=== PATIENT | female | born 2000 | race Caucasian/White ===

== ENCOUNTER 2019-09-21 10:53 | Emergency (ER) | payer MEDICAID, SELFPAY ==
[2019-09-21 10:55] VITALS: BP 119/83; PULSE 99; RESP 17; TEMP 36.6; O2SAT 99; BMI 25.9
--- NOTE | 2019-09-21 11:17 | ED.DCSUM_ITS ---
- ER Visit Summary Date of Service: 09/21/19 Chief Complaint: Headaches History of Present Illness: The patient is a 19 F significant past medical history of SVT. Patient states she has had headaches intermittently for the last 3 years. Currently she is under a lot of stress because her and her child's father are currently . She moved back to this area and was previously living in [place]. States that she often gets headaches. Initially they were daily now 2-3 times a week. No fever. No trauma. Only mild sinus congestion. No history of intracranial bleeds or aneurysms. Physical Examination: Young female no acute distress. Vital signs are stable and afebrile. HEENT exam unremarkable. Pupils are reactive light extra motions are intact. No facial droop. No signs of trauma. TMs normal. Neck nontender. No meningismus. Able to touch chin to chest. Lungs clear. Heart regular rhythm no murmur. Abdomen soft nontender. Extremities moves all 4. Neurovascular intact. Neurologically she is awake alert. No focal motor or sensory deficits. 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 Fingertip to nose within normal limits. Dorsi plantarflexion intact. Normal [id number]. NIH score 0. Test Results: None Emergency Department Course and Treatment: Patient's exam is normal. She has mild discomfort in her neck consistent with tension headache. Treatment Plan: Motrin or Tylenol for pain. Get established with a local primary care physician. Disposition: Discharge Impression: Tension headaches This note was generated with [employer] dictation software. It may contain incorrect words, spelling, and punctuation that were not noted in review of the chart prior to signing ED Disposition - Plan for ED Patient: Referrals: Care Physician,No Primary [Primary Care Provider] -
--- NOTE | 2019-09-21 11:20 | ED.DEP ---
ED Disposition - Plan for ED Patient: Disposition: Home or Assisted Living Instructions: Tension Headaches Prescriptions: Albuterol IH (ProAir) [Proair Hfa] 2 puff INHALATION Q4H PRN PRN #1 inhaler PRN Reason: Wheezing Prescription Printed Referrals: Rosendo Lanza MD [STAFF PHYSICIAN] - As Needed Additional Instructions: Use Tylenol and/or Motrin for your headaches. Follow-up with a local primary care physician.
[2019-09-21 12:01] VITALS: RESP 16
== END 2019-09-21 12:01 | disposition home or self-care (01) ==
PROVIDERS: Emergency Provider Emergency Medicine
DX: G44.209 Tension-type headache, unspecified, not intractable (principal); I47.1 Supraventricular tachycardia; Z72.0 Tobacco use
CPT/HCPCS: 99282

== ENCOUNTER 2019-10-03 11:19 | Emergency (ER) | payer MEDICAID, SELFPAY ==
[2019-10-03 11:19] VITALS: BP 118/79; PULSE 97; RESP 16; TEMP 36.3; O2SAT 98; BMI 25.7
--- NOTE | 2019-10-03 11:27 | RAD_ITS ---
STUDY: X-RAY - RIGHT HAND, ATTENTION FOURTH FINGER REASON FOR EXAM: Female, 19 years old. Pain following injury. TECHNIQUE: 3 view(s) of the finger were obtained. COMPARISON: None. FINDINGS: Normal metacarpal head. Normal metacarpophalangeal joint. Normal proximal phalanx. Normal middle phalanx. Normal distal phalanx. Normal proximal interphalangeal joint. Normal distal interphalangeal joint. RAD/Finger(s) Min 2 Views IMPRESSION: Normal x-ray examination of the finger. Electronically Signed: Magen Manzanares, at 12:15 EST , Service support ,
--- NOTE | 2019-10-03 11:29 | ED.VISSUMM ---
- ER Visit Summary Date of Service: 10/03/19 Chief Complaint: Right ring finger injury History of Present Illness: The patient is a 19 F who sustained an injury to her right ring finger yesterday. She states her hand came down striking bluntly and object resulting in extension injury. She notes that the ring finger is tender and swollen today. Physical Examination: Afebrile vital signs stable There is tenderness and swelling of the DIP joint of the right ring finger. No obvious deformity. Neurovascular intact. Excellent capillary refill. No evidence of infection Test Results: Finger films were negative for fracture. Emergency Department Course and Treatment: This will be treated as a sprain. Will silvia tape. Conservative treatment with Motrin ice. Follow-up 10 to 14 days if not improved Impression: 1. Right ring finger DIP joint sprain This note was generated with [employer] dictation software. It may contain incorrect words, spelling, and punctuation that were not noted in review of the chart prior to signing ED Disposition - Plan for ED Patient: Disposition: Home or Assisted Living Instructions: Sprain Finger Referrals: Marquise Kearney MD [STAFF PHYSICIAN] - 10-14 Days if not better
== END 2019-10-03 12:07 | disposition home or self-care (01) ==
LOC: ED 12:01
PROVIDERS: Emergency Provider Emergency Medicine
DX: S63.634A Sprain of interphalangeal joint of right ring finger, initial encounter (principal); W22.8XXA Striking against or struck by other objects, initial encounter; Y93.9 Activity, unspecified; Y92.9 Unspecified place or not applicable; J45.909 Unspecified asthma, uncomplicated; Z72.0 Tobacco use
CPT/HCPCS: 73140; 99282

== ENCOUNTER 2019-12-05 23:36 | Emergency (ER) | payer MEDICAID, SELFPAY ==
[2019-12-05 23:36] VITALS: BP 146/101; PULSE 111; RESP 18; TEMP 36.2; O2SAT 99; BMI 26.6
--- NOTE | 2019-12-05 23:42 | ED.RN ---
RN CALLED FOR EKG, PULLED OLD EKGS FOR
--- NOTE | 2019-12-05 23:47 | EKG12_ITS ---
Test Reason : CP Blood Pressure : / mmHG Vent. Rate : 100 BPM Atrial Rate : 100 BPM P-R Int : 164 ms QRS Dur : 090 ms QT Int : 344 ms P-R-T Axes : 048 076 038 degrees QTc Int : 443 ms Normal sinus rhythm Normal ECG Confirmed by CATHI CORTÉS, MARCUS ([id number]), writer editor WASHINGTON NUÑEZ ([id number]) on 12/09/2019 9:49:34 AM Referred By: MONIQUE Confirmed By:UNIQUE WINKLER MD
--- NOTE | 2019-12-06 | RAD_ITS ---
STUDY: X-RAY CHEST REASON FOR EXAM: Female, 19 years old. PT REPORTS INTERMITTENT HEART PALPITATIONS AND CHEST TIGHTNESS. HX OF SVT. SOB, DIZZNESS TECHNIQUE: PA and lateral views of the chest. COMPARISON: 10/29/2017. FINDINGS: The lungs are clear and expanded. There is no demonstrated pleural abnormality. Normal size heart. Normal mediastinum and claude. Normal visualized pulmonary arteries. Normal visualized aortic arch and descending thoracic aorta. Normal visualized thoracic spine. Normal visualized ribs, clavicles, and shoulders. There is no demonstrated abnormality of the visualized soft tissue structures of the upper abdomen. RAD/Chest PA and Lateral IMPRESSION: Normal x-ray examination of the chest. Electronically Signed: Blossom Deleon MD at 0:38 EST , Service support ,
--- NOTE | 2019-12-06 00:02 | ED.VIS.GEN ---
History of Present Illness Chief Complaint: Palpitations Informant: Patient Onset: Days Context: Gradual Onset Timing: Intermittent Current Severity: Moderate Maximum Severity: Moderate Narrative: The patient is an otherwise healthy 19-year-old female with history of SVT when she was younger. She had an ablation in 2005. She states she is been in her normal state of health. Over the past 10 days, she has had intermittent chest tightness. She describes a sharp stabbing pain in various areas of the chest that would last seconds to minutes. She states at times is worse with breathing. She also feels like her heart has been racing intermittently. She denies any loss of consciousness. She has no family history of coronary vascular disease. She denies any history of pulmonary embolus. She has had a scant cough, but denies any productive sputum. She states tonight, the symptoms are worse so she came into the emergency department. Prior similar symptoms: Yes Recent Illness/Hospitalization: No Past Medical History - Allergies and Home Meds Allergies/Adverse Reactions: Allergies diphenhydramine [From Benadryl] Allergy (Verified 12/05/19 23:36) Unknown Penicillins [PCN] Allergy (Verified 12/05/19 23:36) Unknown Primary Care Physician: Gilbert Ojeda MD [STAFF PHYSICIAN] - Prior records reviewed: Yes Past Medical History: - - History of SVT status post ablation Surgical History: noncontributory Smoking Status: Current some day smoker Review of Systems General: Denies: Chills, Fever, Sweats Eyes: Denies: Visual changes - bilaterally, Diplopia ENT: Denies: Rhinorrhea, Sore throat Cardiovascular: Reports: Chest pain, Palpitations Respiratory: Reports: Dyspnea Gastrointestinal: Denies: Abdominal pain, Nausea, Vomiting, Diarrhea, Melena, Hematochezia Genitourinary: Denies: Dysuria, Hematuria, Frequency Musculoskeletal: Denies: Back pain, Extremity Pain Skin: Denies: Rash, Wounds Neurological: Denies: Headache, Weakness, Numbness Physical Exam Vital Signs/Narrative: Vital Signs Temp Pulse Resp BP Pulse Ox 12/05/19 23:36 97.1 F L 111 H 18 146/101 H 99 Inital Vital Signs reviewed: Yes General: Well nourished, Well developed, No Acute Distress Head: Normocephalic, Atraumatic Eyes: Perrl, EOMI ENT: Moist mucous membranes, No rhinorrhea Neck: Supple, Nontender Cardiovascular: Regular rate, Regular rhythm, No murmurs Respiratory: No distress, CTA bilaterally, Chest nontender Abdomen: Soft, Nontender, Nondistended, Normal bowel sounds Back: Nontender, Normal Inspection Extremities: Nontender, No edema Skin: Normal color, No rash Neurological: Alert, Oriented x3, Cranial nerves II-XII grossly intact, Normal Strength, Normal Sensation Psychological: Normal affect, Normal Mood Diagnostic/Tx/Re-eval Clinical Impression(s) from Imaging Studies Chest X-Ray 12/06/19 00:00 IMPRESSION: Normal x-ray examination of the chest. Electronically Signed: Blossom Deleon MD at 0:38 EST , Service support , Abnormal Lab Results 12/05/19 12/05/19 12/05/19 23:55 23:55 23:55 WBC 10.5 RBC 4.70 Hgb 11.2 L Hct 37.2 MCV 79.1 L MCH 23.8 L MCHC 30.1 L RDW Std Deviation 44.6 H RDW Coeff of Jessica 15.6 H Plt Count 450 MPV 10.9 Immature Gran % (Auto) 0.300 Neut % (Auto) 59.2 Lymph % (Auto) 29.8 [place] % (Auto) 7.8 Eos % (Auto) 2.4 Baso % (Auto) 0.5 Absolute Neuts (auto) 6.2 Absolute Lymphs (auto) 3.13 Nucleated RBC % 0 D-Dimer Quant (PE/DVT) < 0.27 L Sodium 142 Potassium 4.1 Chloride 109 H Carbon Dioxide 29.0 Anion Gap 4 L BUN 16 Creatinine 0.89 Estim Creat Clear Calc 72.43 Est GFR (MDRD) Af Amer 104 Est GFR (MDRD) Non-Af 86 BUN/Creatinine Ratio 18.0 Glucose 98 Calcium 9.4 Total Bilirubin 0.10 L AST 17 ALT 24 Alkaline Phosphatase 144 H Troponin I < 0.015 Total Protein 8.0 Albumin 4.0 Globulin 4.0 Albumin/Globulin Ratio 1.0 Urine Color Urine Clarity Urine pH Ur Specific Rousseau Urine Protein Urine Glucose (UA) Urine Ketones Urine Occult Blood Urine Nitrite Urine Bilirubin Urine Urobilinogen Ur Leukocyte Esterase Urine RBC Urine WBC Ur Squamous Epith Cells Urine Bacteria Urine Mucus Urine Test 12/06/19 12/06/19 00:30 00:30 WBC RBC Hgb Hct MCV MCH MCHC RDW Std Deviation RDW Coeff of Jessica Plt Count MPV Immature Gran % (Auto) Neut % (Auto) Lymph % (Auto) [place] % (Auto) Eos % (Auto) Baso % (Auto) Absolute Neuts (auto) Absolute Lymphs (auto) Nucleated RBC % D-Dimer Quant (PE/DVT) Sodium Potassium Chloride Carbon Dioxide Anion Gap BUN Creatinine Estim Creat Clear Calc Est GFR (MDRD) Af Amer Est GFR (MDRD) Non-Af BUN/Creatinine Ratio Glucose Calcium Total Bilirubin AST ALT Alkaline Phosphatase Troponin I Total Protein Albumin Globulin Albumin/Globulin Ratio Urine Color Yellow Urine Clarity Clear Urine pH 6.0 Ur Specific Rousseau 1.025 Urine Protein Negative Urine Glucose (UA) Normal Urine Ketones Negative Urine Occult Blood Negative Urine Nitrite Negative Urine Bilirubin Negative Urine Urobilinogen Normal Ur Leukocyte Esterase 100 H Urine RBC 0 SEEN Urine WBC 0-5 SEEN Ur Squamous Epith Cells 0-5 SEEN Urine Bacteria 0 SEEN Urine Mucus 0 SEEN Urine Test Negative - Rhythm Strip Rhythm Strip: Sinus Rhythm Rate: 90 Ectopy: None - EKG Initial EKG Interpretation: Sinus Rhythm, No Acute Injury Pattern Prior: Unchanged - Medical Decision Making EKG was obtained on patient arrival. Was sinus rhythm. There was no SVT, WPW, or dysrhythmia. The patient's pain seems very atypical, but given her cardiac history, metabolic work-up was pursued. There is a component of pleuritic pain so d-dimer was obtained was negative. Cardiac enzymes are unremarkable. Electrolytes are unremarkable. Patient is not . X-ray shows no evidence of volume overload, pneumothorax, or other dangerous process. At this point, I do feel that this is more likely symptomatic palpitations. With the patient's history, she will be given outpatient cardiology follow-up. She is comfortable with this plan of care and will be discharged home. Impression 1. Atypical chest pain 2. Palpitations ED Disposition - Plan for ED Patient: Instructions: Palpitations Referrals: Gilbert Ojeda MD [STAFF PHYSICIAN] -
[2019-12-06] MEDS: 0.9% Normal Saline 1,000 ML 1000 ML IV (00:03)
[2019-12-06] MEDS: Ketorolac 30 MG/ML Syringe IV (00:04)
[2019-12-06 00:20] LABS: Absolute Lymphocyte Count 3.13 X10^3/uL (0.83-4.51); Absolute Neutrophil Count 6.2 X10^3/uL (2.0-7.7); Basophil# 0.05 X10^3/uL; Basophil% 0.5 % (0-1); Eosinophil# 0.25 X10^3/uL; Eosinophils% 2.4 % (0-5); Hematocrit 37.2 % (37-47); Hemoglobin 11.2 g/dL (12.0-15.0); Lymphocyte # 3.13 X10^3/ul (4.0); Lymphocyte % 29.8 % (19-41); Mean Corp Hgb Conc 30.1 g/dL (32-36); Mean Corpuscular Hgb 23.8 pg (27.0-32.0); Mean Corpuscular Volume 79.1 fL (81-99); Mean Platelet Vol. 10.9 fl (6.2-12.0); Monocyte# 0.82 X10^3/uL; Monocyte% 7.8 % (0-10); NRBC Flagged by Analyzer 0 % (0-5); Neutrophil # 6.24 X10^3/uL (2.7-7.7); Neutrophil % 59.2 % (47-70); Platelet Count 450 K/mm3 (150-450); RBC Distribution Width CV 15.6 % (11.6-14.6); RBC Distribution Width SD 44.6 fl (35.1-43.9); White Blood Count 10.5 K/mm3 (4.4-11.0)
[2019-12-06 00:36] LABS: Bacteria 0 SEEN /hpf (None Seen); Mucous, Urine 0 SEEN /hpf (<or=2+); Red Blood Cells-Urine 0 SEEN /hpf (0-5)
[2019-12-06 00:37] LABS: Color, Urine Yellow (Yellow); Glucose, Dipstick Normal (Normal); Ketone-Dipstick Negative (Negative); Leukocyte Esterase-Dipstick 100 /ul (Negative); Nitrite-Dipstick Negative (Negative); Occult Blood-Urine Negative /ul (Negative); Protein-Dipstick Negative (Negative); Specific Gravity, Urine 1.025 (1.002-1.030); Urine Bilirubin Dipstick Negative (Negative); Urine Clarity Clear (Clear); Urine Urobilinogen Normal (Normal)
[2019-12-06 00:41] LABS: AST(SGOT) 17 U/L (15-37); Alanine Aminotransfer ALT/SGPT 24 U/L (13-56); Alkaline Phosphatase 144 U/L (45-117); Anion Gap 4 (5-15); BUN 16 mg/dL (7-18); Calcium,Total 9.4 mg/dL (8.5-10.1); Chloride 109 mmol/L (98-107); Creatinine, Serum 0.89 mg/dL (0.55-1.02); EST Glomerular Filtration Rate 86 mL/min (>60); Est Glom Filt Rate - Afr Amer 104 mL/min (>60); Estimated Creatinine Clearance 72.43 ml/min; Glucose 98 mg/dL (74-106); Potassium 4.1 mmol/L (3.5-5.1); Sodium Level 142 mmol/L (136-145)
[2019-12-06 00:43] LABS: Squamous Epithelial Cells - UA 0-5 SEEN /hpf (5-10); White Blood Cells 0-5 SEEN /hpf (0-5)
[2019-12-06 00:44] LABS: Internal QC Validated? YES +Cl - CLEAR BKGD; Pregnancy, Urine Negative Negative
[2019-12-06 00:49] LABS: D-Dimer Quantitative (DVT/PE) < 0.27 FEU/ug/m (0.27-0.49)
[2019-12-06 00:58] VITALS: BP 112/75; PULSE 86; RESP 15; O2SAT 98
== END 2019-12-06 00:59 | disposition home or self-care (01) ==
PROVIDERS: Emergency Provider Emergency Medicine
DX: R07.89 Other chest pain (principal); R07.81 Pleurodynia; I47.1 Supraventricular tachycardia; R06.00 Dyspnea, unspecified; R05 Cough; F17.200 Nicotine dependence, unspecified, uncomplicated; Z88.0 Allergy status to penicillin; Z88.8 Allergy status to other drugs, medicaments and biological substances
CPT/HCPCS: 71046; 80053; 81001; 81025; 84484; 85025; 85379; 93005; 96361; 96374; 99284; J7030; A4216

== ENCOUNTER 2020-01-25 20:39 | Emergency (ER) | payer MEDICAID, SELFPAY ==
[2020-01-25 20:41] VITALS: BP 132/88; PULSE 96; RESP 17; TEMP 36.6; O2SAT 97; BMI 25.4
--- NOTE | 2020-01-25 21:03 | US_ITS ---
STUDY: FIRST TRIMESTER OBSTETRICAL ULTRASOUND REASON FOR EXAM: Female, 19 years old RT TO MIDLINE PELVIC PAIN - SHARP CHEST PAIN - JUST TODAY NAUSEA beta-hCG 1614 LMP: 12/19/2019 TECHNIQUE: Transvaginal TECHNICAL QUALITY: Adequate. PRIOR ULTRASOUND: None. FINDINGS: There is visualization of a single gestational sac in a normal intrauterine position. The mean sac diameter (MSD) measures 4.9 mm, indicating an estimated gestational age (EGA) of 5 weeks, 0 days. The gestational sac shape is within normal limits. Probable adjacent subchorionic hemorrhage. There is no demonstrated yolk sac. The placenta is non-visualized. No pole is seen at this time. The estimated gestation age (EGA) by LMP is 5 weeks, 2 days. The estimated date of delivery (DARION) by LMP is 09/24/2020. The estimated gestation age (EGA) by US is 5 weeks, 0 days. The estimated date of delivery (DARION) by US is 09/26/2020. The uterus measures 7.9 x 5.6 x 5.4 cm. There is no demonstrated uterine fibroid. The cervix is closed. The right ovary measures 2.9 x 2.5 x 2.2 cm. There is no right ovarian cyst. There is no visualized right adnexal mass or complex lesion. The left ovary measures 2.2 x 1.3 x 1.2 cm. There is no left ovarian cyst. There is no visualized left adnexal mass or complex lesion. There is no fluid in the cul de sac. Debris is present in the bladder. US/Transvaginal w/Preg US IMPRESSION: Intrauterine gestational sac with estimated sonographic age of 5 weeks 0 days. Probable adjacent subchorionic hemorrhage. No pole or yolk sac is visible at this time. It is likely too early for sonographic visualization of those structures and continued ultrasound and beta hCG follow up is needed. Electronically Signed: Fabian Gonzalez MD at 22:19 EST Tel , Service support ,
[2020-01-25 21:16] LABS: Mucous, Urine 0 SEEN /hpf (<or=2+); Red Blood Cells-Urine 0 SEEN /hpf (0-5)
[2020-01-25 21:23] LABS: Color, Urine Yellow (Yellow); Glucose, Dipstick Normal (Normal); Ketone-Dipstick Negative (Negative); Leukocyte Esterase-Dipstick 500 /ul (Negative); Nitrite-Dipstick Negative (Negative); Occult Blood-Urine Negative /ul (Negative); Protein-Dipstick Negative (Negative); Specific Gravity, Urine 1.015 (1.002-1.030); Urine Bilirubin Dipstick Negative (Negative); Urine Clarity Sl. Cloudy (Clear); Urine Urobilinogen Normal (Normal); Urine pH 6.5 (5.0 - 8.0)
[2020-01-25 21:25] LABS: Internal QC Validated? YES +Cl - CLEAR BKGD
[2020-01-25 21:27] LABS: Pregnancy, Urine Positive Negative
[2020-01-25 21:36] LABS: Squamous Epithelial Cells - UA 0-5 SEEN /hpf (5-10); White Blood Cells 10-25 SEEN /hpf (0-5)
[2020-01-25 21:37] LABS: Bacteria 1+ /hpf (None Seen)
[2020-01-25 21:52] LABS: hCG Titer Quant., Serum 1614 mIU/mL (1-3)
--- NOTE | 2020-01-25 22:33 | ED.VIS.FEGU ---
History of Present Illness Chief Complaint: Abd Pain Informant: Patient Narrative: Patient presenting for evaluation due to pelvic pain. Patient's last normal menstrual period was on 25 November, she reports that she started to develop pelvic pain over the course of the last couple of days. She reports that it comes and goes. Patient states that she has not had any vaginal bleeding or discharge but has difficulty at the end of her urinating stream. She denies any hematuria. Patient denies any fevers, but does state that she has been having some issues with nausea and vomiting. Patient reports that she took a home test that was found to be positive. She is a G2, P1. She is unsure of her blood type. Past Medical History - Allergies and Home Meds Allergies/Adverse Reactions: Allergies diphenhydramine [From Benadryl] Allergy (Verified 01/25/20 20:39) Unknown Penicillins [PCN] Allergy (Verified 01/25/20 20:39) Unknown Primary Care Physician: Care Physician,No Primary [Primary Care Provider] - Past Medical History: None Surgical History: noncontributory Smoking Status: Light Smoker (<10/day) Review of Systems General: Denies: Chills, Fever, Sweats Eyes: Denies: Visual changes - bilaterally, Diplopia ENT: Denies: Rhinorrhea, Sore throat Cardiovascular: Denies: Chest pain, Palpitations Respiratory: Denies: Dyspnea, Cough, Dyspnea on exertion Gastrointestinal: Reports: Abdominal pain, Nausea, Vomiting Genitourinary: Reports: Dysuria Musculoskeletal: Denies: Back pain, Extremity Pain Skin: Denies: Rash, Wounds Neurological: Denies: Headache, Weakness, Numbness Physical Exam Vital Signs/Narrative: Vital Signs Temp Pulse Resp BP Pulse Ox 01/25/20 20:41 97.8 F 96 17 132/88 H 97 Inital Vital Signs reviewed: Yes General: Well nourished, Well developed Head: Normocephalic, Atraumatic Eyes: Perrl, EOMI ENT: Moist mucous membranes, No rhinorrhea Neck: Supple, Nontender Cardiovascular: Regular rate, Regular rhythm, No murmurs Respiratory: No distress, CTA bilaterally, Chest nontender Abdomen: Soft, Nontender, Nondistended, Normal bowel sounds : Speculum exam: Normal external genitalia, No vaginal lesions, No vaginal discharge, No blood in vault, No active bleeding Bimanual exam: No cervical motion tenderness, Os closed, Normal size uterus, Nontender uterus Back: Nontender, Normal Inspection Extremities: Nontender, No edema Skin: Normal color, No rash Neurological: Alert, Oriented x3, Cranial nerves II-XII grossly intact, Normal Strength, Normal Sensation Psychological: Normal affect Diagnostic/Tx/Re-eval - Medical Decision/Diagnostic Studies Patient presented secondary to pelvic pain with positive test. I attempted to perform a bedside pelvic ultrasound on the patient, but she had just voided and I was not able to identify any sort of products of conception. Urinalysis was obtained which does show evidence of urinary tract infection. Patient's urine was positive, her quantitative hCG was found to be in the 1000 range consistent with early . Pelvic ultrasound demonstrated a gestational sac with no pole and a possible subchorionic hemorrhage. Patient at this point has early , and a urinary tract infection. She requested treatment for nausea, she will be given Zofran. She will be treated with Macrobid for treatment of her urinary tract infection. Patient reports that she has follow-up coming with Dr. Lujan, she was instructed to keep that. ED Disposition - Plan for ED Patient: Disposition: Home or Assisted Living Diagnosis: First trimester , Urinary tract infection Instructions: Bladder Infection, Female (Adult), ABDOMINAL PAIN, Early Prescriptions: Nitrofurantoin Macrocrystals [Macrobid] 100 mg PO Q12 #10 cap Prescription Printed Ondansetron [Zofran Odt] 8 mg PO Q8H PRN PRN #20 tab PRN Reason: Nausea Prescription Printed Referrals: Flavia Lujan MD [STAFF PHYSICIAN] - Keep Danika appointment
[2020-01-25] MEDS: Ondansetron ODT 4 MG Tablet PO (22:36)
[2020-01-25] MEDS: Nitrofurantoin Macrocrystals 100 MG Capsule PO (22:36)
[2020-01-25 22:41] VITALS: BP 128/61; PULSE 78; RESP 18; O2SAT 98
== END 2020-01-25 22:42 | disposition home or self-care (01) ==
PROVIDERS: Emergency Provider Emergency Medicine
DX: O23.41 Unspecified infection of urinary tract in pregnancy, first trimester (principal); O21.9 Vomiting of pregnancy, unspecified; F17.200 Nicotine dependence, unspecified, uncomplicated; O99.331 Smoking (tobacco) complicating pregnancy, first trimester; Z88.0 Allergy status to penicillin; Z88.8 Allergy status to other drugs, medicaments and biological substances; Z3A.01 Less than 8 weeks gestation of pregnancy
CPT/HCPCS: 76817; 81001; 81025; 84702; 86900; 86901; 99283; A4216

== ENCOUNTER 2020-01-30 09:51 | Emergency (ER) | payer MEDICAID, SELFPAY ==
[2020-01-30 09:53] VITALS: BP 132/61; PULSE 91; RESP 17; TEMP 36.9; O2SAT 97; BMI 25.2
--- NOTE | 2020-01-30 10:07 | ED.DCSUM_ITS ---
History of Present Illness Chief Complaint: Eye Problem Informant: Patient Onset: Yesterday Current Severity: Mild Maximum Severity: Moderate Narrative: Patient states she developed right eye irritation yesterday with what she thought was a stye. After she got home and looked at her eyes she noted white drainage from her eye. She did have some crusting and watering this morning. She does report some irritation of her eye that is worse with blinking. She is not sure if she may have gotten something in her eye, but does not have definitive foreign body sensation. She does wear glasses. She denies contact use. - Past Medical History (1) Early stage of Status: Acute Past Medical History - Allergies and Home Meds Allergies/Adverse Reactions: Allergies diphenhydramine [From Benadryl] Allergy (Verified 01/30/20 09:53) CHILDHOOD ALLERGY Penicillins [PCN] Allergy (Verified 01/30/20 09:53) CHILDHOOD ALLERGY Primary Care Physician: Care Physician,No Primary [Primary Care Provider] - Prior records reviewed: Yes Surgical History: noncontributory Smoking Status: Never smoker Review of Systems Eyes: Reports: - - Irritation right eye. Denies: Visual changes - left, Visual changes - right ENT: Denies: Bilateral ear pain, Sore throat Cardiovascular: Denies: Chest pain Respiratory: Denies: Dyspnea, Cough Gastrointestinal: Denies: Abdominal pain, Nausea, Vomiting, Diarrhea Skin: Denies: Rash Neurological: Denies: Headache Physical Exam Vital Signs/Narrative: Vital Signs Temp Pulse Resp BP Pulse Ox 01/30/20 09:53 98.5 F 91 17 132/61 H 97 Inital Vital Signs reviewed: Yes General: Well nourished, Well developed Head: Normocephalic Eyes: Perrl, EOMI, - - Mild conjunctival injection. Mild eyelid edema. No sign of periorbital cellulitis. ENT: Moist mucous membranes Neck: Supple Cardiovascular: Regular rate, Regular rhythm Respiratory: No distress, CTA bilaterally Abdomen: Soft, Nontender Diagnostic/Tx/Re-eval - Medical Decision Making Tetracaine was applied to the right eye. Fluorescein was applied with no evidence of uptake. Patient's exam findings are consistent with conjunctivitis. She will be given gentamicin ophthalmic eyedrops. 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 ED Disposition - Plan for ED Patient: Disposition: Home or Assisted Living Diagnosis: Conjunctivitis Instructions: CONJUNCTIVITIS, Non-Specific Referrals: Matthew Chery MD [STAFF PHYSICIAN] - As Needed Additional Instructions: Gentamicin eye drops - 2 drops to right eye every 4-6 hours until symptoms resolved for 24 hours.
[2020-01-30] MEDS: Fluorescein 1 MG STRIP 1 STRIP RIGHT EYE (10:21)
[2020-01-30] MEDS: Tetracaine 0.5% Ophthalmic Bottle 1 DRP RIGHT EYE (10:21)
[2020-01-30] MEDS: Gentamicin Sulfate 1 OPTH.BTL 2 DRP RIGHT EYE (11:03)
== END 2020-01-30 11:05 | disposition home or self-care (01) ==
LOC: ED 10:36
PROVIDERS: Emergency Provider Emergency Medicine
DX: H10.9 Unspecified conjunctivitis (principal); H02.843 Edema of right eye, unspecified eyelid; Z88.8 Allergy status to other drugs, medicaments and biological substances; Z88.0 Allergy status to penicillin
CPT/HCPCS: 99283

== ENCOUNTER 2020-01-31 08:40 | Emergency (ER) | payer MEDICAID, SELFPAY ==
[2020-01-30 09:53] VITALS: BMI 25.2
[2020-01-31 08:41] VITALS: BP 151/74; PULSE 91; RESP 18; TEMP 36.6; O2SAT 98; BMI 26.2
--- NOTE | 2020-01-31 08:52 | CT_ITS ---
STUDY: CT ORBITS WITH CONTRAST REASON FOR EXAM: Female, 19 years old. PERIORBITAL EDEMA RIGHT EYE -- CURRENTLY BEING TREATED FOR PINK EYE RADIATION DOSAGE (If Supplied By Facility): CTDIvol = ( 29.38 ) mGy, DLP = ( 341.77 ) mGycm TECHNIQUE: The patient was scanned in a multi detector CT scanner. Transaxial imaging was performed following the intravenous administration of IV 100mL [id number]-300. Sagittal and coronal images were reconstructed. Individualized dose optimization techniques were used for this CT. COMPARISON: None. FINDINGS: Normal globes. Normal intraconal spaces. Normal optic nerve sheath complex. Normal bilateral extraocular muscles. Normal lacrimal glands. Normal bilateral medial and inferior orbital zapata. Normal bilateral maxillary bones. Normal bilateral frontozygomatic arches. Normal bilateral zygomatic temporal arches. Normal frontal sinus. Normal ethmoidal sinuses. Normal maxillary sinuses. Normal sphenoid sinuses. Normal soft tissue structures. There is no demonstrated abnormal enhancement. CT/Orb Sella Post Fossa Ear W/CON IMPRESSION: Normal enhanced CT examination of the bilateral orbits. Electronically Signed: Dionte Davies MD at 10:08 EDT Tel , Service support ,
--- NOTE | 2020-01-31 08:54 | ED.VIS.GEN ---
History of Present Illness Chief Complaint: Eye Problem Informant: Patient Onset: Days Context: Gradual Onset Current Severity: Moderate Maximum Severity: Moderate Narrative: Patient was seen in the ER yesterday for conjunctivitis of the right eye. Patient states she is been using the eyedrops every 4-6 hours as recommended. She feels that the eye is more swollen today and she has a lump on her eye. She now tells me that she has had similar symptoms in the past when she got a cat hair in her eye and had an allergic reaction to it. She denies foreign body sensation. She states her eye feels very dry when she blinks, however she is still tearing. - Past Medical History (1) Early stage of Status: Acute Past Medical History - Allergies and Home Meds Allergies/Adverse Reactions: Allergies diphenhydramine [From Benadryl] Allergy (Verified 01/31/20 08:43) CHILDHOOD ALLERGY Penicillins [PCN] Allergy (Verified 01/31/20 08:43) CHILDHOOD ALLERGY Primary Care Physician: Care Physician,No Primary [Primary Care Provider] - Surgical History: noncontributory Smoking Status: Never smoker Review of Systems General: Denies: Chills, Fever Eyes: Reports: - - Right eyelid swelling and tearing ENT: Denies: Bilateral ear pain Cardiovascular: Denies: Chest pain Respiratory: Denies: Dyspnea, Cough Gastrointestinal: Denies: Abdominal pain Skin: Denies: Rash Neurological: Denies: Headache Allergy: Denies: Uticaria Physical Exam Vital Signs/Narrative: Vital Signs Temp Pulse Resp BP Pulse Ox 01/31/20 08:41 98 F 91 18 151/74 H 98 Inital Vital Signs reviewed: Yes General: Well nourished, Well developed Head: Normocephalic Eyes: Perrl, EOMI, - - Patient now has ecchymosis noted to the inferior lateral aspect of the right eye. She continues to have upper and lower eyelid edema. No significant erythema. Extraocular movements are fully intact without difficulty. ENT: Moist mucous membranes Neck: Supple Cardiovascular: Regular rate, Regular rhythm Respiratory: No distress, CTA bilaterally Abdomen: Soft, Nontender Extremities: Nontender Skin: Normal color Psychological: Normal affect Diagnostic/Tx/Re-eval Impressions CT Orbit Sella Inner 01/31/20 08:52 IMPRESSION: Normal enhanced CT examination of the bilateral orbits. Electronically Signed: Dionte Davies MD at 10:08 EDT Tel , Service support , 01/31/20 08:52 CT Orb [Orb Sella Post Fossa Ear W/CON] [CT] Stat - Medical Decision Making Dur to continued periorbital edema, CT scan of the orbits was obtained. No evidence of significant cellulitis or abscess. Patient's eye was irrigated here. On repeat evaluation she does report improvement. I am suspicious her conductivitis may be allergic in nature. She is not able to take Benadryl secondary to an allergy. She will be treated with a short burst of steroids. Follow-up with Dr. Lang if not improving. ED Disposition - Plan for ED Patient: Disposition: Home or Assisted Living Diagnosis: Conjunctivitis Instructions: CONJUNCTIVITIS, Non-Specific Prescriptions: Prednisone [Deltasone] 40 mg PO DAILY #6 tab Transmission Status: Pending to [facility] [place] Referrals: Matthew Chery MD [STAFF PHYSICIAN] - 3-5 Days if not improving
[2020-01-31] MEDS: Acetaminophen 500 MG Tablet 1000 MG PO (09:16)
[2020-01-31 10:56] VITALS: BP 148/71; PULSE 90; RESP 16; O2SAT 98
== END 2020-01-31 10:56 | disposition home or self-care (01) ==
PROVIDERS: Emergency Provider Emergency Medicine
DX: H10.9 Unspecified conjunctivitis (principal); H05.229 Edema of unspecified orbit; S05.11XA Contusion of eyeball and orbital tissues, right eye, initial encounter; S00.201A Unspecified superficial injury of right eyelid and periocular area, initial encounter; X58.XXXA Exposure to other specified factors, initial encounter; Y93.9 Activity, unspecified; Y92.9 Unspecified place or not applicable; Y99.9 Unspecified external cause status; Z88.8 Allergy status to other drugs, medicaments and biological substances; Z88.0 Allergy status to penicillin
CPT/HCPCS: 70481; 99285; Q9967

== ENCOUNTER 2020-02-01 22:30 | Emergency (ER) | payer MEDICAID, SELFPAY ==
[2020-01-31 08:41] VITALS: BMI 26.2
[2020-02-01 22:31] VITALS: BP 131/90; PULSE 104; RESP 18; TEMP 36.6; O2SAT 96; BMI 25.7
--- NOTE | 2020-02-01 23:06 | ED.VISSUMM ---
- ER Visit Summary Date of Service: 02/01/20 Chief Complaint: Right eye redness History of Present Illness: The patient is a 19 F who continues with right eye redness. She states not getting any better. Her employer would not let her go back to work until it improves. She is here for work note. She states that she cannot get a hold of ophthalmology. She has been seen here twice for this. She was placed on gentamicin eyedrops and also a steroid. Physical Examination: Vital signs reviewed. HEENT exam shows some right eye redness with diffuse injection. Mild periorbital swelling. No visual changes. Pupils are equal. Extraocular motions are intact without pain. No periorbital cellulitis or orbital cellulitic changes Test Results: None performed Emergency Department Course and Treatment: The patient will be given a work note. I do not feel she needs any further testing as she is on appropriate therapies. I will give her ophthalmology's phone number again so she can call. Treatment Plan: [] Disposition: Discharge Impression: Conjunctivitis, subsequent visit This note was generated with [employer] dictation software. It may contain incorrect words, spelling, and punctuation that were not noted in review of the chart prior to signing ED Disposition - Plan for ED Patient: Disposition: Home or Assisted Living Instructions: CONJUNCTIVITIS, Viral Referrals: Care Physician,No Primary [Primary Care Provider] - Matthew Chery MD [STAFF PHYSICIAN] -
== END 2020-02-01 23:26 | disposition home or self-care (01) ==
LOC: ED 23:22
PROVIDERS: Emergency Provider Emergency Medicine
DX: H10.9 Unspecified conjunctivitis (principal)
CPT/HCPCS: 99282

== ENCOUNTER 2020-02-05 20:10 | Emergency (ER) | payer MEDICAID, SELFPAY ==
[2020-02-05 20:11] VITALS: BP 134/85; PULSE 109; RESP 15; TEMP 36.7; O2SAT 97; BMI 26.2
--- NOTE | 2020-02-05 22:18 | ED.DCSUM_ITS ---
- ER Visit Summary Date of Service: 02/05/20 Chief Complaint: Right eye redness and mild swelling with discharge History of Present Illness: The patient is a 19 F prior history of SVT with ablation and asthma. 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 Patient states since 01/24/2020 about 12 days now she has had right eye redness and discharge. She is been seen in the emergency department several times. Placed on antibiotic ointment. She says really never improved. She denies any foreign body. She does not wear contacts. She does wear glasses. She denies any trauma. No foreign body sensation. Physical Examination: Well-appearing 19-year-old no acute distress vital signs stable afebrile. HEENT exam pupils round reactive laser motions are intact. There is no pain with range of motion. Both the upper and lower lids are mildly swollen and red. Currently there is no discharge. Right eye is injected. No foreign body. No obvious corneal abrasion. No palsy. No preauricular lymphadenopathy. No orbital or periorbital cellulitis. No proptosis. Neck nontender no lymphadenopathy. Otherwise exam unremarkable. Test Results: None Emergency Department Course and Treatment: Exam and history are consistent with a right I conjunctivitis. Patient's been referred multiple times and has not seen the fermentation engineer as of yet. Should be placed on bacitracin ophthalmic ointment. Cool compresses to her eye. See the fermentation engineer. Treatment Plan: Bacitracin twice daily. Follow-up with ophthalmology. Disposition: Discharge Impression: Acute right eye conjunctivitis This note was generated with [employer] dictation software. It may contain incorrect words, spelling, and punctuation that were not noted in review of the chart prior to signing ED Disposition - Plan for ED Patient: Referrals: Care Physician,No Primary [Primary Care Provider] -
--- NOTE | 2020-02-05 22:20 | ED.DEP ---
ED Disposition - Plan for ED Patient: Disposition: Home or Assisted Living Instructions: CONJUNCTIVITIS, Viral Referrals: Matthew Chery MD [STAFF PHYSICIAN] - 1 Day Additional Instructions: See the eye doctor tomorrow. Call first thing in the morning and they will get you in tomorrow. Cold compresses to your eye. Apply ointment twice daily. Motrin for swelling.
[2020-02-05 22:28] VITALS: BP 129/82; PULSE 101; RESP 16; O2SAT 98
== END 2020-02-05 22:30 | disposition home or self-care (01) ==
PROVIDERS: Emergency Provider Emergency Medicine
DX: H10.31 Unspecified acute conjunctivitis, right eye (principal); J45.909 Unspecified asthma, uncomplicated
CPT/HCPCS: 99283

== ENCOUNTER 2020-02-08 19:07 | Emergency (ER) | payer MEDICAID, SELFPAY ==
[2020-02-08 19:08] VITALS: BP 153/90; PULSE 90; RESP 18; TEMP 36.7; O2SAT 98; BMI 25.4
[2020-02-08] MEDS: 0.9% Normal Saline 1,000 ML 1000 ML IV (19:38)
[2020-02-08] MEDS: Ondansetron 4 MG/2 ML Vial IV (19:38)
--- NOTE | 2020-02-08 19:43 | ED.VISSUMM ---
- ER Visit Summary Date of Service: 02/08/20 Chief Complaint: Nausea and vomiting History of Present Illness: The patient is a 19 F who presents with nausea and vomiting for the past 4 days. Patient states she is unable to keep anything down. Patient states she is approximately 6 weeks . Patient states she was recently started on a steroid eyedrop for conjunctivitis. Patient states that her vomiting has caused some pain in her throat. Patient describes his pain as burning. Patient states she feels like she is having some bleeding from her throat. Patient denies any adriana hematemesis or coffee-ground emesis. Patient denies any melena or hematochezia. Patient denies any diarrhea. Patient denies any abdominal pain. Patient denies any abnormal vaginal bleeding or discharge. Physical Examination: Vital signs are stable. Patient is afebrile. Patient is in no acute distress. Oral mucosa is pink and moist. Neck is supple. Trachea is midline. There is no JVD noted. Heart was regular rate and rhythm. Lungs are clear and equal bilaterally. Abdomen is soft. Bowel sounds are normal. There is no tenderness. There is no rebound or guarding noted. Skin is warm dry. Cranial nerves II through XII are intact. There are no focal motor or sensory deficits noted. Extremities are intact. There is no calf tenderness or edema. Test Results: CBC shows a mild leukocytosis of 14.1. Comprehensive metabolic profile was within normal limits. Urinalysis shows leukocyte esterase of 500 with 10-25 white blood cells. Emergency Department Course and Treatment: Patient was given IV fluids and Zofran here. Urine culture was obtained. Patient was given a prescription for Macrobid and Zofran. Patient was instructed to follow-up with her primary care physician and EQUIPMENT OPERATING ENGINEER in 5 to 7 days. Patient understood and was agreeable with the plan. All questions were answered. Disposition: Discharge home Impression: Urinary tract infection This note was generated with [employer] dictation software. It may contain incorrect words, spelling, and punctuation that were not noted in review of the chart prior to signing ED Disposition - Plan for ED Patient: Disposition: Home or Assisted Living Diagnosis: Urinary tract infection, Early stage of Instructions: Bladder Infection, Female (Adult) Prescriptions: Nitrofurantoin Macrocrystals [Macrobid] 100 mg PO Q12 #14 cap Prescription Printed Ondansetron [Zofran Odt] 4 mg PO Q8H PRN PRN #10 tab PRN Reason: Nausea Prescription Printed Referrals: Care Physician,No Primary [Primary Care Provider] - 5-7 Days
[2020-02-08 19:49] LABS: Absolute Lymphocyte Count 0.95 X10^3/uL (0.83-4.51); Absolute Neutrophil Count 12.1 X10^3/uL (2.0-7.7); Basophil# 0.02 X10^3/uL; Basophil% 0.1 % (0-1); Eosinophil# 0.14 X10^3/uL; Hematocrit 39.7 % (37-47); Hemoglobin 12.2 g/dL (12.0-15.0); Lymphocyte # 0.95 X10^3/ul (4.0); Lymphocyte % 6.7 % (19-41); Mean Corp Hgb Conc 30.7 g/dL (32-36); Mean Corpuscular Hgb 24.2 pg (27.0-32.0); Mean Corpuscular Volume 78.6 fL (81-99); Mean Platelet Vol. 9.9 fl (6.2-12.0); Monocyte# 0.86 X10^3/uL; Monocyte% 6.1 % (0-10); NRBC Flagged by Analyzer 0 % (0-5); Neutrophil # 12.05 X10^3/uL (2.7-7.7); Neutrophil % 85.5 % (47-70); Platelet Count 327 K/mm3 (150-450); RBC Distribution Width CV 14.8 % (11.6-14.6); RBC Distribution Width SD 41.8 fl (35.1-43.9); Red Blood Count 5.05 M/mm3 (4.2-5.4); White Blood Count 14.1 K/mm3 (4.4-11.0)
[2020-02-08 20:07] LABS: ALB/GLOB Ratio 0.9 RATIO (0.9-2.4); AST(SGOT) 13 U/L (15-37); Alanine Aminotransfer ALT/SGPT 29 U/L (13-56); Albumin, Serum 3.7 g/dL (3.2-5.0); Alkaline Phosphatase 111 U/L (45-117); Anion Gap 9 (5-15); BUN 14 mg/dL (7-18); BUN/Creat Ratio 22.1 RATIO (10-20); Calcium,Total 8.7 mg/dL (8.5-10.1); Chloride 106 mmol/L (98-107); Creatinine, Serum 0.63 mg/dL (0.55-1.02); EST Glomerular Filtration Rate 126 mL/min (>60); Est Glom Filt Rate - Afr Amer 153 mL/min (>60); Estimated Creatinine Clearance 112.66 ml/min; Globulin 4.2 g/dL (2.2-4.2); Glucose 100 mg/dL (74-106); Potassium 3.7 mmol/L (3.5-5.1); Protein, Total 7.9 g/dL (6.4-8.2); Sodium Level 138 mmol/L (136-145)
[2020-02-08 20:13] LABS: Red Blood Cells-Urine 0 SEEN /hpf (0-5)
[2020-02-08 20:19] LABS: Color, Urine Yellow (Yellow); Glucose, Dipstick Normal (Normal); Ketone-Dipstick 15 mg/dl (Negative); Leukocyte Esterase-Dipstick 500 /ul (Negative); Nitrite-Dipstick Negative (Negative); Occult Blood-Urine Negative /ul (Negative); Protein-Dipstick 30 mg/dl (Negative); Urine Clarity Cloudy (Clear); Urine Urobilinogen 1 mg/dl (Normal)
[2020-02-08 20:25] LABS: Urine Bilirubin Dipstick 1 mg/dL (Negative)
[2020-02-08 20:27] LABS: Mucous, Urine 1+ /hpf (<or=2+); Squamous Epithelial Cells - UA 0-5 SEEN /hpf (5-10)
[2020-02-08 20:28] LABS: White Blood Cells 10-25 SEEN /hpf (0-5)
[2020-02-08 20:30] LABS: Bacteria 1+ /hpf (None Seen)
[2020-02-08 20:58] VITALS: RESP 18; O2SAT 99
== END 2020-02-08 21:05 | disposition home or self-care (01) ==
PROVIDERS: Emergency Provider Emergency Medicine
DX: O23.41 Unspecified infection of urinary tract in pregnancy, first trimester (principal); O26.891 Other specified pregnancy related conditions, first trimester; R51 Headache; Z3A.01 Less than 8 weeks gestation of pregnancy
CPT/HCPCS: 80053; 81001; 85025; 96361; 96374; 99283; J7030; J2405

== ENCOUNTER 2023-11-12 07:56 | Emergency (ER) | payer MEDICAID, SELFPAY ==
[2023-11-12 07:57] VITALS: BP 130/96; PULSE 116; RESP 16; TEMP 36.6; O2SAT 96; BMI 28.9
--- NOTE | 2023-11-12 08:24 | EDS_ITS ---
HPI History of Present Illness Chief Complaint: Chest Pain Informant: patient Narrative Narrative: Patient is a 23-year-old female presenting with chest pain. Patient states she woke up at 530 this morning because she was having shooting pains in her chest on the right side of her chest that faded to a dull ache. She notes she has had intermittent episodes of this pain since. It radiates to her left shoulder. She was at work and she went to the nurses office and checked her blood pressure. It was 185/103 and her heart rate is 101. Patient notes she had another shooting episode of pain in triage here. She denies any history of high blood pressure. Does have remote history of SVT but had an ablation 2010. Did have preeclampsia and was on blood pressure medicine for couple weeks after her last but no other issues with high blood pressure. Is not currently denies any concern for . Denies any swelling of her legs. Notes that a week and half ago she had a dry cough that since resolved. Denies a history of DVT or PE. Notes that she does get nauseous from time to time but currently denies any nausea. She states she has poor eating habits while at work which contributes to that. In addition she states that she has for for migraines. She currently is not having a migraine but if she has a mild headache on her bilateral temples. PFSH PFSH Medical History no medical history Home Medications bacitracin 500 unit/gram eye ointment 1 EACH EYE BID 02/08/20 [History Last Taken Unknown] nitrofurantoin monohydrate/macrocrystals 100 mg capsule 100 mg PO Q12 #14 caps 02/08/20 [Rx Last Taken Unknown] ondansetron 4 mg disintegrating tablet 4 mg PO Q8H PRN PRN Nausea #10 tabs 02/08/20 [Rx Last Taken Unknown] Allergy/AdvReac Type Severity Reaction Status Date / Time diphenhydramine Allergy CHILDHOOD Verified 11/12/23 07:57 [From Benadryl] ALLERGY Penicillins [PCN] Allergy CHILDHOOD Verified 11/12/23 07:57 ALLERGY Surgical History no surgical history Social History Smoking Status: Never smoker ROS ROS ED Constitutional Constitutional ED: Denies chills, fever(s) or sweats Cardiovascular Cardiovascular: Reports chest pain; Denies palpitations Respiratory/Chest Respiratory/Chest: Denies cough, dyspnea or dyspnea on exertion Gastrointestinal Gastrointestinal: Denies abdominal pain, nausea or vomiting Musculoskeletal Musculoskeletal: Denies arthralgias or myalgias Integumentary Denies rash Neurologic Neurologic: Denies headache(s) Psychiatric Psychiatric: Reports anxiety Hematologic/Lymphatic Hematologic/Lymphatic: Denies easy bleeding or easy bruising EXAM Physical Exam Const Vital Signs: 11/12/23 07:57 11/12/23 08:41 11/12/23 10:45 Temperature 97.8 F Temperature Source Temporal Pulse Rate 116 H 81 Respiratory Rate 16 13 Respiratory Effort Blood Pressure 130/96 H 121/72 H Blood Pressure Mean 107 88 Pulse Ox 96 98 Oxygen Delivery Method Room Air Room Air Room Air 11/12/23 10:45 Temperature Temperature Source Pulse Rate Respiratory Rate Respiratory Effort Normal Non-Labored Blood Pressure Blood Pressure Mean Pulse Ox Oxygen Delivery Method Positive well nourished and well developed General Appearance ED: well developed and NAD HEENT Reports moist mucous membranes normocephalic and atraumatic Eyes PERRL and EOMs intact bilaterally Neck supple and no JVD Chest Wall inspection of chest normal and palpation of chest normal Chest Narrative: Very mild tenderness palpation of the right anterior chest wall. No crepitus appreciated. Resp normal respiratory effort and clear to auscultation bilaterally Cardio regular rhythm Rate: tachycardic Peripheral Pulses: radial pulses present GI non-distended Neuro oriented x3 Sensorium / Orientation: awake and alert Motor Exam: Negative for general weakness Psych mental status grossly normal Mood & Affect: anxious and tearful Skin no rashes or lesions noted and no wounds Heart Score History: Slightly/Non-Suspicious ECG: Normal Age: </= 45 years Risk Factors: No Risk Factors Troponin: </= Normal Limit Score: 0 MDM MDM MDM Narrative Medical decision making narrative: Patient evaluated for intermittent episodes of sharp shooting chest pain that started this morning. Subsequently had high blood pressure when she checked it was tachycardic. Upon arrival patient is mildly hypertensive and tachycardic. PERC positive because of heart rate. D-dimer is obtained to rule out PE. Differential also includes pneumothorax, pneumonia, ACS and pericarditis. EKG shows sinus tachycardia with no strain pattern. Delta high since he troponin is 4 and 5 respectively so low suspicion for ACS or acute heart stress. CBC and BMP largely unremarkable. TSH normal at 1.05 so I do not think this is thyroid storm as a cause of her symptoms. Urine test is negative. D-dimer is slightly elevated at 0.50 and we will obtain a CTA. This is negative for any acute process. While in the ER patient is complaining of an episode of nausea and an episode of headache. Is given Zofran and then Toradol for the symptoms. Repeat evaluation blood pressure is normal and so is her heart rate. Vital signs are completely normalized and her symptoms have improved. She would like to return to work. Does not have a primary care doctor she will be given referral to 1. Counseled that the exact cause of her symptoms or not clear however there is not appear to be a medical or surgical emergency going on. She is comfortable with this. 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 Can take Tylenol or ibuprofen as needed for pain. Given return precautions. Discharged home in stable and improved condition. Lab Data Attestation: I reviewed the patient's lab results. Labs: Laboratory Results - last 24 hr 11/12/23 11/12/23 11/12/23 08:30 08:45 10:05 WBC 7.8 RBC 4.99 Hgb 13.9 Hct 43.2 MCV 86.6 MCH 27.9 MCHC 32.2 RDW Std Deviation 39.4 RDW Coeff of Jessica 12.5 Plt Count 313 MPV 10.8 Immature Gran % (Auto) 0.300 Neut % (Auto) 70.9 H Lymph % (Auto) 18.6 L Ray % (Auto) 6.4 Eos % (Auto) 3.0 Baso % (Auto) 0.8 Absolute Neuts (auto) 5.5 Absolute Lymphs (auto) 1.44 Nucleated RBC % 0 D-Dimer Quant (PE/DVT) 0.50 H Sodium 141 Potassium 4.0 Chloride 109 H Carbon Dioxide 25.0 Anion Gap 7 BUN 11 Creatinine 0.71 Estim Creat Clear Calc 87.76 Est GFR (MDRD) Af Amer 130 Est GFR (MDRD) Non-Af 107 BUN/Creatinine Ratio 15.5 Glucose 104 Calcium 9.7 Troponin I High Sens 4 5 TSH 1.05 Urine Test Negative Radiography Diagnostic Testing: Clinical Impression(s) from Imaging Studies Chest X-Ray 11/12/23 08:40 IMPRESSION: Normal x-ray examination of the chest. Electronically Signed: Magen Manzanares MD at 9:24 EST , Chest CTA 11/12/23 09:33 IMPRESSION: Normal CTA chest examination, without a demonstrated pulmonary embolism or arterial dissection. Electronically Signed: Magen Manzanares MD at 10:14 EST , Rhythm Strip Rhythm Strip: Sinus Tach Rate: 105 Ectopy: None EKG Initial EKG: Attestation: I personally reviewed and interpreted this EKG as follows: Interpretation: Sinus Tachycardia Comments: Sinus tachycardia at a rate of 105 bpm Normal axis Normal intervals Normal ST segments No significant change. Prior EKG on 12/05/2019. At that time heart rate was 100 bpm Prior EKG tracings: available for review Prior: Unchanged Discharge Plan Triage Chief Complaint: Chest Pain ED Provider: Nory Peterson Dx/Rx/DC Orders Clinical Impression: Chest pain Instructions: ED Chest Pain, Uncertain Cause Prescriptions: No Action bacitracin 500 unit/gram ointment 1 EACH EYE BID Patient Comments: 1 application in right eye twice a day ondansetron 4 MG tablet 4 mg PO Q8H PRN PRN (Reason: Nausea) Qty: 10 0RF nitrofurantoin monohyd/m-cryst 100 MG capsule 100 mg PO Q12 Qty: 14 0RF Stand Alone Forms: Work / School Excuse Primary Care Provider: Care Physician,No Primary Referrals: Kathi Martin MD [Med Staff - Stretch Machine Operator] - As soon as possible Care Physician,No Primary [Primary Care Provider] - Disposition Disposition: Home, Self Care
--- NOTE | 2023-11-12 08:30 | EKG12_ITS ---
Test Reason : CHEST PAIN Blood Pressure : / mmHG Vent. Rate : 105 BPM Atrial Rate : 105 BPM P-R Int : 160 ms QRS Dur : 088 ms QT Int : 330 ms P-R-T Axes : 074 087 045 degrees QTc Int : 436 ms Sinus tachycardia Otherwise normal ECG Confirmed by VALENTIN CORTÉS, BHAVIK ([id number]), market editor GEORGE HURTADO ([id number]) on 11/13/2023 1:34:17 PM Referred By: KALEN Confirmed By:BHAVIK HANSON MD
--- NOTE | 2023-11-12 08:40 | RAD_ITS ---
STUDY: X-RAY CHEST REASON FOR EXAM: Female, 23 years old. Chest pain TECHNIQUE: Single AP portable view of the chest. COMPARISON: Comparison is made with prior study dated December 06, 2019. FINDINGS: EKG electrodes are seen. The lungs are clear and expanded. There is no demonstrated pleural abnormality. Normal size heart. Normal mediastinum and claude. Normal visualized pulmonary arteries. Normal visualized aortic arch and descending thoracic aorta. Normal visualized thoracic spine. Normal visualized ribs, clavicles, and shoulders. There is no demonstrated abnormality of the visualized soft tissue structures of the upper abdomen. RAD/Chest 1 View (Portable) IMPRESSION: Normal x-ray examination of the chest. Electronically Signed: Magen Manzanares MD at 9:24 EST ,
[2023-11-12 08:45] LABS: Absolute Lymphocyte Count 1.44 X10^3/uL (0.83-4.51); Absolute Neutrophil Count 5.5 X10^3/uL (2.0-7.7); Basophil# 0.06 X10^3/uL; Basophil% 0.8 % (0-1); Eosinophil# 0.23 X10^3/uL; Hematocrit 43.2 % (37-47); Hemoglobin 13.9 g/dL (12.0-15.0); Lymphocyte # 1.44 X10^3/ul (0.83-4.51); Lymphocyte % 18.6 % (19-41); Mean Corp Hgb Conc 32.2 g/dL (32-36); Mean Corpuscular Hgb 27.9 pg (27.0-32.0); Mean Corpuscular Volume 86.6 fL (81-99); Mean Platelet Vol. 10.8 fl (6.2-12.0); Monocyte% 6.4 % (0-10); NRBC Flagged by Analyzer 0 % (0-5); Neutrophil # 5.51 X10^3/uL (2.7-7.7); Neutrophil % 70.9 % (47-70); Platelet Count 313 K/mm3 (150-450); RBC Distribution Width CV 12.5 % (11.6-14.6); RBC Distribution Width SD 39.4 fl (35.1-43.9); Red Blood Count 4.99 M/mm3 (4.2-5.4); White Blood Count 7.8 K/mm3 (4.4-11.0)
[2023-11-12] MEDS: Ondansetron 4 MG/2 ML Vial IV (08:52)
[2023-11-12 08:59] LABS: Internal QC Validated? YES +Cl - CLEAR BKGD
[2023-11-12 09:00] LABS: Pregnancy, Urine Negative Negative; Record Kit Lot#,Urine Preg 667200
[2023-11-12 09:10] LABS: Anion Gap 7 (5-15); BUN 11 mg/dL (7-18); BUN/Creat Ratio 15.5 RATIO (10-20); Calcium,Total 9.7 mg/dL (8.5-10.1); Chloride 109 mmol/L (98-107); Creatinine, Serum 0.71 mg/dL (0.55-1.02); EST Glomerular Filtration Rate 107 mL/min (>60); Est Glom Filt Rate - Afr Amer 130 mL/min (>60); Estimated Creatinine Clearance 87.76 ml/min; Glucose 104 mg/dL (74-106); Sodium Level 141 mmol/L (136-145); Thyroid Stim Hormone (TSH) 1.05 uIU/mL (0.358-3.74); Troponin-I HS (w/2H Reflex) 4 pg/mL (3.0-54.0)
--- NOTE | 2023-11-12 09:33 | CT_ITS ---
STUDY: CTA CHEST REASON FOR EXAM: Female, 23 years old. Chest pain, elevated dimer RADIATION DOSAGE (If Supplied By Facility): CTDIvol = ( 10.51 ) mGy, DLP = ( 304.73 ) mGycm TECHNIQUE: The examination was performed with the intravenous administration of IV 100mL Isovue-370. Post-processing of the angiographic images was performed, with multiplanar reformation and 3D reconstruction. Individualized dose optimization techniques were used for this CT. COMPARISON: Comparison is made with prior chest radiograph done earlier in the day. FINDINGS: Normal enhancement of the main pulmonary artery and right and left pulmonary arteries. Normal enhancement of the bilateral peripheral pulmonary arteries. There is no demonstrated pulmonary embolism. Normal thoracic aorta and visualized great vessels. There is no demonstrated aortic dissection. Normal heart and pericardium. Normal mediastinum. Normal hilar regions. Normal visualized trachea and bronchi. The lungs are well expanded. Normal pulmonary parenchyma. Normal pleura. Normal chest wall structures. Normal osseous structures. Small gallstones are seen in the gallbladder lumen. CT/CTA Chest W/WO Contrast IMPRESSION: Normal CTA chest examination, without a demonstrated pulmonary embolism or arterial dissection. Electronically Signed: Magen Manzanares MD at 10:14 [facility] ,
[2023-11-12] MEDS: Ketorolac 15 MG/ML Vial IV (09:56)
[2023-11-12 10:42] LABS: Reflex Troponin-HS? (from REC) Y
[2023-11-12 10:45] VITALS: BP 121/72; PULSE 81; RESP 13; O2SAT 98
[2023-11-12 11:01] LABS: Troponin-I HS 5 pg/mL (3.0-54.0)
[2023-11-12 11:39] VITALS: BP 127/79; PULSE 89; RESP 15; O2SAT 98
== END 2023-11-12 11:40 | disposition home or self-care (01) ==
PROVIDERS: Emergency Provider Emergency Medicine; Visit Provider Emergency Medicine
DX: R07.9 Chest pain, unspecified (principal); R51.9 Headache, unspecified; R11.0 Nausea; R79.89 Other specified abnormal findings of blood chemistry
CPT/HCPCS: 71045; 71275; 80048; 81025; 84443; 84484; 85025; 85379; 93005; 96374; 96375; 99284; Q9967; A4216; J2405

== ENCOUNTER 2023-12-07 09:28 | Emergency (ER) | payer MEDICAID, SELFPAY ==
[2023-12-07 09:29] VITALS: BP 150/86; PULSE 97; RESP 16; TEMP 35.6; O2SAT 97; BMI 27.7
--- NOTE | 2023-12-07 09:43 | EDS_ITS ---
HPI History of Present Illness Chief Complaint: Upper Extremity Injury Informant: patient Occured/Mechanism Mechanism/Context: Yes fall Narrative Narrative: Patient presents secondary to right wrist and hand injury. She was going down some steps last night and slipped on the ice injuring her right hand and wrist. She is right-hand dominant. She denies striking her head or any other injury. [facility] Medical History (Updated 12/07/23 @ 10:[address] Guerda Shaikh MD) Asthma SVT (supraventricular tachycardia) Home Medications bacitracin 500 unit/gram eye ointment 1 EACH EYE BID 02/08/20 [History Last Taken Unknown] nitrofurantoin monohydrate/macrocrystals 100 mg capsule 100 mg PO Q12 #14 caps 02/08/20 [Rx Last Taken Unknown] ondansetron 4 mg disintegrating tablet 4 mg PO Q8H PRN PRN Nausea #10 tabs 02/08/20 [Rx Last Taken Unknown] Allergy/AdvReac Type Severity Reaction Status Date / Time diphenhydramine Allergy CHILDHOOD Verified 11/12/23 07:57 [From Benadryl] ALLERGY Penicillins [PCN] Allergy CHILDHOOD Verified 11/12/23 07:57 ALLERGY Social History Smoking Status: Never smoker ROS ROS ED Constitutional Constitutional ED: Denies chills or fever(s) Eyes Eyes: Denies discharge from eye(s) ENT ENT ED: Denies discharge from eye(s), rhinorrhea or sore throat Cardiovascular Cardiovascular: Denies chest pain or palpitations Respiratory/Chest Respiratory/Chest: Denies cough or dyspnea Gastrointestinal Gastrointestinal: Denies abdominal pain, nausea or vomiting Musculoskeletal Musculoskeletal: Reports extremity pain; Denies back pain or neck pain Integumentary Denies Abrasions or rash Neurologic Neurologic: Denies headache(s) or weakness Psychiatric Psychiatric: Denies anxiety or depression Allergic/Immunologic Allergic/Immunologic ED: Denies lip swelling or urticaria EXAM Physical Exam Const Vital Signs: 12/07/23 09:29 Temperature 96.1 F L Temperature Source Temporal Pulse Rate 97 Respiratory Rate 16 Blood Pressure 150/86 H Blood Pressure Mean 107 Pulse Ox 97 Oxygen Delivery Method Room Air Positive well nourished and well developed General Appearance ED: well developed Eyes EOMs intact bilaterally Chest Wall inspection of chest normal and palpation of chest normal Resp normal respiratory effort and clear to auscultation bilaterally Cardio regular rate and regular rhythm GI non-tender Palpation: soft Extremity Extremity Narrative: Early ecchymosis noted to the dorsum of the right hand along the third and fourth metacarpal bones. Tenderness over the wrist. Good range of motion. No tenderness at the elbow or shoulder. Good cap refill and sensation. Neuro oriented x3, moves all extremities, no focal motor deficits and no sensory deficits noted Psych mental status grossly normal Skin Lesions: no lesions Rashes: no rashes MDM MDM MDM Narrative Medical decision making narrative: X-rays of the right wrist will be obtained to evaluate for potential fracture, sprain, strain. Treatment and Re-Evaluation Narrative: Right wrist x-rays per my interpretation show no evidence of acute fracture. Radiology interpretation reviewed and agrees. Patient was placed in an Lang wrap. She can use Tylenol or ibuprofen as needed for pain. Discharge Plan Triage Chief Complaint: Upper Extremity Injury ED Provider: Guerda Shaikh Dx/Rx/DC Orders Clinical Impression: Fall, Right wrist sprain Instructions: ED Wrist Sprain Prescriptions: No Action bacitracin 500 unit/gram ointment 1 EACH EYE BID Patient Comments: 1 application in right eye twice a day ondansetron 4 MG tablet 4 mg PO Q8H PRN PRN (Reason: Nausea) Qty: 10 0RF nitrofurantoin monohyd/m-cryst 100 MG capsule 100 mg PO Q12 Qty: 14 0RF Primary Care Provider: Care Physician,No Primary Referrals: Alejandra Chappell DO [Med Staff - Active Staff] - As Needed Care Physician,No Primary [Primary Care Provider] - Disposition Disposition: Home, Self Care
--- NOTE | 2023-12-07 09:49 | RAD_ITS ---
STUDY: X-RAY - RIGHT WRIST REASON FOR EXAM: Female, 23 years old. Injury -- please include metacarpals. TECHNIQUE: 3 views of the right wrist were obtained. COMPARISON: None. FINDINGS: Normal visualized distal radius and ulna. Normal radiocarpal articulation. Normal distal radioulnar articulation. Normal carpal bones. Normal carpal articulations. Normal carpometacarpal articulation of the thumb. Normal second through fifth carpometacarpal articulations. Normal visualized metacarpal bones. The soft tissue structures are unremarkable. There is no demonstrated acute fracture. RAD/Wrist min 3 Views IMPRESSION: Normal x-ray examination of the right wrist. Electronically Signed: Ken Barber MD at 10:02 [facility] ,
--- OUTSIDE RECORDS SUMMARY | 2023-12-07 10:23 | XMS RPT_ITS | CCD ---
Author Name Unknown Address [facility] [place] [address] Organization [facility] Care Team Providers Care Outside Parts Salesman Name Role Phone BAILEY STAUFFER Attending Unavailable FINN MATHIS Referring Unavailable ELHAM CEDEÑO~[id number] TERRELL Pr imary Care Unavailable FINN MATHIS Attending Unavailable ELHAM CEDEÑO~[phone] TERRELL Pr imary Care Unavailable ELHAM CEDEÑO~[id number] TERRELL At tending Unavailable ELHAM CEDEÑO~[phone] TERRELL Pr imary Care Unavailable Allergies Allergy Classification Reported Allergen(s) Allergy Type Date of Onset Reaction(s) Facility (1 source) diphenhydrAMINE / Zinc acetate; Translations: [DIPHENHYDRAMINE-ZIN C ACETATE] Drug Allergy [facility] Repository Problems Problem Classification Problem Date Documented Date Episodic/Chronic Biliary tract disease (2 sources) Calculus of gallbladder without cholecystitis without obstruction; Translations: [Other cholelithiasis without obstruction] Onset: 10-01-2022 Episodic Other and delivery including normal (1 source) Encounter for supervision of normal , unspecified, second trimester; Translations: [Encounter for supervision of normal , unspecified, second trimester] Onset: 10-07-2022 Episodic Results Test Name Value Interpretation Reference Range Facil ity Encounters Encounter Date Encounter Type Care Provider Facility Start: 04-22-2023 ambulatory ELHAM~[id number] TERRELL TEJADA [facility] Start: 10-07-2022 End: 10-07-2022 ambulatory BAILYE [facility] Start: 10-01-2022 ambulatory FINN MATHIS [facility] Payers Date Payer Category Payer Policy ID Unknown [id number] Progress note 04-08-2021 Note Date & Type Note Facility 04-08-2021 Note HNO ID: [id number] Author: Nina Miles LPN Service: ? Author Type: ? Type: Progress Notes Filed: 04/08/2021 12:42 PM Note Text: Pt seen in office today for Depo Provera Injection. Patient brought own med. BP 120/60 Ht 5' .5 (1.54m) Wt 133 lb 3.2 oz (60.4kg) LMP 12/21/2019 BMI 25.58 kg/(m2). Vital signs reviewed. Pt advised when to return for next injection and/or yearly pap. Tolerated injection well? YesPatient identified by name and date of . Phyllis Castle is here for a Depo Provera injection. Patient brought medication. Date last injected: 01/21/21 Depo-Provera, 150 mg, administered IM left upper quadrant gluteus, Lot # [id number], expiration date 01/20/23. Depo-Provera was given without incident. Date of last menses: Patient's last menstrual period was 12/21/2019. Irregular bleeding - No Menses ceased - Yes STD prevention discussed: Yes Patient instructed to return to clinic on 12 weeks +/- 5 days. [email or web address] Provider Megha Beatty CNP was present in office at time of injection and also verified medication. Nina Miles LPN . See medication note for lot#, exp date. [facility] Progress note 04-08-2021 Note Date & Type Note Facility 04-08-2021 Note HNO ID: [id number] Author: Megha Beatty APRN.SAYRA Service: ? Author Type: Nurse Practitioner Type: Progress Notes Filed: 04/08/2021 12:29 PM Note Text: CONTRACEPTION Phyllis Caslte is a 21 year old who presents today for contraception. Patient has been using Depo-Provera since the of her last child. At this time she would like to continue with Depo. She states that she never had a Pap done approximately September 2020. Patient will sign medical release form to obtain previous records. Patient's last menstrual period was 12/21/2019.. SUBJECTIVE Sexually active: Yes Smoking Yes 1 pack/day Last PAP Relevant Past Medical History: No relevant past medical history OB History T0 L2 SAB0 TAB0 Ectopic0 Multiple0 Live Births1 PAST MEDICAL HISTORY Diagnosis Date - Anemia - Asthma - Congenital heart defect no surgical intervention - depression - Generalized anxiety disorder - History of pre-eclampsia in prior , currently - Hypertension - Intermittent explosive disorder in adult - depression - hemorrhage - SVT (supraventricular tachycardia) (HCC) Had ablation PAST SURGICAL HISTORY Procedure Laterality Date - PAST SURGICAL HISTORY OF heart ablation x2 - PAST SURGICAL HISTORY OF right eye FAMILY HISTORY Problem Relation Age of Onset - Hypertension Mother - Psychiatry Mother Depression - other (hypoglycemia) Mother - other (Narcolepsy) Father - No Known Problems Brother - Cancer Maternal Grandmother brain and lung cancer - Hypertension Maternal Grandfather - Heart Maternal Grandfather - Cataract Maternal Grandfather - Stroke Maternal Grandfather - other (Hypoglycemia) Maternal Grandfather - Alcohol/Drug Paternal Grandmother - other (Sclerosis of liver) Paternal Grandmother - Heart Paternal Grandfather - Cancer Paternal Grandfather throat cancer - No Known Problems Son SOCIAL HISTORY Social History Tobacco Use - Smoking status: Current Every Day Smoker Years: 1.00 Last attempt to quit: 08/24/2017 Years since quittin.6 - Smokeless tobacco: Never Used Vaping Use - Vaping Use: Never used Substance Use Topics - Alcohol use: No - Drug use: No PAST SURGICAL HISTORY Procedure Laterality Date - PAST SURGICAL HISTORY OF heart ablation x2 - PAST SURGICAL HISTORY OF right eye Current Outpatient Medications Medication Sig - medroxyPROGESTERone (DEPO-PROVERA) 150 mg/mL Inject 1 mL intramuscularly every 10 weeks. - promethazine (PHENERGAN) 12.5 mg tablet Take 1 tablet by mouth every 6 hours as needed. (Patient not taking: Reported on 04/08/2021 ) - ondansetron (ZOFRAN) 8 mg tablet Take 8 mg by mouth every 8 hours as needed. (Patient not taking: Reported on 04/08/2021 ) - Mjjxvrhk-Fr-Atc-Fe-FA ( VITAMIN) tab Take 1 tablet by mouth. (Patient not taking: Reported on 04/08/2021 ) - ALBUTEROL (PROVENTIL, REFILL, INHALATION) Inhale as instructed. Current Facility-Administered Medications Medication Dose Route Frequency - [START ON 04/09/2021] medroxyPROGESTERone 150 mg injection (DEPO-PROVERA) 150 mg INTRAMUSCULAR every 10 weeks Allergies As of Date: 04/08/2021 Allergen Noted Reaction PEANUTS 09/24/2017 GI Upset and Other: See Comments BENADRYL [DIPHENHYDRAMINE HCL] 09/24/2017 Other: See Comments PENICILLINS 09/24/2017 Other: See Comments Fully Assessed 04/08/2021 OBJECTIVE: General Appearance: Well appearing, alert, in no acute distress, well-hydrated, well nourished. Skin: Color normal, No evidence of bleeding or bruising, No edema, Nails normal without clubbing Lungs: normal inspiratory effort ASSESSMENT/PLAN: 1. Encounter for surveillance of injectable contraceptive - ICD9: V25.49, ICD10: Z30.42 (primary diagnosis) 2. Personal history of contraception - ICD9: V15.7, ICD10: Z92.0 - MEDROXYPROGESTERONE 150 MG/ML INTRAMUSCULAR SYRINGE - MEDROXYPROGESTERONE 150 MG/ML INTRAMUSCULAR SYRINGE Megha Beatty APRN.CNP Medical Decision Making: Problems: Low: Acute, uncomplicated illness or injury Risk: Low: Low risk from testing/treatment Moderate: Drug management Medical Decision Making Level: 3 - Low [facility] Summary Purpose Family History No Family History Records FoundNo Family History Records FoundNo Family History Records FoundNo Family History Records Found Advance Directives No Advanced Directives Records FoundNo Advanced Directives Records FoundNo Advanced Directives Records FoundNo Advanced Directives Records Found Additional Source Comments INFORMATION SOURCE (unrecogn ized section and content) DATE CREATED AUTHOR AUTHOR'S ORGANIZ ATION 11/04/2021 [facility] DATE CREATED AUTHOR AUTHOR'S ORGANIZ ATION 12/26/2021 [facility] DATE CREATED AUTHOR AUTHOR'S ORGANIZ ATION 05/01/2023 [facility] FOR RECORDS PERTAINING TO PATIENTS WHO ARE OR HAVE BEEN ENROLLED IN A CHEMICAL DEPENDENCY/SUBSTANCEABUSE PROGRAM, SOME INFORMATION MAY BE OMITTED. This clinical summary was aggregated from multiple sources. Caution should be exercised in using it in the provision of clinical care. This summary normalizes information from multiple sources, and as a consequence, information in this document may materially change the coding, format and clinical context of patient data. In addition, data may be omitted in some cases. CLINICAL DECISIONS SHOULD BE BASED ON THE PRIMARY CLINICAL RECORDS. [facility], [facility]. provides no warranty or guarantee of the accuracy or completeness of information in this document.
== END 2023-12-07 10:23 | disposition home or self-care (01) ==
PROVIDERS: Emergency Provider Emergency Medicine; Visit Provider Emergency Medicine
DX: S63.91XA Sprain of unspecified part of right wrist and hand, initial encounter (principal); W00.1XXA Fall from stairs and steps due to ice and snow, initial encounter; J45.909 Unspecified asthma, uncomplicated
CPT/HCPCS: 73110; 99282

== ENCOUNTER 2024-01-28 16:34 | Emergency (ER) | payer MEDICAID, SELFPAY ==
[2024-01-28 16:35] VITALS: BP 145/94; PULSE 106; RESP 18; TEMP 36.2; O2SAT 96; BMI 28.5
[2024-01-28 17:16] LABS: Internal QC Validated? YES +Cl - CLEAR BKGD; Pregnancy, Serum, hCG Quali. NEGATIVE Negative
--- NOTE | 2024-01-28 17:39 | CT_ITS ---
STUDY: CT ABDOMEN AND PELVIS WITHOUT CONTRAST REASON FOR EXAM: Female, 23 years old. Left flank pain RADIATION DOSAGE (If Supplied By Facility): CTDIvol = ( 6.47 ) mGy, DLP = ( 323.36 ) mGycm TECHNIQUE: Transaxial images were obtained from the dome of the diaphragm to the symphysis pubis without oral contrast, and without intravenous contrast. Sagittal and coronal images were reconstructed. Individualized dose optimization techniques were used for this CT. COMPARISON: None. FINDINGS: The visualized lung bases are unremarkable. The visualized portions of the heart are within normal limits. There is hepatomegaly with diffuse hepatic enlargement. There is stone in the neck of the gallbladder. Normal spleen. Normal pancreas. Normal bilateral adrenal glands. There is a 0.2 cm stone in the right kidney. There is mild hydronephrosis and perinephric stranding of the left kidney. Normal visualized stomach. Normal small intestine. Normal colon. There is abundant stool. The appendix is visualized and appears normal. Normal abdominal aorta. Normal inferior vena cava. Normal retroperitoneum. Normal urinary bladder. Normal visualized uterus. There is no free fluid in the abdomen or pelvis. Normal abdominal wall. Normal osseous structures. CT/Abdomen/Pelvis without Cont IMPRESSION: Right renal stone. Hydronephrosis and perinephric stranding of the left kidney with possible recently passed stone versus pyelonephritis. Hepatomegaly. Stone in the neck of the gallbladder. No biliary dilation. Electronically Signed: Yannick Wong MD at 19:45 EST ,
--- NOTE | 2024-01-28 17:40 | EX.ED.DYSGE1 ---
HPI <LIDIA Atwood - Last Filed: 01/28/24 19:59> History of Present Illness Chief Complaint: Flank Pain Narrative Narrative: 23-year-old female states yesterday she had a bilateral low backache. Today the pain became focused in the left flank and is sharp and throbbing and radiating around to the left lower abdomen. She is urinating normally but at the end of voiding has burning pain. No hematuria. She is nauseous without vomiting. No fever or chills. No history of kidney stones. PFSH <LIDIA Atwood - Last Filed: 01/28/24 19:59> PFSH Medical History (Updated 01/28/24 @ 19:52 by LIDIA Atwood) Asthma SVT (supraventricular tachycardia) Home Medications hydrocodone-acetaminophen 5-325mg 5mg-325mg 1 tab PO Q6H PRN pain 3 days #12 tabs 01/28/24 [Rx Last Taken Unknown] ibuprofen 600 mg tablet 600 mg PO Q6H PRN PRN pain #20 TABLETS 01/28/24 [Rx Last Taken Unknown] ondansetron 4 mg disintegrating tablet 4 mg PO Q6H PRN nausea and vomiting #12 tabs 01/28/24 [Rx Last Taken Unknown] sulfamethoxazole 800 mg-trimethoprim 160 mg tablet (Bactrim DS) 1 tab PO BID 10 days #20 tabs 01/28/24 [Rx Last Taken Unknown] Allergy/AdvReac Type Severity Reaction Status Date / Time diphenhydramine Allergy CHILDHOOD Verified 01/28/24 16:35 [From Benadryl] ALLERGY Penicillins [PCN] Allergy CHILDHOOD Verified 01/28/24 16:35 ALLERGY Social History (Updated 01/28/24 @ 18:12 by Ayesha Davalos) household members: family Smoking Status: Never smoker ROS <LIDIA Atwood - Last Filed: 01/28/24 19:59> ROS ED ROS Narrative Constitutional: Negative for fever, chills, malaise. CVS: Negative for chest pain. Respiratory: Negative for shortness of breath. GI: Positive for abdominal pain, nausea. Negative for vomiting. : Positive for dysuria. EXAM <LIDIA Atwood - Last Filed: 01/28/24 19:59> Physical Exam Narrative Exam Narrative: CONST: Patient appears uncomfortable sitting in bed but nontoxic. EYES: Normal inspection. NECK: Normal inspection. RESP: No respiratory distress, CTAB. CVS: Regular rate and rhythm, no murmur, no gallop. ABD: Soft and nontender, no guarding or rebound, nondistended. Back: Normal inspection, left CVA tenderness. SKIN: Color normal, no rash, warm, dry, intact. EXTREMITIES: Normal appearance, no pedal edema. NEURO: Oriented x4. PSYCH: Normal affect. Const Vital Signs: 01/28/24 16:35 01/28/24 17:46 Temperature 97.2 F L Temperature Source Temporal Pulse Rate 106 H 102 H Respiratory Rate 18 18 Blood Pressure 145/94 H Blood Pressure Mean 111 Pulse Ox 96 98 Oxygen Delivery Method Room Air <Dr. Rob Queen DO - Last Filed: 01/28/24 20:21> Physical Exam Const Vital Signs: 01/28/24 16:35 01/28/24 17:46 Temperature 97.2 F L Temperature Source Temporal Pulse Rate 106 H 102 H Respiratory Rate 18 18 Blood Pressure 145/94 H Blood Pressure Mean 111 Pulse Ox 96 98 Oxygen Delivery Method Room Air MDM <LIDIA Atwood - Last Filed: 01/28/24 19:59> [facility] Narrative Medical decision making narrative: Differential: UTI, kidney stone, pyelonephritis Patient has left flank pain and dysuria. She appears uncomfortable but nontoxic. HR is 106 with otherwise stable vital signs. Abdomen soft and nontender. Positive left CVA tenderness. Labs show white count of 12.7, normal electrolytes and renal function. Urinalysis is consistent with UTI, test negative.CT shows left perinephric stranding and hydronephrosis with possible recently passed stone versus pyelonephritis. Patient was treated with IV fluids, Toradol, Zofran and Rocephin. She is feeling significantly improved and pain is adequately controlled. I prescribed Austin, ibuprofen, Zofran, and Bactrim. I discussed return precautions and she was discharged in stable condition. Lab Data Attestation: I reviewed the patient's lab results. Labs: Laboratory Results - last 24 hr 01/28/24 01/28/24 16:48 17:33 WBC 12.7 H RBC 4.87 Hgb 13.4 Hct 42.2 MCV 86.7 MCH 27.5 MCHC 31.8 L RDW Std Deviation 40.7 RDW Coeff of Jessica 12.9 Plt Count 359 MPV 11.3 Immature Gran % (Auto) 0.500 Neut % (Auto) 76.8 H Lymph % (Auto) 13.2 L [place] % (Auto) 7.3 Eos % (Auto) 1.8 Baso % (Auto) 0.4 Absolute Neuts (auto) 9.7 H Absolute Lymphs (auto) 1.67 Nucleated RBC % 0 Sodium 140 Potassium 3.8 Chloride 108 H Carbon Dioxide 27.0 Anion Gap 5 BUN 10 Creatinine 0.73 Estim Creat Clear Calc 100.91 Est GFR (MDRD) Af Amer 124 Est GFR (MDRD) Non-Af 103 BUN/Creatinine Ratio 13.6 Glucose 87 Calcium 9.4 Serum , Qual NEGATIVE Urine Color Yellow Urine Clarity Cloudy Urine pH 7.0 Ur Specific [place] 1.010 Urine Protein 100 H Urine Glucose (UA) Normal Urine Ketones Negative Urine Occult Blood 250 H Urine Nitrite Negative Urine Bilirubin Negative Urine Urobilinogen 1 H Ur Leukocyte Esterase 500 H Urine RBC > 100 SEEN Urine WBC >100 SEEN Ur Squamous Epith Cells 0-5 SEEN Urine Bacteria 1+ Urine Mucus 0 SEEN Radiography Diagnostic Testing: Clinical Impression(s) from Imaging Studies Abdomen/Pelvis CT 01/28/24 17:39 IMPRESSION: Right renal stone. Hydronephrosis and perinephric stranding of the left kidney with possible recently passed stone versus pyelonephritis. Hepatomegaly. Stone in the neck of the gallbladder. No biliary dilation. Electronically Signed: Yannick Wong MD at 19:45 EST , <Dr. Rob Queen, DO - Last Filed: 01/28/24 20:21> [facility] Lab Data Labs: Laboratory Results - last 24 hr 01/28/24 01/28/24 16:48 17:33 WBC 12.7 H RBC 4.87 Hgb 13.4 Hct 42.2 MCV 86.7 MCH 27.5 MCHC 31.8 L RDW Std Deviation 40.7 RDW Coeff of Jessica 12.9 Plt Count 359 MPV 11.3 Immature Gran % (Auto) 0.500 Neut % (Auto) 76.8 H Lymph % (Auto) 13.2 L [place] % (Auto) 7.3 Eos % (Auto) 1.8 Baso % (Auto) 0.4 Absolute Neuts (auto) 9.7 H Absolute Lymphs (auto) 1.67 Nucleated RBC % 0 Sodium 140 Potassium 3.8 Chloride 108 H Carbon Dioxide 27.0 Anion Gap 5 BUN 10 Creatinine 0.73 Estim Creat Clear Calc 100.91 Est GFR (MDRD) Af Amer 124 Est GFR (MDRD) Non-Af 103 BUN/Creatinine Ratio 13.6 Glucose 87 Calcium 9.4 Serum , Qual NEGATIVE Urine Color Yellow Urine Clarity Cloudy Urine pH 7.0 Ur Specific [place] 1.010 Urine Protein 100 H Urine Glucose (UA) Normal Urine Ketones Negative Urine Occult Blood 250 H Urine Nitrite Negative Urine Bilirubin Negative Urine Urobilinogen 1 H Ur Leukocyte Esterase 500 H Urine RBC > 100 SEEN Urine WBC >100 SEEN Ur Squamous Epith Cells 0-5 SEEN Urine Bacteria 1+ Urine Mucus 0 SEEN Radiography Diagnostic Testing: Clinical Impression(s) from Imaging Studies Abdomen/Pelvis CT 01/28/24 17:39 IMPRESSION: Right renal stone. Hydronephrosis and perinephric stranding of the left kidney with possible recently passed stone versus pyelonephritis. Hepatomegaly. Stone in the neck of the gallbladder. No biliary dilation. Electronically Signed: Yannick Wong MD at 19:45 EST , Treatment and Re-Evaluation :: I have personally performed a face to face assessment of the patient and have reviewed the ZAN Note. I performed a substantive portion of the visit including all aspects of the following. My leonard findings include: History: Patient presents with left flank pain that began yesterday. Patient describes her pain as sharp. Patient states it is gradually getting worse. Patient states nothing makes it better nothing makes it worse. Patient admits to some nausea but denies any vomiting. Patient admits to some dysuria and possible hematuria. Patient also admits to a mild headache. Exam: Vital signs are stable except for mild tachycardia of 106. Patient is afebrile. Patient is in no acute distress. Oral mucosa is pink and moist. Neck is supple. Trachea is midline. There is no JVD. Heart was regular and tachycardic. Lungs are clear and equal bilaterally. Abdomen is soft. Bowel sounds are normal. There are some mild left lower quadrant tenderness. There is no rebound or guarding noted. There is some mild left CVA tenderness. Cranial nerves II through XII are intact. There are no focal motor or sensory deficits noted. Medical Decision Making: Differential diagnosis includes ureteral calculus, pyelonephritis, urinary tract infection, diverticulitis, ectopic , and musculoskeletal pain. CT scan of the abdomen pelvis will be obtained to assess for ureteral calculus, pyelonephritis, and diverticulitis. CBC will be obtained to assess for leukocytosis and anemia. Basic metabolic profile will be obtained to assess for electrolyte abnormality and renal function. Urinalysis will be obtained to assess for urinary tract infection and hematuria. Serum hCG will be obtained to assess for . CT scan of the abdomen pelvis was obtained. There is hydronephrosis and perinephric stranding of the left kidney with recently passed stone or pyelonephritis. There is also a right renal stone. This was interpreted by the radiologist and was also independently reviewed by myself. CBC was reviewed. There is a mild leukocytosis of 12.7. The remainder is within normal limits. Basic metabolic profile was reviewed and was within normal limits. Serum hCG was reviewed and was negative. Urinalysis was reviewed. Leukocyte esterase was 500 with greater than 100 white blood cells and greater than 100 red blood cells. There is 1+ bacteria. Urine culture was ordered. Patient was given a dose of Rocephin here. Patient was given Toradol and Zofran. Patient was given a dose of Austin prior to discharge. Patient was given a prescription for Bactrim, Austin, and Zofran. Patient was instructed to follow-up with her primary care physician in 5 to 7 days. Patient understood and was agreeable with the plan. All questions were answered. Discharge Plan Triage Chief Complaint: Flank Pain ED Midlevel Provider: Alejandra Mcfadden ED Provider: Rob Queen Dx/Rx/DC Orders Clinical Impression: Pyelonephritis of left kidney Instructions: ED Pyelonephritis, Female (Adult) Prescriptions: New hydrocodone-acetaminophen 5-325 mg tablet 1 tab PO Q6H PRN (Reason: pain) 3 Days Qty: 12 0RF ondansetron 4 mg tablet,disintegrating 4 mg PO Q6H PRN (Reason: nausea and vomiting) Qty: 12 0RF sulfamethoxazole-trimethoprim [Bactrim DS] 800-160 mg tablet 1 tab PO BID 10 Days Qty: 20 0RF ibuprofen 600 mg tablet 600 mg PO Q6H PRN PRN (Reason: pain) Qty: 20 0RF Primary Care Provider: Care Physician,No Primary Referrals: Care Physician,No Primary [Primary Care Provider] - Activity Restrictions/Additional Instructions: Your CAT scan shows you may have recently passed a kidney stone and there is a left-sided kidney infection. Take the antibiotics as prescribed until gone. Use Austin as needed for pain. You can also take ibuprofen 600 mg every 6 hours. Return to ER if symptoms worsen. Disposition Disposition: Home, Self Care
[2024-01-28 17:46] VITALS: PULSE 102; RESP 18; O2SAT 98
[2024-01-28] MEDS: 0.9% Normal Saline (1000mL) 1,000 ML 999 ML IV (17:49)
[2024-01-28] MEDS: Ondansetron 4 MG/2 ML Vial IV ×2 (17:49→20:15)
[2024-01-28] MEDS: Ketorolac 30 MG/ML Syringe IV (17:49)
[2024-01-28 17:55] LABS: Absolute Lymphocyte Count 1.67 X10^3/uL (0.83-4.51); Absolute Neutrophil Count 9.7 X10^3/uL (2.0-7.7); Basophil# 0.05 X10^3/uL; Basophil% 0.4 % (0-1); Eosinophil# 0.23 X10^3/uL; Eosinophils% 1.8 % (0-5); Hematocrit 42.2 % (37-47); Hemoglobin 13.4 g/dL (12.0-15.0); Lymphocyte # 1.67 X10^3/ul (0.83-4.51); Lymphocyte % 13.2 % (19-41); Mean Corp Hgb Conc 31.8 g/dL (32-36); Mean Corpuscular Hgb 27.5 pg (27.0-32.0); Mean Corpuscular Volume 86.7 fL (81-99); Mean Platelet Vol. 11.3 fl (6.2-12.0); Monocyte# 0.93 X10^3/uL; Monocyte% 7.3 % (0-10); NRBC Flagged by Analyzer 0 % (0-5); Neutrophil # 9.73 X10^3/uL (2.7-7.7); Neutrophil % 76.8 % (47-70); Platelet Count 359 K/mm3 (150-450); RBC Distribution Width CV 12.9 % (11.6-14.6); RBC Distribution Width SD 40.7 fl (35.1-43.9); Red Blood Count 4.87 M/mm3 (4.2-5.4); White Blood Count 12.7 K/mm3 (4.4-11.0)
[2024-01-28 17:58] LABS: Mucous, Urine 0 SEEN /hpf (<or=2+)
[2024-01-28 18:05] LABS: Color, Urine Yellow (Yellow); Glucose, Dipstick Normal (Normal); Ketone-Dipstick Negative (Negative); Leukocyte Esterase-Dipstick 500 /ul (Negative); Nitrite-Dipstick Negative (Negative); Occult Blood-Urine 250 /ul (Negative); Protein-Dipstick 100 mg/dl (Negative); Urine Bilirubin Dipstick Negative (Negative); Urine Clarity Cloudy (Clear); Urine Urobilinogen 1 mg/dl (Normal)
[2024-01-28 18:06] LABS: Anion Gap 5 (5-15); BUN 10 mg/dL (7-18); BUN/Creat Ratio 13.6 RATIO (10-20); Calcium,Total 9.4 mg/dL (8.5-10.1); Chloride 108 mmol/L (98-107); Creatinine, Serum 0.73 mg/dL (0.55-1.02); EST Glomerular Filtration Rate 103 mL/min (>60); Est Glom Filt Rate - Afr Amer 124 mL/min (>60); Estimated Creatinine Clearance 100.91 ml/min; Glucose 87 mg/dL (74-106); Potassium 3.8 mmol/L (3.5-5.1); Sodium Level 140 mmol/L (136-145)
[2024-01-28 18:16] LABS: Bacteria 1+ /hpf (None Seen); Red Blood Cells-Urine > 100 SEEN /hpf (0-5); Squamous Epithelial Cells - UA 0-5 SEEN /hpf (5-10); White Blood Cells >100 SEEN /hpf (0-5)
[2024-01-28] MEDS: Ceftriaxone 1 GM/50 ML BAG IV (18:51)
[2024-01-28] MEDS: HYDROcodone Bitartrate/Apap 5/325 Tablet PO (20:15)
== END 2024-01-28 20:27 | disposition home or self-care (01) ==
PROVIDERS: Physician Assistant; Emergency Provider Emergency Medicine; Visit Provider Emergency Medicine
DX: N13.6 Pyonephrosis (principal)
CPT/HCPCS: 74176; 80048; 81001; 84703; 85025; 87077; 87086; 87088; 87186; 96361; 96365; 96366; 96375; 96376; 99283; J7030; J7050; A4216; J2405

== ENCOUNTER 2024-02-01 20:31 | Emergency (ER) | payer MEDICAID, SELFPAY ==
[2024-02-01 20:32] VITALS: BP 135/88; PULSE 98; RESP 16; TEMP 36.4; O2SAT 98; BMI 28.3
--- OUTSIDE RECORDS SUMMARY | 2024-02-01 22:13 | XMS RPT_ITS | CCD ---
Author Name Unknown Address [facility] [facility] [address] [place] [address] Organization [facility] Care Team Providers Care Crisis Nurse Name Role Phone BAILEY STAUFFER Attending Unavailable FINN MATHIS Referring Unavailable ELHAM CEDEÑO~[id number] TERRELL Pr imary Care Unavailable FINN MATHIS Attending Unavailable ELHAM CEDEÑO~[id number] TERRELL Pr imary Care Unavailable ELHAM CEDEÑO~[phone] TERRELL At tending Unavailable ELHAM CEDEÑO~[phone] TERRELL Pr imary Care Unavailable Allergies Allergy Classification Reported Allergen(s) Allergy Type Date of Onset Reaction(s) Facility (1 source) diphenhydrAMINE / Zinc acetate; Translations: [DIPHENHYDRAMINE-ZIN C ACETATE] Drug Allergy [facility] Repository Problems Problem Classification Problem Date [...] Type Care Provider Facility Start: 04-22-2023 ambulatory ELHAM~[id number] TE[address]ADA [facility] Start: 10-07-2022 End: 10-07-2022 ambulatory BAILEY Arroyo [facility] Start: 10-01-2022 ambulatory FINN MATHIS [facility] Payers Date Payer Category Payer Policy ID Unknown [id number] Progress note 04-08-2021 Note Date & Type Note Facility 04-08-2021 Note HNO ID: [id number] Author: Nina Miles LPN Service: ? Author [...] IM left upper quadrant gluteus, Lot # [id number], expiration date 01/20/23. Depo-Provera was given without [...] See medication note for lot#, exp date. [facility] Progress note 04-08-2021 Note Date & Type Note Facility 04-08-2021 Note HNO ID: [id number] Author: Megha Beatty APRN.SAYRA Service: ? Author Type: Nurse Practitioner Type: Progress Notes Filed: 04/08/2021 12:29 PM Note Text: CONTRACEPTION Phyllis Castle is a 21 year old who presents [...] not taking: Reported on 04/08/2021 ) - Hfobyawi-Ea-Qoe-Fe-FA ( VITAMIN) tab Take 1 tablet by [...] Medical Decision Making Level: 3 - Low [facility] Summary Purpose Family History No Family History Records FoundNo Family History Records FoundNo Family History Records FoundNo Family History Records Found Advance Directives No Advanced Directives Records FoundNo Advanced Directives Records FoundNo Advanced Directives Records FoundNo Advanced Directives Records Found Additional Source Comments INFORMATION SOURCE (unrecogn ized section and content) DATE CREATED AUTHOR AUTHOR'S ORGANIZ ATION 11/04/2021 [facility] DATE CREATED AUTHOR AUTHOR'S ORGANIZ ATION 12/26/2021 [facility] DATE CREATED AUTHOR AUTHOR'S ORGANIZ ATION 05/01/2023 [facility] FOR RECORDS PERTAINING TO PATIENTS WHO [...] BE BASED ON THE PRIMARY CLINICAL RECORDS. [facility], [facility]. provides no warranty or guarantee of the accuracy or completeness of information in this document.
== END 2024-02-01 21:30 | disposition left against medical advice (07) ==
LOC: ED 22:10
DX: Z00.00 Encounter for general adult medical examination without abnormal findings (principal)

== ENCOUNTER 2024-03-06 18:37 | Inpatient (IN) | payer MEDICAID, SELFPAY ==
[2024-03-06 18:37] VITALS: BP 127/93; PULSE 121; RESP 20; TEMP 36; O2SAT 95; BMI 27.8
--- NOTE | 2024-03-06 18:48 | CT_ITS ---
STUDY: CT Abdomen And Pelvis W/O Contrast Injection 03/06/2024 7:57 PM REASON FOR EXAM: Female, 23 years old. ABDOMINAL PAIN flank pain TECHNIQUE: Transaxial images were obtained without oral contrast, and without intravenous contrast. Individualized dose optimization techniques were used for this CT. COMPARISON: 23 FINDINGS: The visualized lung bases are unremarkable. The visualized portions of the heart are within normal limits. There is hepatomegaly with diffuse hepatic enlargement. There are multiple gallstones. Unremarkable spleen. Unremarkable pancreas. Unremarkable bilateral adrenal glands. Non obstructive 2 mm right renal parenchymal stones. No acute findings of the left kidney. Right hydronephroureter. Inflammation is seen around the kidney and ureter. An obstructing calcified stone is not identified. This would suggest passage of a stone or infectious process of the kidney. Unremarkable visualized stomach. Unremarkable small intestine. Unremarkable colon. There is non-visualization of the appendix. There are no acute findings of the abdominal aorta. Unremarkable inferior vena cava. Subcentimeter mesenteric lymph nodes. Unremarkable urinary bladder. Normal visualized uterus. 28 mm right ovarian cyst. There is an umbilical hernia containing fat. Unremarkable osseous structures. CT/Abdomen/Pelvis without Cont IMPRESSION: (NOT LISTED IN ORDER OF SIGNIFICANCE) Large liver. Right hydronephroureter. Inflammation is seen around the kidney and ureter. An obstructing calcified stone is not identified. This would suggest passage of a stone or infectious process of the kidney. There are multiple gallstones. Other findings as above. Electronically Signed: Ventura Crews MD at 20:01 EDT ,
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
[2024-03-06] MEDS: Ondansetron 4 MG/2 ML Vial IV (18:56)
[2024-03-06] MEDS: 0.9% Normal Saline (1000mL) 1,000 ML 1000 ML IV (18:56)
[2024-03-06 19:04] LABS: Mucous, Urine 0 SEEN /hpf (<or=2+)
[2024-03-06 19:07] LABS: Color, Urine Yellow (Yellow); Glucose, Dipstick Normal (Normal); Ketone-Dipstick Negative (Negative); Leukocyte Esterase-Dipstick 500 /ul (Negative); Nitrite-Dipstick Positive (Negative); Occult Blood-Urine 250 /ul (Negative); Protein-Dipstick 100 mg/dl (Negative); Specific Gravity, Urine 1.015 (1.002-1.030); Urine Bilirubin Dipstick Negative (Negative); Urine Clarity Cloudy (Clear); Urine Urobilinogen 1 mg/dl (Normal)
[2024-03-06 19:14] LABS: Absolute Lymphocyte Count 0.99 X10^3/uL (0.83-4.51); Absolute Neutrophil Count 15.4 X10^3/uL (2.0-7.7); Basophil# 0.07 X10^3/uL; Basophil% 0.4 % (0-1); Eosinophil# 0.22 X10^3/uL; Eosinophils% 1.2 % (0-5); Hematocrit 43.3 % (37-47); Hemoglobin 13.7 g/dL (12.0-15.0); Lymphocyte # 0.99 X10^3/ul (0.83-4.51); Lymphocyte % 5.6 % (19-41); Mean Corp Hgb Conc 31.6 g/dL (32-36); Mean Corpuscular Hgb 27.7 pg (27.0-32.0); Mean Corpuscular Volume 87.5 fL (81-99); Mean Platelet Vol. 10.7 fl (6.2-12.0); Monocyte# 1.07 X10^3/uL; NRBC Flagged by Analyzer 0 % (0-5); Neutrophil # 15.36 X10^3/uL (2.7-7.7); Neutrophil % 86.5 % (47-70); Platelet Count 334 K/mm3 (150-450); RBC Distribution Width CV 12.8 % (11.6-14.6); Red Blood Count 4.95 M/mm3 (4.2-5.4); White Blood Count 17.8 K/mm3 (4.4-11.0)
[2024-03-06 19:15] LABS: Squamous Epithelial Cells - UA 5-10 SEEN /hpf (5-10); White Blood Cells >100 SEEN /hpf (0-5)
[2024-03-06 19:16] LABS: Bacteria 1+ /hpf (None Seen); Red Blood Cells-Urine 0-5 SEEN /hpf (0-5)
[2024-03-06 19:22] LABS: Internal QC Validated? YES +Cl - CLEAR BKGD; Pregnancy, Serum, hCG Quali. NEGATIVE Negative
[2024-03-06 19:26] LABS: AST(SGOT) 19 U/L (15-37); Alanine Aminotransfer ALT/SGPT 23 U/L (13-56); Alkaline Phosphatase 142 U/L (45-117); Anion Gap 8 (5-15); BUN 14 mg/dL (7-18); BUN/Creat Ratio 17.3 RATIO (10-20); Chloride 109 mmol/L (98-107); Creatinine, Serum 0.81 mg/dL (0.55-1.02); EST Glomerular Filtration Rate 92 mL/min (>60); Est Glom Filt Rate - Afr Amer 111 mL/min (>60); Estimated Creatinine Clearance 89.91 ml/min; Globulin 4.1 g/dL (2.2-4.2); Glucose 114 mg/dL (74-106); Potassium 3.9 mmol/L (3.5-5.1); Protein, Total 8.1 g/dL (6.4-8.2); Sodium Level 141 mmol/L (136-145)
[2024-03-06] MEDS: Ketorolac 15 MG/ML Vial IV (19:45)
[2024-03-06] MEDS: Ceftriaxone 1 GM/50 ML BAG IV (19:45)
[2024-03-06] MEDS: Morphine 4 MG/ML Syringe IV (20:16)
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
[2024-03-06] MEDS: Metoclopramide 10 MG/2 ML Vial 5 MG IV (20:43)
[2024-03-06 20:46] VITALS: BP 149/85; PULSE 109; RESP 16; TEMP 36.7; O2SAT 95
[2024-03-06 20:50] VITALS: BP 149/85; PULSE 109; RESP 16; TEMP 36.7; O2SAT 95
[2024-03-06 21:21] VITALS: BMI 28.0
[2024-03-06 21:48] VITALS: BP 115/67; PULSE 120; RESP 16; TEMP 37; O2SAT 97
[2024-03-06 22:10] VITALS: O2SAT 98
[2024-03-06] MEDS: Lactobacillis Acidophilus 2 CAP PO (22:44)
[2024-03-06] MEDS: 0.9% Normal Saline (1000mL) 1,000 ML 125 ML IV (22:44)
[2024-03-06 23:56] LABS: Amphetamine Urine VISTA NEGATIVE (<1000 ng/mL); Barbiturate Urine VISTA NEGATIVE (< 200 ng/mL); Benzodiazepine Urine VISTA NEGATIVE (< 200 ng/mL); Cocaine Urine VISTA NEGATIVE (< 300 ng/mL); Ecstacy Urine VISTA NEGATIVE (< 500 ng/mL); Methadone Urine VISTA NEGATIVE (< 300 ng/mL); PCP Urine VISTA NEGATIVE (< 25 ng/mL); THC Urine VISTA NEGATIVE (< 50 ng/mL); Vista UDS pH Range 5
[2024-03-07] VITALS (8 sets, daily range): BP systolic 112–133; BP diastolic 62–91; PULSE 98–109; RESP 16–18; TEMP 36.6–38.2; O2SAT 97–100; BMI 28.8
[2024-03-07] MEDS: Acetaminophen 325 MG Tablet 650 MG PO ×3 (04:50→20:17)
[2024-03-07] MEDS: 0.9% Normal Saline (1000mL) 1,000 ML 125 ML IV ×3 (06:35→22:46)
[2024-03-07 06:51] LABS: Absolute Lymphocyte Count 1.26 X10^3/uL (0.83-4.51); Absolute Neutrophil Count 9.2 X10^3/uL (2.0-7.7); Basophil# 0.03 X10^3/uL; Basophil% 0.3 % (0-1); Eosinophil# 0.19 X10^3/uL; Eosinophils% 1.6 % (0-5); Hematocrit 35.2 % (37-47); Hemoglobin 11.2 g/dL (12.0-15.0); Lymphocyte # 1.26 X10^3/ul (0.83-4.51); Lymphocyte % 10.7 % (19-41); Mean Corp Hgb Conc 31.8 g/dL (32-36); Mean Corpuscular Hgb 27.9 pg (27.0-32.0); Mean Corpuscular Volume 87.6 fL (81-99); Mean Platelet Vol. 10.7 fl (6.2-12.0); Monocyte# 1.02 X10^3/uL; Monocyte% 8.7 % (0-10); NRBC Flagged by Analyzer 0 % (0-5); Neutrophil # 9.19 X10^3/uL (2.7-7.7); Neutrophil % 78.2 % (47-70); Platelet Count 267 K/mm3 (150-450); RBC Distribution Width CV 12.8 % (11.6-14.6); RBC Distribution Width SD 41.1 fl (35.1-43.9); Red Blood Count 4.02 M/mm3 (4.2-5.4); White Blood Count 11.8 K/mm3 (4.4-11.0)
[2024-03-07 07:25] LABS: ALB/GLOB Ratio 0.9 RATIO (0.9-2.4); AST(SGOT) 12 U/L (15-37); Alanine Aminotransfer ALT/SGPT 17 U/L (13-56); Albumin, Serum 2.9 g/dL (3.2-5.0); Alkaline Phosphatase 106 U/L (45-117); Anion Gap 4 (5-15); BUN 9 mg/dL (7-18); BUN/Creat Ratio 13.9 RATIO (10-20); Calcium,Total 8.1 mg/dL (8.5-10.1); Chloride 112 mmol/L (98-107); Creatinine, Serum 0.65 mg/dL (0.55-1.02); EST Glomerular Filtration Rate 119 mL/min (>60); Est Glom Filt Rate - Afr Amer 143 mL/min (>60); Estimated Creatinine Clearance 114.32 ml/min; Globulin 3.3 g/dL (2.2-4.2); Glucose 99 mg/dL (74-106); Magnesium 1.9 mg/dL (1.6-2.6); Phosphorus 1.9 mg/dL (2.5-4.9); Potassium 3.6 mmol/L (3.5-5.1); Protein, Total 6.2 g/dL (6.4-8.2); Sodium Level 140 mmol/L (136-145)
--- NOTE | 2024-03-07 09:17 | PN.HOSP_ITS ---
Reason for Visit Reason for Visit: Diagnoses Elevated white blood cell count, unspecified (03/06/24) Tubulo-interstitial nephritis, not specified as acute or chronic (03/06/24) Hydroureter (03/06/24) Subjective Subjective Patient is a 23-year-old lady who presented with right-sided flank pain and assessment of acute pyelonephritis made admitted to regular nursing floor for further management Objective Data Objective Data Vital Signs: Vital Signs Temp Pulse Resp BP Pulse Ox O2 Del Method 98.5 F 109 H 16 112/62 98 Room Air 03/07/24 03:28 03/07/24 03:28 03/07/24 03:28 03/07/24 03:28 03/07/24 03:28 03/07/24 03:28 Oxygen Delivery Method Room Air Weight: 67.4 kg Body Mass Index (BMI) 28.8 Intake & Output: Intake and Output for Last 24 Hours 03/05/24 03/06/24 03/07/24 23:59 23:59 23:59 Intake Total 1050 / 1300 1681.25 / 1681.25 Balance 1050 / 1300 1681.25 / 1681.25 Lab / Micro Data 03/07/24 06:21 03/07/24 06:21 Labs: Laboratory Results - last 24 hr 03/06/24 19:00: WBC 17.8 H, RBC 4.95, Hgb 13.7, Hct 43.3, MCV 87.5, MCH 27.7, MCHC 31.6 L, RDW Std Deviation 41.0, RDW Coeff of Jessica 12.8, Plt Count 334, MPV 10.7, Immature Gran % (Auto) 0.300, Neut % (Auto) 86.5 H, Lymph % (Auto) 5.6 L, [place] % (Auto) 6.0, Eos % (Auto) 1.2, Baso % (Auto) 0.4, Absolute Neuts (auto) 15.4 H, Absolute Lymphs (auto) 0.99, Nucleated RBC % 0, Sodium 141, Potassium 3.9, Chloride 109 H, Carbon Dioxide 24.0, Anion Gap 8, BUN 14, Creatinine 0.81, Estim Creat Clear Calc 89.91, Est GFR (MDRD) Af Amer 111, Est GFR (MDRD) Non-Af 92, BUN/Creatinine Ratio 17.3, Glucose 114 H, Calcium 9.0, Total Bilirubin 0.70, AST 19, ALT 23, Alkaline Phosphatase 142 H, Total Protein 8.1, Albumin 4.0, Globulin 4.1, Albumin/Globulin Ratio 1.0, Serum , Qual NEGATIVE, Urine Color Yellow, Urine Clarity Cloudy, Urine pH 5.0, Ur Specific [place] 1.015, Urine Protein 100 H, Urine Glucose (UA) Normal, Urine Ketones Negative, Urine Occult Blood 250 H, Urine Nitrite Positive H, Urine Bilirubin Negative, Urine Urobilinogen 1 H, Ur Leukocyte Esterase 500 H, Urine RBC 0-5 SEEN, Urine WBC >100 SEEN, Ur Squamous Epith Cells 5-10 SEEN, Urine Bacteria 1+, Urine Mucus 0 SEEN, Urine Opiates Screen NEGATIVE, Urine Methadone Screen NEGATIVE, Ur Barbiturates Screen NEGATIVE, Ur Phencyclidine Scrn NEGATIVE, Ur Amphetamines Screen NEGATIVE, MDMA (Ecstasy) Screen NEGATIVE, U Benzodiazepines Scrn NEGATIVE, Urine Cocaine Screen NEGATIVE, U Cannabinoids Screen NEGATIVE, Ur Drug Screen Comment 03/07/24 06:21: WBC 11.8 H, RBC 4.02 L, Hgb 11.2 L, Hct 35.2 L, MCV 87.6, MCH 27.9, MCHC 31.8 L, RDW Std Deviation 41.1, RDW Coeff of Jessica 12.8, Plt Count 267, MPV 10.7, Immature Gran % (Auto) 0.500, Neut % (Auto) 78.2 H, Lymph % (Auto) 10 .7 L, [place] % (Auto) 8.7, Eos % (Auto) 1.6, Baso % (Auto) 0.3, Absolute Neuts (auto) 9.2 H, Absolute Lymphs (auto) 1.26, Nucleated RBC % 0, Sodium 140, Potassium 3.6, Chloride 112 H, Carbon Dioxide 24.0, Anion Gap 4 L, BUN 9, Creatinine 0.65, Estim Creat Clear Calc 114.32, Est GFR (MDRD) Af Amer 143, Est GFR (MDRD) Non-Af 119, BUN/Creatinine Ratio 13.9, Glucose 99, Calcium 8.1 L, Morgan sphorus 1.9 L, Magnesium 1.9, Total Bilirubin 0.30, AST 12 L, ALT 17, Alkaline Phosphatase 106, Total Protein 6.2 L, Albumin 2.9 L, Globulin 3.3, Albumin/Globulin Ratio 0.9 Radiography Diagnostic Testing: Radiology Impression Abdomen/Pelvis CT 03/06/24 18:48 IMPRESSION: (NOT LISTED IN ORDER OF SIGNIFICANCE) Large liver. Right hydronephroureter. Inflammation is seen around the kidney and ureter. An obstructing calcified stone is not identified. This would suggest passage of a stone or infectious process of the kidney. There are multiple gallstones. Other findings as above. Electronically Signed: Ventura Crews MD at 20:01 EDT Reading Location ID and State: [facility] / [place] , Service support , Physical Exam Narrative GENERAL: cooperative HEENT: Atraumatic; normocephalic EYES; Anicteric, Normal Conjunctiva NECK; supple, normal thyroid, RESPIRATORY: Diminished to auscultation CARDIOVASCULAR: Regular S1 S2, GI: soft, normoactive bowel sounds, : Right renal angle tenderness; EXTREMITIES: No edema, no clubbing, MUSCULOSKELETAL: no muscle wasting NEURO: Awake; no lateralizing signs. SKIN: No Rash PSYCH; Flat affect Assessment & Plan Assessment/Plan (1) Pyelonephritis: (2) Hydroureter: (3) Leukocytosis: QUALIFIERS: Leukocytosis type: unspecified Qualified Code(s): D72.829 - Elevated white blood cell count, unspecified PLAN: Plan Patient is a 23-year-old lady who presented with right flank pain 1. Acute right-sided pyelonephritis ? Imaging studies demonstrated hydronephrosis and ureteral. Urinalysis came back consistent with urinary tract infection. Patient started on broad-spectrum antibiotic therapy admitted to regular nursing floor blood and urine cultures sent and consultation placed to nephrology 2. Hypophosphatemia ? Corrected per protocol 3. Recent diagnosis of left sided pyelonephritis ? Patient apparently did not complete treatment counseled on the need to be compliant with medical recommendation 4. Mild intermittent asthma ? Currently not in exacerbation ordered aerosol treatment as needed 5. History of SVT ? Treated with ablation 6. DVT prophylaxis ? Low risk did encourage early ambulation Time spent in the patient's overall evaluation,decision-making process, review of diagnostic data, adjustment of management, discussion with other providers, nursing nursing and ancillary staff involved in patient's care documentation, 35 Minutes 1. Right Pyelonephritis with hydronephroureter and suspicion for recently passed renal calculus with laboratory evidence of Leukocytosis of 17.8 present on admission - Admit to general medical floor. Continue empiric IV Rocephin begun in the ER and await culture and sensitivity data. Give volume resuscitation with NS IVF. Give Tylenol prn for [id number] (level 1-5/10) pain or fe segundo. Give Morphine IV prn for severe (level 6-10/10) pain. Give Zofran IV prn nausea and vomiting. Finally, due to recurrent nature of her infection we will consult urology to see this patient on-rounds in the AM for further recommendations with help appreciated in advance. 2. Recent history of Left Pyelonephritis last month with patient having not completed her course of oral Bactrim complicating #1 - Noted. 3. Overweight; with BMI of 27.9 this admission - Weight loss will be recommen ded. 4. History of asthma - Stable with no evidence of flare. Continue prn nebulizers. 5. History of SVT; s/p ablation - Noted with no evidence of recurrence. 6. History of - Noted. 7. DVT prophylaxis - SCD's only with possible impending cystoscopy. Total time: Approximately 55 minutes. Charges/Coding Visit Charges Inpatient E&M: 21156 Subs Hosp L2
[2024-03-07] MEDS: 0.9% Saline Lock 10 ML Syringe IV ×2 (10:26→20:00)
[2024-03-07] MEDS: Lactobacillis Acidophilus 2 CAP PO ×2 (10:27→20:01)
[2024-03-07] MEDS: Na Biphos/Potassium Phosphate PACKET 1 PACKET PO ×2 (10:27→20:01)
[2024-03-07] MEDS: Morphine 2 MG/ML Syringe IV ×3 (10:32→19:59)
--- NOTE | 2024-03-07 12:50 | CASEMGMT ---
RN?CM?LOWER IN SUPERVISOR?CM?to room to meet with patient for initial transition planning/care coordination?assessment.?RN?CM?introduced self and role at [facility].? Pt voices understanding and consents to?assessment?at this time.? Pt resting in bed in no distress at this time.? Friend, Madhuri, @ bedside and pt agreeable to her being present during assessment. Pt is A/O at this time and answers all questions appropriately.?? Care providers, pharmacy, and demographics verified/updated at this time. PCP: No PCP. Pt would like PCP list in [facility]. Bibi, MS3 RN CM, made aware. Specialists: none Preferred Pharmacy: [facility] Insurance: [facility] Prescription Benefit:?yes LNOK: , Abdias Living Arrangements: Lives w/ and 3 children (ages 1, 3, 5). Independent. Transportation:?Pt states drives self and states no transportation concerns at this time.? also drives. DME: ? Denies using any DME and denies needs.? HHC/SNF: No history. No needs identified. Pt wishes to return home and states has no concerns with going home. PLAN:??Home Megan CONROYN?RN?CM
--- NOTE | 2024-03-07 15:04 | CASEMGMT ---
RN MIKI provided pt with a in network list of PCP's for the area of [place]. Pt denies needing any help in setting this up. She will review the list and set up on her own.
[2024-03-07] MEDS: Baclofen 10 MG Tablet PO ×2 (15:34→20:00)
[2024-03-07] MEDS: Ceftriaxone 1 GM/50 ML BAG IV (20:00)
[2024-03-08] MEDS: Morphine 2 MG/ML Syringe IV ×2 (03:00→09:10)
[2024-03-08] MEDS: Acetaminophen 325 MG Tablet 650 MG PO ×2 (03:02→09:10)
[2024-03-08] MEDS: 0.9% Saline Lock 10 ML Syringe IV (03:02)
[2024-03-08 03:21] VITALS: BP 124/81; PULSE 110; RESP 16; TEMP 37.2; O2SAT 98
[2024-03-08 04:40] VITALS: BMI 28.7
[2024-03-08] MEDS: Baclofen 10 MG Tablet PO (05:02)
[2024-03-08] MEDS: 0.9% Normal Saline (1000mL) 1,000 ML 125 ML IV (05:03)
--- NOTE | 2024-03-08 07:09 | CON.PCM.UR_ITS ---
Assessment & Plan Assessment/Plan (1) Pyelonephritis: PLAN: Recurrent urinary tract infections, of course is a risk factor, she needs to follow-up with a DORMITORY SUPERVISOR, and she will need to follow-up with urology in her network outpatient. HPI Consult Data Date of Consult: 03/08/24 HPI Narrative Reason for Consultation: Recurrent pyelonephritis HPI Narrative: PHYLLIS TATE, is a 23 F who presents to the hospital with recurrent pyelonephritis. CT scan reviewed there is really no focal abscess or blockage or obstruction. I would probably continue with antibiotics and tailor according to culture. She can follow with urology as an outpatient she may need to find a provider that is within her network. [facility], [facility] Medical History Asthma Migraines SVT (supraventricular tachycardia) Home Medications NK 03/06/24 [History Last Taken Unknown] Allergy/AdvReac Type Severity Reaction Status Date / Time diphenhydramine Allergy CHILDHOOD Verified 03/06/24 18:39 [From Benadryl] ALLERGY Penicillins [PCN] Allergy CHILDHOOD Verified 03/06/24 18:39 ALLERGY Surgical History History of Social History household members: family Smoking Status: Current every day smoker tobacco type: smokeless tobacco Physical Exam Const alert and oriented x3 General Appearance: cooperative HEENT normocephalic, head/scalp atraumatic, EAC's normal and TM's normal bilaterally Eyes PERRL and EOMs intact bilaterally Pupil: sluggish Neck no lymphadenopathy, supple and no JVD General: trachea midline Lymph Lymphatic: no lymphadenopathy noted, lymphedema and lymphadenopathy Resp normal respiratory effort, normal air movement and clear to auscultation bilaterally Cardio regular rate, regular rhythm and peripheral pulses 2+ throughout GI soft to palpation, non-tender and non-distended Extremity normal capillary refill and no clubbing, cyanosis or edema General Extremity: no tenderness to palpation of joints or extremities Skin no rashes or lesions noted General Skin Exam: turgor normal Lesions: no lesions Rashes: no rashes Neuro CN's II-XII intact bilaterally Speech: speech normal Motor Exam: strength 5/5 throughout; Negative for general weakness Psych thought process normal, cooperative and affect normal Appearance: appropriate Lab / Micro Data 03/07/24 06:21 03/07/24 06:21 Labs: Laboratory Results - last 24 hr 03/07/24 06:21: Sodium 140, Potassium 3.6, Chloride 112 H, Carbon Dioxide 24.0, Anion Gap 4 L, BUN 9, Creatinine 0.65, Estim Creat Clear Calc 114.32, Est GFR (MDRD) Af Amer 143, Est GFR (MDRD) Non-Af 119, BUN/Creatinine Ratio 13.9, Glucose 99, Calcium 8.1 L, Phosphorus 1.9 L, Magnesium 1.9, Total Bilirubin 0.30, AST 12 L, ALT 17, Alkaline Phosphatase 106, Total Protein 6.2 L, Albumin 2.9 L, Globulin 3.3, Albumin/Globulin Ratio 0.9 Micro: Microbiology 03/06/24 19:00 Urine, Clean Catch Urine Culture - Preliminary Presumptive E. coli
[2024-03-08 07:12] LABS: Absolute Lymphocyte Count 1.37 X10^3/uL (0.83-4.51); Absolute Neutrophil Count 4.5 X10^3/uL (2.0-7.7); Basophil# 0.04 X10^3/uL; Basophil% 0.6 % (0-1); Eosinophil# 0.13 X10^3/uL; Eosinophils% 1.9 % (0-5); Hematocrit 35.7 % (37-47); Hemoglobin 11.1 g/dL (12.0-15.0); Lymphocyte # 1.37 X10^3/ul (0.83-4.51); Lymphocyte % 19.5 % (19-41); Mean Corp Hgb Conc 31.1 g/dL (32-36); Mean Corpuscular Hgb 27.5 pg (27.0-32.0); Mean Corpuscular Volume 88.6 fL (81-99); Mean Platelet Vol. 10.9 fl (6.2-12.0); Monocyte# 0.97 X10^3/uL; Monocyte% 13.8 % (0-10); NRBC Flagged by Analyzer 0 % (0-5); Neutrophil # 4.48 X10^3/uL (2.7-7.7); Neutrophil % 63.9 % (47-70); Platelet Count 262 K/mm3 (150-450); RBC Distribution Width SD 42.3 fl (35.1-43.9); Red Blood Count 4.03 M/mm3 (4.2-5.4)
[2024-03-08 07:34] VITALS: BP 128/82; PULSE 90; RESP 16; TEMP 36.9; O2SAT 100
[2024-03-08] MEDS: Lactobacillis Acidophilus 2 CAP PO (07:38)
[2024-03-08] MEDS: Na Biphos/Potassium Phosphate PACKET 1 PACKET PO (07:38)
[2024-03-08 07:48] LABS: Anion Gap 4 (5-15); BUN 5 mg/dL (7-18); BUN/Creat Ratio 8.6 RATIO (10-20); Calcium,Total 8.5 mg/dL (8.5-10.1); Chloride 114 mmol/L (98-107); Creatinine, Serum 0.58 mg/dL (0.55-1.02); EST Glomerular Filtration Rate 134 mL/min (>60); Est Glom Filt Rate - Afr Amer 162 mL/min (>60); Estimated Creatinine Clearance 128.02 ml/min; Glucose 98 mg/dL (74-106); Magnesium 1.9 mg/dL (1.6-2.6); Phosphorus 2.3 mg/dL (2.5-4.9); Potassium 3.7 mmol/L (3.5-5.1); Sodium Level 140 mmol/L (136-145)
--- NOTE | 2024-03-08 08:07 | DS.PCM_ITS ---
Providers Date of Admission: 03/06/24 Date of Discharge: 03/08/24 Primary Care Physician: No Primary Care Phys Reason For Visit: RIGHT PYELONEPHRITIS Diagnosis Discharge Diagnosis (1) Pyelonephritis: Status: Acute Code(s): N12 - Tubulo-interstitial nephritis, not specified as acute or chronic Plan Patient is a 23-year-old lady who presented with right flank pain 1. Acute right-sided pyelonephritis ? Imaging studies demonstrated hydronephrosis and ureteral. Urinalysis came back consistent with urinary tract infection. Patient started on broad-spectrum antibiotic therapy admitted to regular nursing floor blood and urine cultures sent and consultation placed to nephrology -Urine cultures came back positive for E. coli sensitivities reviewed. Patient was also seen in consultation by Dr Meredith his notes and recommendations reviewed 2. Hypophosphatemia ? Corrected per protocol 3. Recent diagnosis of left sided pyelonephritis ? Patient apparently did not complete treatment counseled on the need to be compliant with medical recommendation 4. Mild intermittent asthma ? Currently not in exacerbation ordered aerosol treatment as needed 5. History of SVT ? Treated with ablation 6. DVT prophylaxis ? Low risk did encourage early ambulation Time spent in the patient's overall evaluation,decision-making process, review of diagnostic data, adjustment of management, discussion with other providers, nursing nursing and ancillary staff involved in patient's care documentation, 35 Minutes Medications at Discharge Home Medications acetaminophen 325 mg tablet 650 mg (2 x 325 mg) PO Q6H PRN PRN Pain 1-5/10 or Fever #0 tabs 03/08/24 baclofen 10 mg tablet 10 mg PO TID #30 tabs 03/08/24 ciprofloxacin HCl 500 mg tablet 500 mg PO BID #20 tabs 03/08/24 ondansetron 4 mg disintegrating tablet 4 mg PO Q6H PRN nausea and vomiting #20 tabs 03/08/24 oxycodone 5 mg capsule 5 mg PO Q4H 5 days #20 caps 03/08/24 potassium, sodium phosphates 280 mg-160 mg-250 mg oral powder packet 1 packet PO BID #100 ea 03/08/24 Physical Exam Narrative GENERAL: cooperative HEENT: Atraumatic; normocephalic EYES; Anicteric, Normal Conjunctiva NECK; supple, normal thyroid, RESPIRATORY: Diminished to auscultation CARDIOVASCULAR: Regular S1 S2, GI: soft, normoactive bowel sounds, : Right renal angle tenderness; EXTREMITIES: No edema, no clubbing, MUSCULOSKELETAL: no muscle wasting NEURO: Awake; no lateralizing signs. SKIN: No Rash PSYCH; Flat affect Weight / BMI Weight Weight: 67.3 kg Body Mass Index (BMI) 28.7 ABG / Lab / Microbiology Data 03/08/24 06:36 03/08/24 06:36 Laboratory: Laboratory Results - last 24 hr 03/08/24 06:36: WBC 7.0, RBC 4.03 L, Hgb 11.1 L, Hct 35.7 L, MCV 88.6, MCH 27.5, MCHC 31.1 L, RDW Std Deviation 42.3, RDW Coeff of Jessica 13.0, Plt Count 262, MPV 10.9, Immature Gran % (Auto) 0.300, Neut % (Auto) 63.9, Lymph % (Auto) 19.5, [place] % (Auto) 13.8 H, Eos % (Auto) 1.9, Baso % (Auto) 0.6, Absolute Neuts (auto) 4.5, Absolute Lymphs (auto) 1.37, Nucleated RBC % 0, Sodium 140, Potassium 3.7, Chloride 114 H, Carbon Dioxide 22.0, Anion Gap 4 L, BUN 5 L, Creatinine 0.58, Estim Creat Clear Calc 128.02, Est GFR (MDRD) Af Amer 162, Est GFR (MDRD) Non-Af 134, BUN/Creatinine Ratio 8.6 L, Glucose 98, Calcium 8.5, Phosphorus 2.3 L, Magnesium 1.9 Microbiology: Microbiology 03/06/24 19:00 Urine, Clean Catch Urine Culture - Final Presumptive E. coli D/C Instructions Discharge Diet: No restrictions Discharge Activity: Return to Normal Activity Call your doctor if you observe: Fever of 101 or Higher, Shortness of breath, Fainting spells and Chest pain Meaningful Use Info Meaningful Use Diagnoses (Choose all that apply): None applicable Discharge Plan Admission Admit Date/Time: 03/06/24 20:32 Attending Provider: Teo Candelario Primary Care Provider: Care Physician,No Primary Consulting Providers: Teo Jurado Discharge Orders/Prescriptions Prescriptions: New potassium, sodium phosphates 280-160-250 mg Powder In Packet 1 packet PO BID Qty: 100 0RF acetaminophen 325 mg Tablet 650 mg PO Q6H PRN PRN (Reason: Pain 1-5/10 or Fever) Qty: 0 0RF baclofen 10 mg Tablet 10 mg PO TID Qty: 30 0RF oxycodone 5 mg capsule 5 mg PO Q4H 5 Days Qty: 20 0RF ondansetron 4 mg tablet,disintegrating 4 mg PO Q6H PRN (Reason: nausea and vomiting) Qty: 20 0RF ciprofloxacin HCl 500 mg tablet 500 mg PO BID Qty: 20 0RF Referrals / Follow Up: Georges Meredith MD [Med Staff - Active Staff] - Within 2 Weeks Care Physician,No Primary [Primary Care Provider] - Within 1 Week Disposition Disposition (needs filled in before D/C Order can be placed): Home, Self Care Charges/Coding Visit Charges Inpatient E&M: 34886 Disch Hosp >30min
[2024-03-08 09:04] VITALS: O2SAT 97
== END 2024-03-08 09:19 | disposition home or self-care (01) | DRG 463 ==
LOC: ED 20:24 → MS3 21:29
PROVIDERS: Nurse Practitioner; Admitting Provider Internal Medicine; Emergency Provider Emergency Medicine; Referring Provider Internal Medicine; Visit Provider Internal Medicine
DX: N10 Acute pyelonephritis (principal); E66.3 Overweight; J45.20 Mild intermittent asthma, uncomplicated; F17.220 Nicotine dependence, chewing tobacco, uncomplicated; Z68.27 Body mass index [BMI] 27.0-27.9, adult
CPT/HCPCS: 36415; 74176; 80048; 80053; 80307; 81001; 83735; 84100; 84703; 85025; 87086; 87088; 87186; 94668; 99284; J7030; A4216; J2405

== ENCOUNTER 2024-07-03 18:27 | Emergency (ER) | payer SELFPAY ==
[2024-07-03 18:27] VITALS: BP 122/89; PULSE 116; RESP 16; TEMP 36.1; O2SAT 96; BMI 26.9
--- NOTE | 2024-07-03 19:01 | EX.ED.DYSGE1 ---
HPI <NELSON Burroughs - Last Filed: 07/03/24 20:40> History of Present Illness Chief Complaint: Abd Pain Narrative Narrative: Patient is a 24-year-old female with history of anxiety, SVT, history of kidney infection who presents to the emergency department with complaints of 3 to 4 days of abdominal pain, nausea, anxiety. Patient states that she has been dealing with a lot of stress over the last several weeks. Patient states that she feels pressure when she urinates, she is concerned she may have getting a UTI or kidney infection. She states the pain feels anywhere from her lower abdomen to her left upper abdomen. She denies any fever or chills. Denies any blood in her stool or vomit. Denies any concern for . PFSH <NELSON Burroughs - Last Filed: 07/03/24 20:40> [facility] Medical History Asthma Migraines SVT (supraventricular tachycardia) Home Medications ?Medication ?Instructions ?Recorded ?Last Taken ?Type acetaminophen 325 mg tablet 650 mg (2 x 325 mg) PO Q6H PRN PRN 03/08/24 Unknown Rx Pain 1-5/10 or Fever #0 tabs baclofen 10 mg tablet 10 mg PO TID #30 tabs 03/08/24 Unknown Rx ciprofloxacin HCl 500 mg tablet 500 mg PO BID #20 tabs 03/08/24 Unknown Rx ondansetron 4 mg disintegrating 4 mg PO Q6H PRN nausea and 03/08/24 Unknown Rx tablet vomiting #20 tabs oxycodone 5 mg capsule 5 mg PO Q4H 5 days #20 caps 03/08/24 Unknown Rx potassium, sodium phosphates 280 1 packet PO BID #100 ea 03/08/24 Unknown Rx mg-160 mg-250 mg oral powder packet hydroxyzine HCl 25 mg tablet 25 mg PO TID PRN itching #14 tabs 07/03/24 Unknown Rx nitrofurantoin 100 mg PO Q12H 5 days #10 caps 07/03/24 Unknown Rx monohydrate/macrocrystals 100 mg capsule (Macrobid) phenazopyridine 100 mg tablet 100 mg PO TID PRN pain 6 doses #6 07/03/24 Unknown Rx (Pyridium) tabs Allergy/AdvReac Type Severity Reaction Status Date / Time diphenhydramine (From Allergy CHILDHOOD Verified 07/03/24 18:27 Benadryl) ALLERGY Penicillins (PCN) Allergy CHILDHOOD Verified 07/03/24 18:27 ALLERGY Surgical History History of Social History household members: family Smoking Status: Current every day smoker tobacco type: smokeless tobacco ROS <MALU BurroughsC - Last Filed: 07/03/24 20:40> ROS ED ROS Narrative Constitutional: Negative for fever, chills, weight loss, weakness Eyes: Negative for vision loss, vision change, double vision ENT: Negative for any sore throat, ear pain, congestion Cardiovascular: Negative for any chest pain, tightness, palpitations Respiratory: Negative for any cough, sputum production, hemoptysis, dyspnea, dyspnea on exertion, orthopnea Gastrointestinal: Negative for any vomiting, diarrhea, constipation, blood in stool, blood in vomit. Positive for abdominal pain, nausea : Negative for any retention, blood in urine. Positive for dysuria, urinary frequency Muscle skeletal: Negative for any neck pain, back pain Neurological: Negative for any headache, syncope, dizziness Skin: Negative for any rashes, itching, abrasions, lacerations Psychiatric: Negative for any depression, anxiety, stress, suicidal ideation, homicidal ideation Hematologic: Negative for any excessive bruising, easy bleeding EXAM <NELSON Burroughs - Last Filed: 07/03/24 20:40> Physical Exam Narrative Exam Narrative: Vital signs reviewed. HEET: Head normocephalic atraumatic, TMs clear bilaterally. Posterior pharynx is clear, moist mucous membranes. Nares clear bilaterally. Neck: Supple with no lymphadenopathy or tenderness. No signs of meningismus. Cardiac: Regular rate and rhythm no murmurs gallops or rubs, equal peripheral pulses bilaterally. Respiratory: Lungs clear to auscultation bilaterally. No chest tenderness. Abdomen: Soft, nontender, nondistended. No abdominal bruit or pulsatile masses. No hepatosplenomegaly. Abdomen is soft, no evidence of any peritoneal signs. Extremities: No peripheral edema, no signs of gross trauma or deformity. Active full range of motion of all extremities. Neuro: Cranial nerves II through XII intact, no focal neurological deficits. Skin: Clean dry and intact with no rash, purpura, petechiae, vesicles or pustules. Backs/flank: No CVA tenderness, no midline spinal tenderness, no deformity. Psych: Normal mood and affect. No SI, HI or acute psychosis. Const Vital Signs: 07/03/24 18:27 07/03/24 20:30 07/03/24 20:30 Temperature 97.0 F L 98.1 F Temperature Source Temporal Pulse Rate 116 H 92 92 Respiratory Rate 16 16 16 Blood Pressure 122/89 H 117/81 H 117/81 H Blood Pressure Mean 100 93 93 Pulse Ox 96 99 99 Oxygen Delivery Method Room Air Room Air <Dr. Nory Peterson DO - Last Filed: 07/10/24 16:39> Physical Exam Const Vital Signs: 07/03/24 18:27 07/03/24 20:30 07/03/24 20:30 Temperature 97.0 F L 98.1 F Temperature Source Temporal Pulse Rate 116 H 92 92 Respiratory Rate 16 16 16 Blood Pressure 122/89 H 117/81 H 117/81 H Blood Pressure Mean 100 93 93 Pulse Ox 96 99 99 Oxygen Delivery Method Room Air Room Air [facility] <NELSON Burroughs - Last Filed: 07/03/24 20:40> [facility] Lab Data Labs: Laboratory Results - last 24 hr 07/03/24 07/03/24 18:55 19:53 WBC 9.5 RBC 4.46 Hgb 11.8 L Hct 37.6 MCV 84.3 MCH 26.5 L MCHC 31.4 L RDW Std Deviation 39.4 RDW Coeff of Jessica 13.0 Plt Count 322 MPV 10.9 Immature Gran % (Auto) 0.200 Neut % (Auto) 75.2 H Lymph % (Auto) 16.6 L [place] % (Auto) 6.8 Eos % (Auto) 0.9 Baso % (Auto) 0.3 Absolute Neuts (auto) 7.2 Absolute Lymphs (auto) 1.58 Nucleated RBC % 0 Sodium 142 Potassium 3.4 L Chloride 111 H Carbon Dioxide 26.0 Anion Gap 5 BUN 11 Creatinine 0.83 Estim Creat Clear Calc 89.17 Est GFR (MDRD) Af Amer 107 Est GFR (MDRD) Non-Af 89 BUN/Creatinine Ratio 13.2 Glucose 91 Calcium 9.2 Total Bilirubin 0.30 AST 13 L ALT 18 Alkaline Phosphatase 128 H Total Protein 7.4 Albumin 3.7 Globulin 3.7 Albumin/Globulin Ratio 1.0 Lipase 18 Urine Color Yellow Urine Clarity Cloudy Urine pH 6.5 Ur Specific [place] 1.015 Urine Protein 15 H Urine Glucose (UA) Normal Urine Ketones Negative Urine Occult Blood Negative Urine Nitrite Negative Urine Bilirubin Negative Urine Urobilinogen 1 H Ur Leukocyte Esterase 100 H Urine RBC 0-5 SEEN Urine WBC 0-5 SEEN Ur Squamous Epith Cells 0-5 SEEN Urine Bacteria 4+ Urine Mucus 1+ Urine Test Negative Treatment and Re-Evaluation :: Differential diagnosis includes however is not limited to: UTI, pyelonephritis, anxiety, GI viral illness, diverticulitis, cholecystitis Patient appears to be in no obvious respiratory distress, patient's vital signs are stable. Patient is nontoxic-appearing. Presenting to the emergency department with complaints of lower abdominal pain, upper abdominal pain as well as dysuria. Patient received basic laboratory values including CBC CMP lipase, urinalysis, urine . IV fluids, Zofran will be given. Once patient is verified , she received Toradol. Patient on reevaluation was feeling much better. Patient's CBC was unremarkable, patient's chemistries were unremarkable, kidney function within normal limits. Lipase was negative. Patient's urinalysis was positive for infection, she is not . 4+ bacteria 100 leukocytes, no nitrates. There is 0-5 squamous cells. However patient is having symptoms. Urine culture will be sent, I will start the patient on Macrobid twice a day for 5 days, give the patient hydroxyzine for anxiety as well as Pyridium. She instructed return for any worsening back pain fever chills nausea or vomiting. Stable for discharge. <Dr. Nory Peterson, DO - Last Filed: 07/10/24 16:39> [facility] Lab Data Labs: Laboratory Results - last 24 hr 07/03/24 07/03/24 18:55 19:53 WBC 9.5 RBC 4.46 Hgb 11.8 L Hct 37.6 MCV 84.3 MCH 26.5 L MCHC 31.4 L RDW Std Deviation 39.4 RDW Coeff of Jessica 13.0 Plt Count 322 MPV 10.9 Immature Gran % (Auto) 0.200 Neut % (Auto) 75.2 H Lymph % (Auto) 16.6 L [place] % (Auto) 6.8 Eos % (Auto) 0.9 Baso % (Auto) 0.3 Absolute Neuts (auto) 7.2 Absolute Lymphs (auto) 1.58 Nucleated RBC % 0 Sodium 142 Potassium 3.4 L Chloride 111 H Carbon Dioxide 26.0 Anion Gap 5 BUN 11 Creatinine 0.83 Estim Creat Clear Calc 89.17 Est GFR (MDRD) Af Amer 107 Est GFR (MDRD) Non-Af 89 BUN/Creatinine Ratio 13.2 Glucose 91 Calcium 9.2 Total Bilirubin 0.30 AST 13 L ALT 18 Alkaline Phosphatase 128 H Total Protein 7.4 Albumin 3.7 Globulin 3.7 Albumin/Globulin Ratio 1.0 Lipase 18 Urine Color Yellow Urine Clarity Cloudy Urine pH 6.5 Ur Specific [place] 1.015 Urine Protein 15 H Urine Glucose (UA) Normal Urine Ketones Negative Urine Occult Blood Negative Urine Nitrite Negative Urine Bilirubin Negative Urine Urobilinogen 1 H Ur Leukocyte Esterase 100 H Urine RBC 0-5 SEEN Urine WBC 0-5 SEEN Ur Squamous Epith Cells 0-5 SEEN Urine Bacteria 4+ Urine Mucus 1+ Urine Test Negative Treatment and Re-Evaluation :: Differential diagnosis includes however is not limited to: UTI, pyelonephritis, anxiety, GI viral illness, diverticulitis, cholecystitis Patient appears to be in no obvious respiratory distress, patient's vital signs are stable. Patient is nontoxic-appearing. Presenting to the emergency department with complaints of lower abdominal pain, upper abdominal pain as well as dysuria. Patient received basic laboratory values including CBC CMP lipase, urinalysis, urine . IV fluids, Zofran will be given. Once patient is verified , she received Toradol. Patient on reevaluation was feeling much better. Patient's CBC was unremarkable, patient's chemistries were unremarkable, kidney function within normal limits. Lipase was negative. Patient's urinalysis was positive for infection, she is not . 4+ bacteria 100 leukocytes, no nitrates. There is 0-5 squamous cells. However patient is having symptoms. Urine culture will be sent, I will start the patient on Macrobid twice a day for 5 days, give the patient hydroxyzine for anxiety as well as Pyridium. She instructed return for any worsening back pain fever chills nausea or vomiting. Stable for discharge. I have personally performed a face to face assessment of the patient and have reviewed the ZAN Note. I performed a substantive portion of the visit including all aspects of the following. My leonard findings include: Patient is 24-year-old female presenting for dysuria and urinary frequency. Is concern for urinary tract infection. Patient is quite tearful and states she just has a lot going on her life. Does state that she feels like she can talk to her mom about it. Feel safe at home and does not have any thoughts of harming herself. No recent cutting reported. Urinalysis is consistent with possible urinary tract infection with 4+ bacteria. Given that she is symptomatic we will treat with Macrobid. She is given a prescription for Pyridium for symptoms and hydroxyzine for anxiety. Patient agreeable this plan of care. Lab work otherwise normal. Given outpatient follow-up and encouraged to follow-up also with the counseling center. She verbalized agreement to this plan. Discharged home in stable condition. Other additions or changes: [None] Discharge Plan Triage Chief Complaint: Abd Pain ED Midlevel Provider: Edgar Norris ED Provider: Nory Peterson Dx/Rx/DC Orders Clinical Impression: Anxiety, UTI (urinary tract infection) Instructions: Urinary Tract Infections in Women, UTIs Understanding, ED Anxiety Reaction Prescriptions: New nitrofurantoin monohyd/m-cryst [Macrobid] 100 mg capsule 100 mg PO Q12H 5 Days Qty: 10 0RF Rx Instructions: must administer with a meal/food phenazopyridine [Pyridium] 100 mg tablet 100 mg PO TID PRN (Reason: pain) Qty: 6 0RF hydroxyzine HCl 25 mg tablet 25 mg PO TID PRN (Reason: itching) Qty: 14 0RF No Action potassium, sodium phosphates 280-160-250 mg Powder In Packet 1 packet PO BID Qty: 100 0RF acetaminophen 325 mg Tablet 650 mg PO Q6H PRN PRN (Reason: Pain 1-5/10 or Fever) Qty: 0 0RF baclofen 10 mg Tablet 10 mg PO TID Qty: 30 0RF oxycodone 5 mg capsule 5 mg PO Q4H 5 Days Qty: 20 0RF ondansetron 4 mg tablet,disintegrating 4 mg PO Q6H PRN (Reason: nausea and vomiting) Qty: 20 0RF ciprofloxacin HCl 500 mg tablet 500 mg PO BID Qty: 20 0RF Primary Care Provider: Care Physician,No Primary Referrals: Care Physician,No Primary [Primary Care Provider] - Activity Restrictions/Additional Instructions: Please use the hydroxyzine for anxiety. The Pyridium and Macrobid are for your urinary symptoms. Please return for any worsening symptoms. You should start having relief the next 24 to 48 hours. Print Language: Chilean Disposition Disposition: Home, Self Care Discharge Date/Time: 07/03/24 20:58
[2024-07-03 19:09] LABS: Absolute Lymphocyte Count 1.58 X10^3/uL (0.83-4.51); Absolute Neutrophil Count 7.2 X10^3/uL (2.0-7.7); Basophil# 0.03 X10^3/uL; Basophil% 0.3 % (0-1); Eosinophil# 0.09 X10^3/uL; Eosinophils% 0.9 % (0-5); Hematocrit 37.6 % (37-47); Hemoglobin 11.8 g/dL (12.0-15.0); Lymphocyte # 1.58 X10^3/ul (0.83-4.51); Lymphocyte % 16.6 % (19-41); Mean Corp Hgb Conc 31.4 g/dL (32-36); Mean Corpuscular Hgb 26.5 pg (27.0-32.0); Mean Corpuscular Volume 84.3 fL (81-99); Mean Platelet Vol. 10.9 fl (6.2-12.0); Monocyte# 0.65 X10^3/uL; Monocyte% 6.8 % (0-10); NRBC Flagged by Analyzer 0 % (0-5); Neutrophil # 7.17 X10^3/uL (2.7-7.7); Neutrophil % 75.2 % (47-70); Platelet Count 322 K/mm3 (150-450); RBC Distribution Width SD 39.4 fl (35.1-43.9); Red Blood Count 4.46 M/mm3 (4.2-5.4); White Blood Count 9.5 K/mm3 (4.4-11.0)
[2024-07-03 19:25] LABS: AST(SGOT) 13 U/L (15-37); Alanine Aminotransfer ALT/SGPT 18 U/L (13-56); Albumin, Serum 3.7 g/dL (3.2-5.0); Alkaline Phosphatase 128 U/L (45-117); Anion Gap 5 (5-15); BUN 11 mg/dL (7-18); BUN/Creat Ratio 13.2 RATIO (10-20); Calcium,Total 9.2 mg/dL (8.5-10.1); Chloride 111 mmol/L (98-107); Creatinine, Serum 0.83 mg/dL (0.55-1.02); EST Glomerular Filtration Rate 89 mL/min (>60); Est Glom Filt Rate - Afr Amer 107 mL/min (>60); Estimated Creatinine Clearance 89.17 ml/min; Globulin 3.7 g/dL (2.2-4.2); Glucose 91 mg/dL (74-106); Lipase 18 U/L (13-75); Potassium 3.4 mmol/L (3.5-5.1); Protein, Total 7.4 g/dL (6.4-8.2); Sodium Level 142 mmol/L (136-145)
[2024-07-03] MEDS: 0.9% Normal Saline (1000mL) 1,000 ML 999 ML IV (19:26)
[2024-07-03] MEDS: Ondansetron 4 MG/2 ML Vial IV (19:26)
[2024-07-03 20:05] LABS: Color, Urine Yellow (Yellow); Glucose, Dipstick Normal (Normal); Ketone-Dipstick Negative (Negative); Leukocyte Esterase-Dipstick 100 /ul (Negative); Nitrite-Dipstick Negative (Negative); Occult Blood-Urine Negative /ul (Negative); Protein-Dipstick 15 mg/dl (Negative); Specific Gravity, Urine 1.015 (1.002-1.030); Urine Bilirubin Dipstick Negative (Negative); Urine Clarity Cloudy (Clear); Urine Urobilinogen 1 mg/dl (Normal); Urine pH 6.5 (5.0 - 8.0)
[2024-07-03 20:09] LABS: Internal QC Validated? YES +Cl - CLEAR BKGD; Pregnancy, Urine Negative Negative; Record Kit Lot#,Urine Preg 772476
[2024-07-03 20:11] LABS: Bacteria 4+ /hpf (None Seen); Mucous, Urine 1+ /hpf (<or=2+); Squamous Epithelial Cells - UA 0-5 SEEN /hpf (5-10)
[2024-07-03 20:12] LABS: Red Blood Cells-Urine 0-5 SEEN /hpf (0-5); White Blood Cells 0-5 SEEN /hpf (0-5)
[2024-07-03 20:30] VITALS: BP 117/81; PULSE 92; RESP 16; TEMP 36.7; O2SAT 99
[2024-07-03] MEDS: Phenazopyridine 95 MG Tablet 190 MG PO (20:47)
[2024-07-03] MEDS: Nitrofurantoin Macrocrystals 100 MG Capsule PO (20:47)
[2024-07-03] MEDS: hydrOXYzine PAM 25 MG Capsule PO (20:56)
== END 2024-07-03 20:58 | disposition home or self-care (01) ==
PROVIDERS: Nurse Practitioner; Emergency Provider Emergency Medicine; Visit Provider Emergency Medicine
DX: N39.0 Urinary tract infection, site not specified (principal); F17.220 Nicotine dependence, chewing tobacco, uncomplicated; F41.9 Anxiety disorder, unspecified; J45.909 Unspecified asthma, uncomplicated
CPT/HCPCS: 80053; 81001; 81025; 83690; 85025; 87086; 87088; 96361; 96374; 99283; J7030; A4216; J2405

== ENCOUNTER 2024-07-20 03:26 | Emergency (ER) | payer MEDICAID, SELFPAY ==
[2024-07-20 03:26] VITALS: BP 135/95; PULSE 66; RESP 18; TEMP 36.8; O2SAT 97; BMI 27.6
[2024-07-20] MEDS: Lidocaine 1% (20 ml mdv) 20 ML Vial 10 ML INFILT (03:49)
--- NOTE | 2024-07-20 03:53 | EDS_ITS ---
HPI History of Present Illness Chief Complaint: Other, Pain/Inj Detail of Chief Complaint: Left lower last molar dental pain Informant: patient Onset/Context/Timing Onset: Days Context: Gradual Onset Timing: Continuous Current Severity: Moderate Maximum Severity: Moderate Relieved by: NSAIDs Associated Symptoms Assocated Symptom - Dental: Negative for fever, jaw swelling, face swelling, cold sensitivity or hot sensitivity Narrative Narrative: 24-year-old female who fractured left lower molar 2 months ago. Initially her was feeling better and in the last several days she has had increased pain and mild swelling. No fever. No trouble swallowing or breathing. Prior similar symptoms: Yes Recent Illness/Hospitalization: No PFSH PFSH Medical History Migraines Asthma SVT (supraventricular tachycardia) Home Medications ?Medication ?Instructions ?Recorded ?Last Taken ?Type acetaminophen 325 mg tablet 650 mg (2 x 325 mg) PO Q6H PRN PRN 03/08/24 Unknown Rx Pain 1-5/10 or Fever #0 tabs clindamycin HCl 150 mg capsule 150 mg PO Q6H 10 days #40 caps 07/20/24 Unknown Rx Allergy/AdvReac Type Severity Reaction Status Date / Time diphenhydramine (From Allergy CHILDHOOD Verified 07/20/24 03:29 Benadryl) ALLERGY Penicillins (PCN) Allergy CHILDHOOD Verified 07/20/24 03:29 ALLERGY Surgical History History of Social History household members: family Smoking Status: Current every day smoker tobacco type: smokeless tobacco ROS ROS ED ROS Narrative Denies recent illness. Constitutional Constitutional ED: Denies chills or fever(s) Eyes Eyes: Denies blurry vision ENT ENT ED: Denies ear pain, rhinorrhea or sore throat Cardiovascular Cardiovascular: Denies chest pain Respiratory/Chest Respiratory/Chest: Denies cough or dyspnea Gastrointestinal Gastrointestinal: Denies abdominal pain Genitourinary Genitourinary ED: Denies dysuria or hematuria Musculoskeletal Musculoskeletal: Denies arthralgias, back pain, myalgias or neck pain Integumentary Denies abscess or Abrasions Neurologic Neurologic: Denies headache(s) Psychiatric Psychiatric: Denies anxiety Endocrine Endocrinology: Denies cold intolerance Hematologic/Lymphatic Hematologic/Lymphatic: Denies easy bleeding Allergic/Immunologic Allergic/Immunologic ED: Denies mouth swelling, tongue swelling or urticaria EXAM Physical Exam Narrative Exam Narrative: 24-year-old female no acute distress. H EENT exam left lower molar about half the tooth is missing from a prior fracture. There is minimal swelling. No drainable abscess. Tender to touch. Her face and jaw does not appear to be swollen. She has no trouble opening and closing her mouth. No trismus. No swelling inside her mouth. No posterior pharynx is normal. Neck nontender no lymphadenopathy. Lungs clear. Heart regular rhythm. Otherwise exam unremarkable. Const Vital Signs: 07/20/24 03:26 Temperature 98.3 F Temperature Source Oral Pulse Rate 66 Respiratory Rate 18 Blood Pressure 135/95 H Blood Pressure Mean 108 Pulse Ox 97 Oxygen Delivery Method Room Air Positive well nourished and well developed; Negative for cachectic, contractures or unkempt General Appearance ED: well developed and NAD; Negative for unkempt, cachectic, contractures or pallor Nutritional Appearance: Negative for cachectic HEENT HEENT Narrative: Left last molar fractured. Minimal swelling. No abscess. No trismus. No trouble swallowing or breathing. Negative for trauma or tenderness Face and Sinus: sinuses nontender Mouth ED: Yes oral and palatal mucosa normal, Yes lips normal, Yes tongue normal and Yes salivary gland normal Mouth: oral and palatal mucosa normal, lips normal, tongue normal and salivary gland normal Teeth and Gingiva: abnormal tooth and associated gingiva Throat: posterior oropharynx normal Eyes PERRL and EOMs intact bilaterally General Eye ED: Negative for pale conjunctiva or scleral icterus Neck no lymphadenopathy, supple and no JVD General: normal visual inspection; Negative for anterior neck swelling, tenderness or submandibular swelling Lymph Lymphatic: no lymphadenopathy noted Chest Wall inspection of chest normal and palpation of chest normal Resp normal respiratory effort, no retractions and clear to auscultation bilaterally Cardio regular rate, regular rhythm, S1 normal heart sound, S2 normal heart sound and no murmurs Palpation: Negative for palpable S3 or palpable S4 Rate: Negative for bradycardia or tachycardic Rhythm: Negative for abnormal rhythm GI normal to inspection, nondistended, normoactive bowel sounds, non-tender, non- distended and no masses Inspection: Negative for other Palpation: soft Back/Spine no CVA tenderness General Back: Negative for CVA tenderness Cervical Spine: Negative for other Thoracic Spine / Upper Back: Negative for thoracic spinal tenderness, paraspinal muscle tenderness or paraspinal muscle spasm Extremity normal to inspection General Extremety ED: Negative for edema General Extremity: Negative for edema Neuro oriented x3, CN's II-XII intact bilaterally, moves all extremities and no focal motor deficits Sensorium / Orientation: alert, oriented to person, oriented to place and oriented to time; Negative for orientation impaired Gait (Neuro): Negative for normal gait Motor Exam: strength 5/5 throughout; Negative for general weakness, strength abnormal or muscle tone abnormal Psych mental status grossly normal Appearance: Negative for unkempt Attitude: No agitated and No other Mood & Affect: Negative for depressed, anxious or tearful Skin no rashes or lesions noted and no wounds General Skin Exam: Negative for pallor Image ED - URI/Dental Diagram: 2 1. Left, lower, last molar fractured. Tender. Minimal swelling. No abscess. MDM MDM MDM Narrative Medical decision making narrative: 24-year-old female left lower molar fracture, cavity and minimal gingival swelling. Tender to palpation. No drainable abscess. Area was locally anesthetized using 5 cc of 1% plain lidocaine. Patient tolerated well. Started getting relief within minutes. History & Record Review Discussion w/independent historian: Patient Procedures Other Procedures Procedure(s): Left lower, last molar dental block using 1% plain lidocaine. Patient tolerated well. Injected 5 cc at the base of the tooth. Discharge Plan Triage Chief Complaint: Other, Pain/Inj ED Provider: Marek Duggan Dx/Rx/DC Orders Clinical Impression: Pain, dental, Dental infection Instructions: ED Dental Pain Prescriptions: New clindamycin HCl 150 mg capsule 150 mg PO Q6H 10 Days Qty: 40 0RF No Action acetaminophen 325 mg Tablet 650 mg PO Q6H PRN PRN (Reason: Pain 1-5/10 or Fever) Qty: 0 0RF Primary Care Provider: Care Physician,No Primary Referrals: Care Physician,No Primary [Primary Care Provider] - Activity Restrictions/Additional Instructions: Ice to your jaw. Motrin and Tylenol for pain. Call your insurance and see what list of dentists they contract with. You can then call the dentist and see you can get in with. The antibiotic clindamycin 4 times a day for any possible dental infection Print Language: Azeri Disposition Disposition: Home, Self Care
[2024-07-20 03:55] VITALS: BP 136/78; PULSE 72; RESP 18; TEMP 36.8; O2SAT 100
== END 2024-07-20 03:55 | disposition home or self-care (01) ==
LOC: ED 03:50
PROVIDERS: Emergency Provider Emergency Medicine; Visit Provider Emergency Medicine
DX: K04.7 Periapical abscess without sinus (principal); S02.5XXA Fracture of tooth (traumatic), initial encounter for closed fracture; X58.XXXA Exposure to other specified factors, initial encounter; J45.909 Unspecified asthma, uncomplicated; F17.220 Nicotine dependence, chewing tobacco, uncomplicated
CPT/HCPCS: 64999; 99282

== ENCOUNTER 2024-09-27 09:29 | Emergency (ER) | payer MEDICAID, SELFPAY ==
[2024-09-27 09:30] VITALS: BP 148/95; PULSE 85; RESP 19; TEMP 35.7; O2SAT 97; BMI 25.7
--- NOTE | 2024-09-27 10:01 | US_ITS ---
STUDY: ABDOMINAL ULTRASOUND - RIGHT UPPER QUADRANT REASON FOR VISIT: Female, 24 years old right upper quadrant pain. TECHNIQUE: Ultrasound evaluation of the right upper quadrant was performed with real-time and static house-scale imaging. TECHNICAL QUALITY: Adequate. COMPARISON: Comparison is made with prior CT scan abdomen and pelvis dated March 06, 2024. FINDINGS: Liver: The liver measures 15 cm. There is normal echogenicity of the liver. The bile ducts are within normal limits. There is hepatic color flow. The direction of portal flow is hepatopetal. There is no demonstrated mass lesion. Gallbladder: Normal distended gallbladder. The gallbladder wall measures 2 mm. There is a positive sonographic Rothman''s sign. There is no pericholecystic fluid. There are multiple echogenic structures within the gallbladder, consistent with multiple gallstones. Common Bile Duct (C.B.D.): The common bile duct is dilated and measures 10 mm. Pancreas: Normal size of the head, body and tail of the pancreas. There is normal echogenicity of the pancreas. There is no demonstrated pancreatic mass or cyst. Right Kidney: Normal size of the right kidney. The right kidney measures 10.7 cm x 4.1 cm x 3.8 cm. Normal renal cortex. The right cortex measures 1.2 cm. There is no demonstrated renal mass or cyst. There is no right hydronephrosis. US/Gallbladder IMPRESSION: Multiple gallstones. Positive sonographic Rothman''s sign. Dilated common bile duct. Electronically Signed: Magen Manzanares MD at 11:58 EST ,
--- NOTE | 2024-09-27 10:02 | ED.VIS.GI ---
HPI HPI - GI History of Present Illness Chief Complaint: Nausea/Vomiting Narrative Narrative: 24-year-old female past surgical history of remote 2 years ago presents with nausea and vomiting and epigastric to right upper quadrant pain that she has had for the last 6 days. She states that she began feeling ill approximately 6 days ago. On Thursday, 4 days ago she tried to eat something but could not. She states that she has vomited multiple times in the last 24 hours, but denies any hematemesis. She is only vomiting acid. She complains of epigastric to right upper quadrant pain, and it feels like someone is sucking her fingers up under her ribs in the right upper quadrant. No fevers or chills. No diarrhea. She has occasional abdominal cramping, but denies any dysuria or hematuria. She also states that she is having muscle spasms in her back. [facility] Medical History Migraines Asthma SVT (supraventricular tachycardia) Home Medications ?Medication ?Instructions ?Recorded ?Last Taken ?Type acetaminophen 325 mg tablet 650 mg (2 x 325 mg) PO Q6H PRN PRN 03/08/24 Unknown Rx Pain 1-5/10 or Fever #0 tabs clindamycin HCl 150 mg capsule 150 mg PO Q6H 10 days #40 caps 07/20/24 Unknown Rx Allergy/AdvReac Type Severity Reaction Status Date / Time diphenhydramine (From Allergy CHILDHOOD Verified 07/20/24 03:29 Benadryl) ALLERGY Penicillins (PCN) Allergy CHILDHOOD Verified 07/20/24 03:29 ALLERGY Surgical History History of Social History household members: family Smoking Status: Current every day smoker tobacco type: smokeless tobacco ROS ROS ED ROS Narrative Constitutional: No fever, no chills. HEENT: No sore throat. No neck pain. No loss of vision. No rhinorrhea. Cardiovascular: No chest pain. No palpitations. No pedal edema. Respiratory: No cough, no shortness of breath. Abdominal: Epigastric to right upper quadrant abdominal pain. Multiple episodes of nausea and vomiting, no hematemesis, no diarrhea. Genitourinary: No dysuria. No hematuria. Musculoskeletal: Positive low back pain and spasming. No arthralgias. Neurologic: No headaches. No dizziness. No lightheadedness. Skin: No rash. No change in color. Psychiatric: No depression. No anxiety. EXAM Physical Exam Const Vital Signs: 09/27/24 09:30 09/27/24 10:00 Temperature 96.3 F L Temperature Source Temporal Pulse Rate 85 Respiratory Rate 19 H Respiratory Effort Normal Respiratory Pattern Normal Blood Pressure 148/95 H Blood Pressure Mean 112 Pulse Ox 97 Oxygen Delivery Method Room Air MDM MDM MDM Narrative Medical decision making narrative: Differential diagnosis includes but not limited to gastritis versus cholecystitis versus pancreatitis. I did review her triage note as well, and she may also have cannabis induced hyperemesis. Patient administered ondansetron for nausea. I do feel that gallbladder imaging is indicated. I will also obtain CBC, CMP, and lipase to look for dehydration or other electrolyte abnormality. I reviewed her laboratory work and she has normal white count of 6.8, hemoglobin normal at 13.2, hematocrit 41.2, platelet count normal at 383. Review of her CMP shows normal sodium of 141 with potassium 3.6, chloride 107. AST low at 14 with normal ALT. Lipase is also normal at 21. I was informed by the RN that the patient wanted to sign out AGAINST MEDICAL ADVICE because she did not want to stay any longer. This was prior to the results of her gallbladder ultrasound. However, I have low suspicion for cholecystitis as she does not have a fever or white count. Patient may have eloped prior to formal signing out AGAINST MEDICAL ADVICE. She was in stable condition. History & Record Review Discussion w/independent historian: Patient Lab Data Attestation: I reviewed the patient's lab results. Labs: Laboratory Results - last 24 hr 09/27/24 09/27/24 10:15 10:48 WBC 6.8 RBC 4.90 Hgb 13.2 Hct 41.2 MCV 84.1 MCH 26.9 L MCHC 32.0 RDW Std Deviation 41.9 RDW Coeff of Jessica 13.7 Plt Count 383 MPV 10.9 Immature Gran % (Auto) 0.300 Neut % (Auto) 61.8 Lymph % (Auto) 23.5 [place] % (Auto) 11.4 H Eos % (Auto) 2.3 Baso % (Auto) 0.7 Absolute Neuts (auto) 4.2 Absolute Lymphs (auto) 1.60 Nucleated RBC % 0 Sodium 141 Potassium 3.6 Chloride 107 Carbon Dioxide 26.0 Anion Gap 9 BUN 16 Creatinine 0.91 Estim Creat Clear Calc 79.66 Est GFR (MDRD) Af Amer 97 Est GFR (MDRD) Non-Af 80 BUN/Creatinine Ratio 17.6 Glucose 101 Calcium 9.8 Total Bilirubin 0.60 AST 14 L ALT 23 Alkaline Phosphatase 138 H Total Protein 8.3 H Albumin 4.6 Globulin 3.7 Albumin/Globulin Ratio 1.2 Lipase 21 Serum , Qual NEGATIVE Urine Color Yellow Urine Clarity Cloudy Urine pH 6.0 Ur Specific [place] 1.020 Urine Protein 30 H Urine Glucose (UA) Normal Urine Ketones 5 H Urine Occult Blood Negative Urine Nitrite Negative Urine Bilirubin 1 H Urine Urobilinogen 4 H Ur Leukocyte Esterase 500 H Urine RBC 0 SEEN Urine WBC 10-25 SEEN Ur Squamous Epith Cells 5-10 SEEN Urine Bacteria 2+ Urine Mucus 3+ Radiography Diagnostic Testing: Clinical Impression(s) from Imaging Studies Gallbladder Ultrasound 09/27/24 10:01 IMPRESSION: Multiple gallstones. Positive sonographic Rothman''s sign. Dilated common bile duct. Electronically Signed: Magen Manzanares MD at 11:58 EST , Discharge Plan Triage Chief Complaint: Nausea/Vomiting Other Complaint: Weakness ED Provider: Shakir England Dx/Rx/DC Orders Clinical Impression: Abdominal pain, Nausea and vomiting, Common bile duct dilatation, Gallstones Prescriptions: No Action acetaminophen 325 mg Tablet 650 mg PO Q6H PRN PRN (Reason: Pain 1-5/10 or Fever) Qty: 0 0RF clindamycin HCl 150 mg capsule 150 mg PO Q6H 10 Days Qty: 40 0RF Primary Care Provider: Care Physician,No Primary Referrals: Care Physician,No Primary [Primary Care Provider] - Print Language: Bermudian Disposition Disposition: Elopement Discharge Date/Time: 09/27/24 11:51
[2024-09-27] MEDS: 0.9% Normal Saline (1000mL) 1,000 ML 999 ML IV (10:19)
[2024-09-27] MEDS: Ondansetron 4 MG/2 ML Vial IV (10:19)
[2024-09-27 10:29] LABS: Absolute Neutrophil Count 4.2 X10^3/uL (2.0-7.7); Basophil# 0.05 X10^3/uL; Basophil% 0.7 % (0-1); Eosinophil# 0.16 X10^3/uL; Eosinophils% 2.3 % (0-5); Hematocrit 41.2 % (37-47); Hemoglobin 13.2 g/dL (12.0-15.0); Lymphocyte % 23.5 % (19-41); Mean Corpuscular Hgb 26.9 pg (27.0-32.0); Mean Corpuscular Volume 84.1 fL (81-99); Mean Platelet Vol. 10.9 fl (6.2-12.0); Monocyte# 0.78 X10^3/uL; Monocyte% 11.4 % (0-10); NRBC Flagged by Analyzer 0 % (0-5); Neutrophil # 4.21 X10^3/uL (2.7-7.7); Neutrophil % 61.8 % (47-70); Platelet Count 383 K/mm3 (150-450); RBC Distribution Width CV 13.7 % (11.6-14.6); RBC Distribution Width SD 41.9 fl (35.1-43.9); White Blood Count 6.8 K/mm3 (4.4-11.0)
[2024-09-27 10:48] LABS: Internal QC Validated? YES +Cl - CLEAR BKGD; Pregnancy, Serum, hCG Quali. NEGATIVE Negative
[2024-09-27 10:52] LABS: Red Blood Cells-Urine 0 SEEN /hpf (0-5)
[2024-09-27 10:55] LABS: ALB/GLOB Ratio 1.2 RATIO (0.9-2.4); AST(SGOT) 14 U/L (15-37); Alanine Aminotransfer ALT/SGPT 23 U/L (13-56); Albumin, Serum 4.6 g/dL (3.2-5.0); Alkaline Phosphatase 138 U/L (45-117); Anion Gap 9 (5-15); BUN 16 mg/dL (7-18); BUN/Creat Ratio 17.6 RATIO (10-20); Calcium,Total 9.8 mg/dL (8.5-10.1); Chloride 107 mmol/L (98-107); Creatinine, Serum 0.91 mg/dL (0.55-1.02); EST Glomerular Filtration Rate 80 mL/min (>60); Est Glom Filt Rate - Afr Amer 97 mL/min (>60); Estimated Creatinine Clearance 79.66 ml/min; Globulin 3.7 g/dL (2.2-4.2); Glucose 101 mg/dL (74-106); Lipase 21 U/L (13-75); Potassium 3.6 mmol/L (3.5-5.1); Protein, Total 8.3 g/dL (6.4-8.2); Sodium Level 141 mmol/L (136-145)
[2024-09-27 10:55] LABS: Color, Urine Yellow (Yellow); Glucose, Dipstick Normal (Normal); Ketone-Dipstick 5 mg/dl (Negative); Leukocyte Esterase-Dipstick 500 /ul (Negative); Nitrite-Dipstick Negative (Negative); Occult Blood-Urine Negative /ul (Negative); Protein-Dipstick 30 mg/dl (Negative); Urine Clarity Cloudy (Clear); Urine Urobilinogen 4 mg/dl (Normal)
[2024-09-27 10:57] LABS: Urine Bilirubin Dipstick 1 mg/dL (Negative)
[2024-09-27 11:00] LABS: Bacteria 2+ /hpf (None Seen); Mucous, Urine 3+ /hpf (<or=2+); Squamous Epithelial Cells - UA 5-10 SEEN /hpf (5-10); White Blood Cells 10-25 SEEN /hpf (0-5)
--- NOTE | 2024-09-27 11:20 | ED.RN ---
RN CALLED TO THE ROOM, PT STATES I HAVE TO LEAVE CANNOT WAIT. TOLD PT SHE COULD SIGN OUT AMA. PT SIGNS AMA. DR. CALDERON AWARE.
== END 2024-09-27 11:51 | disposition left against medical advice (07) ==
LOC: ED 11:07
PROVIDERS: Emergency Provider Emergency Medicine; Visit Provider Emergency Medicine
DX: K80.20 Calculus of gallbladder without cholecystitis without obstruction (principal); K83.8 Other specified diseases of biliary tract; R53.1 Weakness; F17.290 Nicotine dependence, other tobacco product, uncomplicated
CPT/HCPCS: 76705; 80053; 81001; 83690; 84703; 85025; 96361; 96374; 99284; J7030; A4216; J2405

== ENCOUNTER 2024-10-02 05:40 | Emergency (ER) | payer MEDICAID, SELFPAY ==
[2024-10-02 05:40] VITALS: BP 138/95; PULSE 85; RESP 18; TEMP 36.9; O2SAT 98; BMI 28.3
--- NOTE | 2024-10-02 05:51 | EDS_ITS ---
HPI History of Present Illness Chief Complaint: Upper Extremity Injury Informant: patient Narrative Narrative: I punched a car and then I fell on a hammer. Patient states she was upset and she punched a car, and then she ran off and accidentally tripped and fell, her frontal scalp landing incidentally on a hammer's sharp back and that is used to remove nails, the hammer was lying on the ground nearby where she tripped. She sustained a laceration and some b leeding from there. She is concerned she may have broken her hand. She is right-hand dominant. No other injuries. She denies any systemic symptoms from hitting her head or concerned about the bleeding and injury/laceration. [facility] Medical History Migraines Asthma SVT (supraventricular tachycardia) Home Medications ?Medication ?Instructions ?Recorded ?Last Taken ?Type acetaminophen 325 mg tablet 650 mg (2 x 325 mg) PO Q6H PRN PRN 03/08/24 Unknown Rx Pain 1-5/10 or Fever #0 tabs clindamycin HCl 150 mg capsule 150 mg PO Q6H 10 days #40 caps 07/20/24 Unknown Rx Allergy/AdvReac Type Severity Reaction Status Date / Time diphenhydramine (From Allergy CHILDHOOD Verified 07/20/24 03:29 Benadryl) ALLERGY Penicillins (PCN) Allergy CHILDHOOD Verified 07/20/24 03:29 ALLERGY Surgical History History of Social History household members: family Smoking Status: Current every day smoker tobacco type: smokeless tobacco ROS ROS ED Constitutional Constitutional ED: Denies chills or fever(s) Eyes Eyes: Denies blurry vision, change in vision or diplopia Gastrointestinal Gastrointestinal: Denies nausea or vomiting Musculoskeletal Musculoskeletal: Reports extremity pain; Denies neck pain Integumentary Reports wounds; Denies Abrasions or rash Neurologic Neurologic: Denies headache(s), paresthesias or weakness EXAM Physical Exam Const Vital Signs: 10/02/24 05:40 Temperature 98.5 F Temperature Source Oral Pulse Rate 85 Respiratory Rate 18 Blood Pressure 138/95 H Blood Pressure Mean 109 Pulse Ox 98 Oxygen Delivery Method Room Air Positive well nourished and well developed General Appearance ED: well developed and NAD HEENT HEENT Narrative: There is a partial-thickness 2 cm scalp laceration frontal without associated hematoma, crepitance, depression. No other HEENT injury. No signs of a basilar skull fracture. normocephalic Neck full ROM and supple Back/Spine normal ROM and normal to inspection Extremity Extremity Narrative: Tenderness to the MCPJ and PIPJ of fingers 3-5 on the right hand. No deformities. Painful to extend but able, there is no rotational deformity when she bends fingers into her palm, FDS, FDP's are intact throughout as are the extensors. She also has some tenderness at the base of the third metacarpal but her wrist moves without issue and she is nontender to carpus or distal radius. Neuro oriented x3, no focal motor deficits and no sensory deficits noted Sensorium / Orientation: alert Psych mental status grossly normal and thought process normal Skin Skin Narrative: 2 cm frontal scalp laceration see above. Clean, mostly linear, partial- thickness. Rashes: no rashes MDM MDM MDM Narrative Medical decision making narrative: The scalp laceration is partial-thickness, if she chose to have it not repaired I think it would be fine but probably be more annoying with regards to bleeding and healing, so I offered repairing it with 2 gisselle which I think is most reasonable and my recommendation. She was undecided, so I offered to put some let on it while we obtain an x-ray of her right hand which she was agreeable to. However, before obtaining the x-ray, the patient eloped. Discharge Plan Triage Chief Complaint: Upper Extremity Injury ED Provider: Yannick Singh Dx/Rx/DC Orders Clinical Impression: Injury of right hand, Laceration of scalp, Fall from slip, trip, or stumble Prescriptions: No Action acetaminophen 325 mg Tablet 650 mg PO Q6H PRN PRN (Reason: Pain 1-5/10 or Fever) Qty: 0 0RF clindamycin HCl 150 mg capsule 150 mg PO Q6H 10 Days Qty: 40 0RF Primary Care Provider: Care Physician,No Primary Referrals: Care Physician,No Primary [Primary Care Provider] - Print Language: Argentine Disposition Disposition: Elopement Discharge Date/Time: 10/02/24 06:18
--- NOTE | 2024-10-02 06:11 | ED.RN ---
PT WALKED OUTSIDE , SAID WHERE IS MY BF? AND LEFT OUTSIDE DOORS.
== END 2024-10-02 06:18 | disposition left against medical advice (07) ==
LOC: ED 06:17
PROVIDERS: Emergency Provider Emergency Medicine; Visit Provider Emergency Medicine
DX: S01.01XA Laceration without foreign body of scalp, initial encounter (principal); X79.XXXA Intentional self-harm by blunt object, initial encounter; W18.09XA Striking against other object with subsequent fall, initial encounter; N39.0 Urinary tract infection, site not specified; S60.511A Abrasion of right hand, initial encounter; S60.311A Abrasion of right thumb, initial encounter; Z23 Encounter for immunization; J45.909 Unspecified asthma, uncomplicated; F17.290 Nicotine dependence, other tobacco product, uncomplicated; Z86.59 Personal history of other mental and behavioral disorders
CPT/HCPCS: 70450; 73080; 73130; 80053; 80307; 81001; 82077; 84443; 84703; 85025; 87077; 87086; 87088; 87186; 90471; 90715; 99282; 99284

== ENCOUNTER 2024-10-02 14:16 | Emergency (ER) | payer SELFPAY ==
[2024-10-02 14:19] VITALS: BP 137/87; PULSE 98; RESP 18; TEMP 36.4; O2SAT 96; BMI 26.9
[2024-10-02] MEDS: Ondansetron ODT 4 MG Tablet PO (14:57)
[2024-10-02] MEDS: Acetaminophen 500 MG Tablet 1000 MG PO (14:57)
[2024-10-02 14:58] LABS: Absolute Lymphocyte Count 1.67 X10^3/uL (0.83-4.51); Absolute Neutrophil Count 6.8 X10^3/uL (2.0-7.7); Basophil# 0.03 X10^3/uL; Basophil% 0.3 % (0-1); Eosinophil# 0.16 X10^3/uL; Eosinophils% 1.6 % (0-5); Hematocrit 39.6 % (37-47); Hemoglobin 12.6 g/dL (12.0-15.0); Lymphocyte # 1.67 X10^3/ul (0.83-4.51); Lymphocyte % 17.2 % (19-41); Mean Corp Hgb Conc 31.8 g/dL (32-36); Mean Corpuscular Hgb 26.6 pg (27.0-32.0); Mean Corpuscular Volume 83.7 fL (81-99); Mean Platelet Vol. 10.9 fl (6.2-12.0); Monocyte# 1.04 X10^3/uL; Monocyte% 10.7 % (0-10); NRBC Flagged by Analyzer 0 % (0-5); Neutrophil # 6.79 X10^3/uL (2.7-7.7); Neutrophil % 69.8 % (47-70); Platelet Count 313 K/mm3 (150-450); RBC Distribution Width CV 14.2 % (11.6-14.6); RBC Distribution Width SD 43.4 fl (35.1-43.9); Red Blood Count 4.73 M/mm3 (4.2-5.4); White Blood Count 9.7 K/mm3 (4.4-11.0)
[2024-10-02] MEDS: Diphth,Pertuss(Acell),Tet Vac 0.5 ML Vial IM (14:58)
[2024-10-02 14:59] LABS: Color, Urine Yellow (Yellow); Glucose, Dipstick Normal (Normal); Ketone-Dipstick 5 mg/dl (Negative); Leukocyte Esterase-Dipstick 500 /ul (Negative); Nitrite-Dipstick Positive (Negative); Occult Blood-Urine 50 /ul (Negative); Protein-Dipstick 100 mg/dl (Negative); Specific Gravity, Urine 1.015 (1.002-1.030); Urine Bilirubin Dipstick Negative (Negative); Urine Clarity Cloudy (Clear); Urine Urobilinogen 1 mg/dl (Normal)
[2024-10-02 15:08] LABS: Squamous Epithelial Cells - UA 10-25 SEEN /hpf (5-10); White Blood Cells >100 SEEN /hpf (0-5)
[2024-10-02 15:09] LABS: Bacteria 3+ /hpf (None Seen); Mucous, Urine 2+ /hpf (<or=2+); Red Blood Cells-Urine 5-10 SEEN /hpf (0-5)
[2024-10-02 15:12] LABS: Internal QC Validated? YES +Cl - CLEAR BKGD; Pregnancy, Serum, hCG Quali. NEGATIVE Negative; Record Kit Lot#, Serum Preg. 869294
[2024-10-02 15:16] LABS: Alcohol, Blood (Medical)-Serum < 3.0 mg/dL
[2024-10-02 15:27] LABS: ALB/GLOB Ratio 1.2 RATIO (0.9-2.4); AST(SGOT) 20 U/L (15-37); Alanine Aminotransfer ALT/SGPT 24 U/L (13-56); Albumin, Serum 4.3 g/dL (3.2-5.0); Alkaline Phosphatase 128 U/L (45-117); Anion Gap 6 (5-15); BUN 10 mg/dL (7-18); BUN/Creat Ratio 13.2 RATIO (10-20); Calcium,Total 9.2 mg/dL (8.5-10.1); Chloride 112 mmol/L (98-107); Creatinine, Serum 0.76 mg/dL (0.55-1.02); EST Glomerular Filtration Rate 99 mL/min (>60); Est Glom Filt Rate - Afr Amer 120 mL/min (>60); Globulin 3.6 g/dL (2.2-4.2); Glucose 99 mg/dL (74-106); Potassium 3.2 mmol/L (3.5-5.1); Protein, Total 7.9 g/dL (6.4-8.2); Sodium Level 140 mmol/L (136-145)
[2024-10-02 15:29] LABS: Amphetamine Urine VISTA NEGATIVE (<1000 ng/mL); Barbiturate Urine VISTA NEGATIVE (< 200 ng/mL); Benzodiazepine Urine VISTA NEGATIVE (< 200 ng/mL); Cocaine Urine VISTA NEGATIVE (< 300 ng/mL); Ecstacy Urine VISTA NEGATIVE (< 500 ng/mL); Methadone Urine VISTA NEGATIVE (< 300 ng/mL); PCP Urine VISTA NEGATIVE (< 25 ng/mL); THC Urine VISTA POSITIVE (< 50 ng/mL); Vista UDS pH Range 6
[2024-10-02 16:16] VITALS: BP 132/77; PULSE 67; RESP 16; O2SAT 98
[2024-10-02 16:48] VITALS: BP 132/77; PULSE 64; RESP 16; TEMP 36.3; O2SAT 98
== END 2024-10-02 16:51 | disposition home or self-care (01) ==
PROVIDERS: Emergency Provider Emergency Medicine; Visit Provider Emergency Medicine
DX: N39.0 Urinary tract infection, site not specified (principal); X79.XXXA Intentional self-harm by blunt object, initial encounter; S00.01XA Abrasion of scalp, initial encounter; S60.511A Abrasion of right hand, initial encounter; S60.311A Abrasion of right thumb, initial encounter; Z23 Encounter for immunization; F17.220 Nicotine dependence, chewing tobacco, uncomplicated; Z86.59 Personal history of other mental and behavioral disorders
CPT/HCPCS: 70450; 73080; 73130; 80053; 80307; 81001; 82077; 84443; 84703; 85025; 87077; 87086; 87088; 87186; 90471; 90715; 99284

== ENCOUNTER 2024-10-22 20:35 | Emergency (ER) | payer MEDICAID, SELFPAY ==
[2024-10-22 20:36] VITALS: BP 149/100; PULSE 80; RESP 18; TEMP 36.2; O2SAT 100; BMI 27.7
[2024-10-22 21:04] LABS: Red Blood Cells-Urine 0 SEEN /hpf (0-5)
--- NOTE | 2024-10-22 21:10 | EDS_ITS ---
HPI History of Present Illness Chief Complaint: Flank Pain Informant: patient Narrative Narrative: Current left flank pain and urine frequency since yesterday. No fevers. No nausea or vomiting. Last menstrual period a month ago. 3 weeks ago seen in the ED for mental health evaluation found to have UTI positive for E. coli. She was discharged reported sent home with antibiotics have did not go to her pharmacy. She went to another ED she was given Keflex every 6 hours for which she stated she took 7 days course which helped her symptoms. History of kidney infection in the past. Allergy to penicillin. Prior similar symptoms: Yes PFSH PFSH Medical History UTI (urinary tract infection) Migraines Asthma SVT (supraventricular tachycardia) Home Medications ?Medication ?Instructions ?Recorded ?Last Taken ?Type cefdinir 300 mg capsule 300 mg PO Q12H #14 caps 10/22/24 Unknown Rx ibuprofen 600 mg tablet 600 mg PO Q6H PRN PRN pain #20 10/22/24 Unknown Rx TABLETS Allergy/AdvReac Type Severity Reaction Status Date / Time diphenhydramine (From Allergy CHILDHOOD Verified 10/22/24 20:36 Benadryl) ALLERGY Penicillins (PCN) Allergy CHILDHOOD Verified 10/22/24 20:36 ALLERGY Surgical History History of Social History household members: family Smoking Status: Current every day smoker tobacco type: smokeless tobacco ROS ROS ED Constitutional Constitutional ED: Denies chills, fever(s) or sweats Eyes Eyes: Denies change in vision ENT ENT ED: Denies dysphagia or sore throat Cardiovascular Cardiovascular: Denies chest pain, leg edema, palpitations or racing heartbeat Respiratory/Chest Respiratory/Chest: Denies cough, dyspnea or dyspnea on exertion Gastrointestinal Gastrointestinal: Denies abdominal pain, diarrhea, nausea or vomiting Genitourinary Genitourinary ED: Reports urinary frequency; Denies dysuria or hematuria Musculoskeletal Musculoskeletal: Reports back pain; Denies extremity pain or neck pain Integumentary Denies rash or wounds Neurologic Neurologic: Denies headache(s), paresthesias or weakness EXAM Physical Exam Const Vital Signs: 10/22/24 20:36 Temperature 97.2 F L Temperature Source Temporal Pulse Rate 80 Respiratory Rate 18 Blood Pressure 149/100 H Blood Pressure Mean 116 Pulse Ox 100 Oxygen Delivery Method Room Air Positive well nourished and well developed General Appearance ED: well developed and NAD HEENT Reports moist mucous membranes HEENT Narrative: Residual healing bruise above left eyelid. normocephalic Eyes EOMs intact bilaterally and conjunctivae normal General Eye ED: Yes normal appearance of both eyes Neck no lymphadenopathy and supple General: Negative for tenderness Chest Wall Chest: Negative for tenderness Resp normal respiratory effort and normal air movement Effort and Inspection: symmetric chest movement; Negative for respiratory distress Cardio regular rate, regular rhythm and no murmurs Peripheral Pulses: pulses 2+ throughout GI normal to inspection, nondistended, normoactive bowel sounds and non-tender Palpation: Negative for guarding or rebound tenderness present Back/Spine no thoracic nor lumbar tenderness Back/Spine Narrative: Mild tenderness left flank Extremity normal to inspection General Extremety ED: Negative for edema or tenderness General Extremity: Negative for edema Neuro oriented x3 and no sensory deficits noted Sensorium / Orientation: awake and alert Skin no rashes or lesions noted and no wounds MDM MDM MDM Narrative Medical decision making narrative: Interventions / MDM: Differential diagnosis: Complicated UTI Diagnosis considered but do not suspect: No clinical presentation for kidney stones My EKG interpretation: N/A Imaging independently reviewed and interpreted by myself: N/A External documents reviewed: Urine culture 10/02/2024 E. coli pansensitive except for resistance to ampicillin Test considered but not ordered:N/A ED course: Nontoxic vital stable. Left flank pain with urine frequency. Will send for urine, hCG urine culture. Urine positive for infection. She will be treated for complicated UTI. hCG negative. She is nontoxic. Do not feel laboratory studies are required. Urine culture pending. She started on cefdinir and ibuprofen. Return precautions. Outpatient follow-up given. All questions were answered. Re-evaluation: stable Disposition discussed with patient/family/significant other: Patient and significant other Case discussed with consulting clinician: N/A This note was generated with [employer] dictation software. It may contain incorrect words, spelling, and punctuation that were not noted in checking the note before signing. Lab Data Attestation: I reviewed the patient's lab results. Labs: Laboratory Results - last 24 hr 10/22/24 20:58 Urine Color Yellow Urine Clarity Sl. Cloudy Urine pH 6.0 Ur Specific [place] 1.010 Urine Protein 100 H Urine Glucose (UA) Normal Urine Ketones Negative Urine Occult Blood 50 H Urine Nitrite Positive H Urine Bilirubin Negative Urine Urobilinogen Normal Ur Leukocyte Esterase 500 H Urine RBC 0 SEEN Urine WBC 50-100 SEEN Ur Squamous Epith Cells 5-10 SEEN Urine Bacteria 2+ Urine Mucus 1+ Urine Test Negative Discharge Plan Triage Chief Complaint: Flank Pain ED Provider: John Zhang Dx/Rx/DC Orders Clinical Impression: Complicated urinary tract infection, Flank pain Instructions: ED Pyelonephritis, Female (Adult) Prescriptions: New ibuprofen 600 mg tablet 600 mg PO Q6H PRN PRN (Reason: pain) Qty: 20 0RF cefdinir 300 mg capsule 300 mg PO Q12H Qty: 14 0RF Primary Care Provider: Care Physician,No Primary Referrals: America Ramírez MD [Med Staff - Divisional Merchandising Manager] - 1 Week Care Physician,No Primary [Primary Care Provider] - Activity Restrictions/Additional Instructions: Urine with infection urine culture sent. Take antibiotic as prescribed take Motrin as needed. Follow-up as an outpatient. Develop worsening symptoms not controlled medications, return to the ED for reevaluation. Print Language: Uzbek Disposition Disposition: Home, Self Care
[2024-10-22 21:12] LABS: Color, Urine Yellow (Yellow); Glucose, Dipstick Normal (Normal); Ketone-Dipstick Negative (Negative); Leukocyte Esterase-Dipstick 500 /ul (Negative); Nitrite-Dipstick Positive (Negative); Occult Blood-Urine 50 /ul (Negative); Protein-Dipstick 100 mg/dl (Negative); Urine Bilirubin Dipstick Negative (Negative); Urine Clarity Sl. Cloudy (Clear); Urine Urobilinogen Normal (Normal)
[2024-10-22 21:13] LABS: Internal QC Validated? YES +Cl - CLEAR BKGD; Pregnancy, Urine Negative Negative
[2024-10-22 21:23] LABS: White Blood Cells 50-100 SEEN /hpf (0-5)
[2024-10-22 21:24] LABS: Bacteria 2+ /hpf (None Seen); Mucous, Urine 1+ /hpf (<or=2+); Squamous Epithelial Cells - UA 5-10 SEEN /hpf (5-10)
[2024-10-22] MEDS: Ibuprofen 600 MG Tablet PO (21:47)
[2024-10-22 21:49] VITALS: BP 132/78; PULSE 78; RESP 16; TEMP 36.7; O2SAT 100
[2024-10-22] MEDS: Cefdinir 300 MG Capsule PO (21:51)
== END 2024-10-22 21:53 | disposition home or self-care (01) ==
PROVIDERS: Emergency Provider Emergency Medicine; Referring Provider Emergency Medicine; Visit Provider Emergency Medicine
DX: N39.0 Urinary tract infection, site not specified (principal); R10.9 Unspecified abdominal pain; Z88.0 Allergy status to penicillin; F17.220 Nicotine dependence, chewing tobacco, uncomplicated
CPT/HCPCS: 81001; 81025; 87086; 87088; 87186; 99282

== ENCOUNTER 2024-11-03 23:00 | Emergency (ER) | payer MEDICAID, SELFPAY ==
[2024-11-03 23:02] VITALS: BP 155/95; PULSE 98; RESP 16; TEMP 36.4; O2SAT 100; BMI 28.3
[2024-11-03 23:03] VITALS: BP 155/95; PULSE 98; RESP 16; TEMP 36.4; O2SAT 100
--- NOTE | 2024-11-04 00:07 | CT_ITS ---
EXAM: CT ABDOMEN AND PELVIS WITHOUT INTRAVENOUS CONTRAST CLINICAL INDICATION: flank pain TECHNIQUE: Helically acquired images were obtained of the abdomen and pelvis without intravenous contrast. This CT exam was performed using one or more of the following dose reduction techniques: automated exposure control, adjustment of the mA and/or kV according to patient size, and/or use of iterative reconstruction technique. RADIATION DOSE: CTDIvol = 6.38 mGy, DLP = 318.73 mGy-cm COMPARISON: No relevant prior studies available. FINDINGS: LOWER THORAX: Unremarkable. Lung bases are clear. No cardiomegaly. No significant pericardial effusion. ABDOMEN: LIVER: Unremarkable. Homogeneous. GALLBLADDER AND BILE DUCTS: Cholelithiasis. No gallbladder distention or wall edema. No intra- or extrahepatic biliary ductal dilation. PANCREAS: Unremarkable. No focal cystic mass. SPLEEN: Unremarkable. Normal size without focal cystic or solid mass. ADRENALS: Unremarkable. No nodules. KIDNEYS AND URETERS: Tiny nonobstructing calculus right kidney. Normal renal size and position. STOMACH AND BOWEL: Unremarkable. No stomach or bowel distention. No focal inflammatory change. PELVIS: APPENDIX: No evidence of acute appendicitis. BLADDER: Unremarkable. REPRODUCTIVE: Unremarkable as visualized. No mass. ABDOMEN and PELVIS: INTRAPERITONEAL SPACE: Unremarkable. No ascites or other fluid collection. No free air. BONES/JOINTS: Unremarkable. No suspicious lytic or blastic abnormality. SOFT TISSUES: Unremarkable. No discrete abdominal or pelvic wall hernia. VASCULATURE: Unremarkable. Abdominal aorta is non-dilated. LYMPH NODES: Unremarkable. No enlarged lymph nodes. CT/Abdomen/Pelvis without Cont IMPRESSION: 1. Cholelithiasis. 2. Tiny nonobstructing calculus right kidney. Electronically Signed: Florentin Godfrey MD at 1:35 EST ,
[2024-11-04 00:15] LABS: Bacteria 0 SEEN /hpf (None Seen); Mucous, Urine 0 SEEN /hpf (<or=2+); Red Blood Cells-Urine 0 SEEN /hpf (0-5); Squamous Epithelial Cells - UA 0 SEEN /hpf (5-10)
[2024-11-04 00:17] LABS: Color, Urine Yellow (Yellow); Glucose, Dipstick Normal (Normal); Ketone-Dipstick Negative (Negative); Leukocyte Esterase-Dipstick 500 /ul (Negative); Nitrite-Dipstick Negative (Negative); Occult Blood-Urine 250 /ul (Negative); Protein-Dipstick 15 mg/dl (Negative); Specific Gravity, Urine 1.005 (1.002-1.030); Urine Bilirubin Dipstick Negative (Negative); Urine Clarity Clear (Clear); Urine Urobilinogen Normal (Normal)
[2024-11-04 00:26] LABS: Absolute Lymphocyte Count 2.73 X10^3/uL (0.83-4.51); Absolute Neutrophil Count 5.9 X10^3/uL (2.0-7.7); Basophil# 0.04 X10^3/uL; Basophil% 0.4 % (0-1); Eosinophil# 0.49 X10^3/uL; Hematocrit 38.9 % (37-47); Hemoglobin 11.8 g/dL (12.0-15.0); Lymphocyte # 2.73 X10^3/ul (0.83-4.51); Lymphocyte % 27.6 % (19-41); Mean Corp Hgb Conc 30.3 g/dL (32-36); Mean Corpuscular Hgb 25.5 pg (27.0-32.0); Mean Corpuscular Volume 84.2 fL (81-99); Monocyte# 0.59 X10^3/uL; NRBC Flagged by Analyzer 0 % (0-5); Neutrophil % 59.7 % (47-70); Platelet Count 366 K/mm3 (150-450); RBC Distribution Width CV 14.3 % (11.6-14.6); RBC Distribution Width SD 44.1 fl (35.1-43.9); Red Blood Count 4.62 M/mm3 (4.2-5.4); White Blood Count 9.9 K/mm3 (4.4-11.0)
[2024-11-04 00:30] LABS: Internal QC Validated? YES +Cl - CLEAR BKGD; Pregnancy, Urine Negative Negative; White Blood Cells 5-10 SEEN /hpf (0-5)
[2024-11-04] MEDS: Ketorolac 30 MG/ML Syringe IV (00:31)
[2024-11-04 00:32] LABS: Anion Gap 6 (5-15); BUN 16 mg/dL (7-18); BUN/Creat Ratio 17.8 RATIO (10-20); Calcium,Total 9.2 mg/dL (8.5-10.1); Chloride 109 mmol/L (98-107); EST Glomerular Filtration Rate 81 mL/min (>60); Est Glom Filt Rate - Afr Amer 98 mL/min (>60); Estimated Creatinine Clearance 80.97 ml/min; Glucose 125 mg/dL (74-106); Potassium 3.5 mmol/L (3.5-5.1); Sodium Level 140 mmol/L (136-145)
--- NOTE | 2024-11-04 00:45 | RAD_ITS ---
EXAM: XR CHEST, 2 VIEWS CLINICAL INDICATION: cough TECHNIQUE: Frontal and lateral views of the chest. COMPARISON: 12/06/2019. FINDINGS: LUNGS AND PLEURAL SPACES: Unremarkable. No consolidation or edema. No pneumothorax. No effusion. HEART: Unremarkable. Cardiac silhouette not enlarged. MEDIASTINUM: Central airways and mediastinal contour are unremarkable. BONES/JOINTS: Unremarkable. No acute fracture. SOFT TISSUES: Unremarkable. RAD/Chest PA and Lateral IMPRESSION: No acute cardiopulmonary abnormality. Electronically Signed: Florentin Godfrey MD at 1:39 EST ,
[2024-11-04 01:01] VITALS: BP 102/70; PULSE 77; RESP 15; O2SAT 98
[2024-11-04] MEDS: oxyCODONE 5 MG Tablet PO (01:40)
--- NOTE | 2024-11-04 01:57 | EDS_ITS ---
HPI History of Present Illness Chief Complaint: Flank Pain Informant: patient Narrative Narrative: Patient is a 24-year-old female with past medical history of asthma and migraines. She states over the past month she has had pain in the left low back. She states that there was no recent trauma or excessive activity. She states that the pain does not seem to radiate. She denies any loss of bowel or bladder control or IV drug use. She also states she has had 4 to 5 days of cough and congestion and feels that her back pain has worsened since this started. She denies any dysuria but states that with the back pain she is concern for a kidney infection or potential pneumonia and therefore comes in for evaluation. [facility] Medical History UTI (urinary tract infection) Migraines Asthma SVT (supraventricular tachycardia) Home Medications ?Medication ?Instructions ?Recorded ?Last Taken ?Type cefdinir 300 mg capsule 300 mg PO Q12H #14 caps 10/22/24 Unknown Rx ibuprofen 600 mg tablet 600 mg PO Q6H PRN PRN pain #20 10/22/24 Unknown Rx TABLETS oxycodone-acetaminophen 5 mg-325 1 tab PO Q6H PRN pain 3 days #12 11/04/24 Unknown Rx mg tablet (Percocet) tabs tizanidine 2 mg capsule (Zanaflex) 2 mg PO TID PRN muscle spasticity 11/04/24 Unknown Rx 5 days #15 caps Allergy/AdvReac Type Severity Reaction Status Date / Time diphenhydramine (From Allergy CHILDHOOD Verified 11/03/24 23:04 Benadryl) ALLERGY Penicillins (PCN) Allergy CHILDHOOD Verified 11/03/24 23:04 ALLERGY Surgical History History of Social History household members: family Smoking Status: Current every day smoker tobacco type: smokeless tobacco ROS ROS ED Constitutional Constitutional ED: Denies chills or fever(s) Eyes Eyes: Denies change in vision ENT ENT ED: Reports rhinorrhea; Denies sore throat Cardiovascular Cardiovascular: Denies chest pain Respiratory/Chest Respiratory/Chest: Reports cough; Denies dyspnea Gastrointestinal Gastrointestinal: Denies abdominal pain, diarrhea, nausea or vomiting Genitourinary Genitourinary ED: Denies dysuria or hematuria Musculoskeletal Musculoskeletal: Reports back pain Integumentary Denies rash Neurologic Neurologic: Denies headache(s) Hematologic/Lymphatic Hematologic/Lymphatic: Denies easy bleeding or easy bruising EXAM Physical Exam Const Vital Signs: 11/03/24 23:02 11/03/24 23:03 11/04/24 01:01 Temperature 97.6 F L 97.6 F L Temperature Source Temporal Temporal Pulse Rate 98 98 77 Respiratory Rate 16 16 15 Blood Pressure 155/95 H 155/95 H 102/70 Blood Pressure Mean 115 115 80 Pulse Ox 100 100 98 Oxygen Delivery Method Room Air Room Air Room Air 11/04/24 02:12 Temperature 98.1 F Temperature Source Pulse Rate 71 Respiratory Rate 15 Blood Pressure 115/74 Blood Pressure Mean 87 Pulse Ox 98 Oxygen Delivery Method Positive well nourished and well developed General Appearance ED: well developed; Negative for pallor HEENT HEENT Narrative: No tongue or lip swelling no oral lesions no airway edema or compromise There is cobblestoning the posterior pharynx consistent with sinus drainage without secondary findings to suggest infection Eyes PERRL and EOMs intact bilaterally General Eye ED: Negative for scleral icterus Neck supple Resp normal respiratory effort and clear to auscultation bilaterally Resp Narrative: There is faint rhonchi bilaterally in the lower lobes without nasal flaring retractions tachypnea or accessory muscle use Cardio regular rate and regular rhythm Rate: other Other Details: Heart is regular rate and rhythm without murmurs rubs or gallop Radial and carotid pulses are equal and symmetric GI normal to inspection, nondistended, normoactive bowel sounds, non-tender, non- distended and no masses GI Narrative: No voluntary guarding or rigidity or pulsatile mass Auscultation: normoactive bowel sounds Palpation: soft Back/Spine no CVA tenderness Back/Spine Narrative: No CVA tenderness noted No bony deformity or step-off of the thoracic or lumbar spine no midline tenderness There is mild pain on palpation in the left lower paralumbar muscle belly region that worsens with extension and rotation No saddle anesthesia. Negative straight leg raise. No clonus or Babinski. Patellar reflexes are plus 2 out of 4 bilaterally Extremity normal to inspection Extremity Narrative: No asymmetric edema no pitting edema negative Homans' sign bilaterally Neuro oriented x3, CN's II-XII intact bilaterally and no sensory deficits noted Sensorium / Orientation: alert Motor Exam: strength 5/5 throughout Psych mental status grossly normal Skin no rashes or lesions noted and no wounds Skin Narrative: No overlying soft tissue changes to suggest trauma or infection General Skin Exam: Negative for jaundice or pallor MDM MDM MDM Narrative Medical decision making narrative: Patient presented to the ER hypertensive otherwise with stable vital. With her report of persistent back pain and now cough there is concern for lumbosacral strain versus pneumonia versus UTI versus pyelonephritis versus kidney stone. Secondary to this a chest x-ray was obtained as well as basic blood work and noncontrast CT scan. Chest x-ray revealed no acute lung pathology. Lab work showed no signs of acute kidney injury or electrolyte abnormality. Urine sample showed no sign of infection going against UTI/pyelonephritis and patient is not going against a complicated. CT scan showed gallstones but otherwise was nonfocal. The patient's pain is in the left paralumbar region she does not have a positive Rothman sign she is not jaundiced there is no scleral icterus and therefore I feel this is an incidental finding and does not need further workup at this time. Also has patient denies any recent back procedures loss of bowel or bladder control or IV drug use my concern for cauda equina epidural abscess or discitis is low. I do feel this is most likely lumbosacral strain worsened by her viral URI and is overall workup is negative she is ot herwise safe for discharge History & Record Review Discussion w/independent historian: Patient Lab Data Attestation: I reviewed the patient's lab results. Labs: Laboratory Results - last 24 hr 11/03/24 11/03/24 23:17 23:22 WBC 9.9 RBC 4.62 Hgb 11.8 L Hct 38.9 MCV 84.2 MCH 25.5 L MCHC 30.3 L RDW Std Deviation 44.1 H RDW Coeff of Jessica 14.3 Plt Count 366 MPV 11.0 Immature Gran % (Auto) 1.300 H Neut % (Auto) 59.7 Lymph % (Auto) 27.6 [place] % (Auto) 6.0 Eos % (Auto) 5.0 Baso % (Auto) 0.4 Absolute Neuts (auto) 5.9 Absolute Lymphs (auto) 2.73 Nucleated RBC % 0 Sodium 140 Potassium 3.5 Chloride 109 H Carbon Dioxide 24.0 Anion Gap 6 BUN 16 Creatinine 0.90 Estim Creat Clear Calc 80.97 Est GFR (MDRD) Af Amer 98 Est GFR (MDRD) Non-Af 81 BUN/Creatinine Ratio 17.8 Glucose 125 H Calcium 9.2 Urine Color Yellow Urine Clarity Clear Urine pH 7.0 Ur Specific Fabius 1.005 Urine Protein 15 H Urine Glucose (UA) Normal Urine Ketones Negative Urine Occult Blood 250 H Urine Nitrite Negative Urine Bilirubin Negative Urine Urobilinogen Normal Ur Leukocyte Esterase 500 H Urine RBC 0 SEEN Urine WBC 5-10 SEEN Ur Squamous Epith Cells 0 SEEN Urine Bacteria 0 SEEN Urine Mucus 0 SEEN Urine Test Negative Radiography Diagnostic Testing: Clinical Impression(s) from Imaging Studies Abdomen/Pelvis CT 11/04/24 00:07 IMPRESSION: 1. Cholelithiasis. 2. Tiny nonobstructing calculus right kidney. Electronically Signed: Florentin Godfrey MD at 1:35 EST , Chest X-Ray 11/04/24 00:45 IMPRESSION: No acute cardiopulmonary abnormality. Electronically Signed: Florentin Godfrey MD at 1:39 EST , Chest x-ray as interpreted by the emergency medicine physician reveals no acute infiltrate pneumothorax or pleural effusion Discharge Plan Triage Chief Complaint: Flank Pain ED Provider: Miki Lay Dx/Rx/DC Orders Clinical Impression: Acute lumbosacral myofascial strain, Cholelithiasis, Viral upper respiratory tract infection with cough Instructions: Gallstones Dc, Understanding Lumbosacral Strain Prescriptions: New oxycodone-acetaminophen [Percocet] 5-325 mg tablet 1 tab PO Q6H PRN (Reason: pain) 3 Days Qty: 12 0RF tizanidine [Zanaflex] 2 mg capsule 2 mg PO TID PRN (Reason: muscle spasticity) 5 Days Qty: 15 0RF No Action ibuprofen 600 mg tablet 600 mg PO Q6H PRN PRN (Reason: pain) Qty: 20 0RF cefdinir 300 mg capsule 300 mg PO Q12H Qty: 14 0RF Other Ambulatory Orders: Gallbladder (Routine) Facility: [facility] - Location: [facility] Ordered By: Dr. Miki Lay Primary Care Provider: Care Physician,No Primary Referrals: Edgar Gutierrez MD [Med Staff - Active Staff] - Care Physician,No Primary [Primary Care Provider] - Activity Restrictions/Additional Instructions: Please obtain your outpatient ultrasound to further assess your gallbladder/ gallstone. Take the prescribed medication as directed to help control any muscle pain or spasm and return to the ER should you have any further concerns Print Language: Sierra Leonean Disposition Disposition: Home, Self Care Discharge Date/Time: 11/04/24 02:16
[2024-11-04 02:12] VITALS: BP 115/74; PULSE 71; RESP 15; TEMP 36.7; O2SAT 98
== END 2024-11-04 02:16 | disposition home or self-care (01) ==
PROVIDERS: Emergency Provider Emergency Medicine; Visit Provider Emergency Medicine
DX: S39.012A Strain of muscle, fascia and tendon of lower back, initial encounter (principal); J06.9 Acute upper respiratory infection, unspecified; K80.20 Calculus of gallbladder without cholecystitis without obstruction; J45.909 Unspecified asthma, uncomplicated; F17.220 Nicotine dependence, chewing tobacco, uncomplicated; Z79.899 Other long term (current) drug therapy
CPT/HCPCS: 71046; 74176; 80048; 81001; 81025; 85025; 96374; 99284; A4216

== ENCOUNTER 2024-11-06 19:19 | Emergency (ER) | payer MEDICAID, SELFPAY ==
[2024-11-06 19:20] VITALS: BP 138/79; PULSE 95; RESP 18; TEMP 35.9; O2SAT 97; BMI 28.1
--- NOTE | 2024-11-06 19:45 | EDS_ITS ---
HPI History of Present Illness Chief Complaint: Abd Pain Narrative Narrative: 24-year-old female, past medical history of asthma, was seen on Thursday, 2 days ago for left-sided back pain. She states that they did a CT that showed gallstones, and now she has left-sided back pain that is worsening and radiates up and down her back, and towards the front. While she was given Percocet, she does not want to take that because she does not like to take it unless she is in the hospital. She denies any loss of bowel or bladder radiation down her leg. She states she was diagnosed with an acute lumbar strain, but was told to return if it was worsening. She has not taking anything, even over the counter medications for analgesia. She states that walking actually makes it better. [facility] Medical History UTI (urinary tract infection) Migraines Asthma SVT (supraventricular tachycardia) Home Medications ?Medication ?Instructions ?Recorded ?Last Taken ?Type cefdinir 300 mg capsule 300 mg PO Q12H #14 caps 10/22/24 Unknown Rx ibuprofen 600 mg tablet 600 mg PO Q6H PRN PRN pain #20 10/22/24 Unknown Rx TABLETS oxycodone-acetaminophen 5 mg-325 1 tab PO Q6H PRN pain 3 days #12 11/04/24 Unknown Rx mg tablet (Percocet) tabs tizanidine 2 mg capsule (Zanaflex) 2 mg PO TID PRN muscle spasticity 11/04/24 Unknown Rx 5 days #15 caps ibuprofen 600 mg tablet 600 mg PO Q8H PRN PRN pain #20 11/06/24 Unknown Rx TABLETS tizanidine 2 mg capsule (Zanaflex) 2 mg PO TID PRN muscle spasticity 11/06/24 Unknown Rx #20 caps Allergy/AdvReac Type Severity Reaction Status Date / Time diphenhydramine (From Allergy CHILDHOOD Verified 11/06/24 19:20 Benadryl) ALLERGY Penicillins (PCN) Allergy CHILDHOOD Verified 11/06/24 19:20 ALLERGY Surgical History History of Social History household members: family Smoking Status: Current every day smoker tobacco type: smokeless tobacco ROS ROS ED ROS Narrative Constitutional: No fever, no chills. HEENT: No sore throat. No neck pain. No loss of vision. No rhinorrhea. Cardiovascular: No chest pain. No palpitations. No pedal edema. Respiratory: No cough, no shortness of breath. Abdominal: No abdominal pain. No nausea. No vomiting. Genitourinary: No dysuria. No hematuria. Musculoskeletal: No myalgias. No arthralgias. Positive left sided back pain. Worse with bending and palpation, somewhat improved with walking. Neurologic: No headaches. No dizziness. No lightheadedness. Skin: No rash. No change in color. Psychiatric: No depression. No anxiety. EXAM Physical Exam Narrative Exam Narrative: Afebrile. Vital signs noted. HEENT examination is unremarkable. Neck is soft and supple. Cardiovascular examination regular rate and rhythm. Lungs clear to auscultation bilaterally. Abdomen soft and nontender with positive bowel sounds. Mild tenderness palpation left paraspinal muscles. No vertebral point tenderness or bony step-off. Neurovascular intact bilateral lower extremities. Moves all extremities. Const Vital Signs: 11/06/24 19:20 Temperature 96.7 F L Temperature Source Temporal Pulse Rate 95 Respiratory Rate 18 Blood Pressure 138/79 H Blood Pressure Mean 98 Pulse Ox 97 Oxygen Delivery Method Room Air MDM MDM MDM Narrative Medical decision making narrative: Differential diagnosis includes but not limited to ureterolithiasis versus pyelonephritis versus musculoskeletal back pain. I reviewed her prior visit from 2 days ago and she did have a CT which did show gallstones but no other acute process. I do not feel she needs repeat imaging or laboratory work. I do not feel she needs antibiotics for a UTI. She had an entire workup 2 days ago. This was including chest x-ray, CT scan of the abdomen and pelvis, urinalysis, and basic laboratory work. Patient was administered ibuprofen and Norflex here in the emergency department. I wrote her for tenacity and although she had been written for tenacity and and Percocet, I am unsure if she picked up her with her prescription. I also wrote her prescription for ibuprofen. She was referred to her primary care provider. I do feel this is musculoskeletal back pain and that she can be discharged to follow-up. Disposition is discharged home in stable condition. History & Record Review Discussion w/independent historian: Patient Additional record(s) reviewed:: Prior ED visit and Prior labs Discharge Plan Triage Chief Complaint: Abd Pain ED Provider: Shakir England Dx/Rx/DC Orders Clinical Impression: Acute lumbosacral myofascial strain, Back pain Instructions: ED Back Pain (Acute or Chronic) Prescriptions: New tizanidine [Zanaflex] 2 mg capsule 2 mg PO TID PRN (Reason: muscle spasticity) Qty: 20 0RF ibuprofen 600 mg tablet 600 mg PO Q8H PRN PRN (Reason: pain) Qty: 20 0RF No Action oxycodone-acetaminophen [Percocet] 5-325 mg tablet 1 tab PO Q6H PRN (Reason: pain) 3 Days Qty: 12 0RF tizanidine [Zanaflex] 2 mg capsule 2 mg PO TID PRN (Reason: muscle spasticity) 5 Days Qty: 15 0RF ibuprofen 600 mg tablet 600 mg PO Q6H PRN PRN (Reason: pain) Qty: 20 0RF cefdinir 300 mg capsule 300 mg PO Q12H Qty: 14 0RF Primary Care Provider: Care Physician,No Primary Referrals: Edgar Gutierrez MD [Med Staff - Active Staff] - 1 Week if not improving Care Physician,No Primary [Primary Care Provider] - Activity Restrictions/Additional Instructions: Medication as directed. Start with the anti-inflammatories and muscle relaxers. Return with fever, new or worsening symptoms. Print Language: Bengali Disposition Disposition: Home, Self Care
[2024-11-06] MEDS: Orphenadrine 100 MG Tablet PO (19:52)
[2024-11-06] MEDS: Ibuprofen 600 MG Tablet PO (19:52)
== END 2024-11-06 20:14 | disposition home or self-care (01) ==
LOC: ED 19:49
PROVIDERS: Emergency Provider Emergency Medicine; Visit Provider Emergency Medicine
DX: S39.012A Strain of muscle, fascia and tendon of lower back, initial encounter (principal); K80.20 Calculus of gallbladder without cholecystitis without obstruction; J45.909 Unspecified asthma, uncomplicated; F17.220 Nicotine dependence, chewing tobacco, uncomplicated; M54.9 Dorsalgia, unspecified; X58.XXXA Exposure to other specified factors, initial encounter
CPT/HCPCS: 99284

== ENCOUNTER 2024-12-11 05:22 | Emergency (ER) | payer MEDICAID, SELFPAY ==
[2024-12-11 05:23] VITALS: BP 143/102; PULSE 117; RESP 18; TEMP 36.8; O2SAT 96; BMI 26.7
[2024-12-11] MEDS: 0.9% Normal Saline (1000mL) 1,000 ML 999 ML IV (05:49)
[2024-12-11] MEDS: Ondansetron 4 MG/2 ML Vial IV (05:49)
--- NOTE | 2024-12-11 05:57 | EX.ED.DYSGE1 ---
HPI History of Present Illness Chief Complaint: Nausea/Vomiting/Diarrhea Informant: patient Narrative Narrative: Patient is a 24-year-old female with past medical history of asthma and migraine headache. She also reports anxiety. She states that over the last 3 months she will experience intermittent bouts of recurrent nausea and vomiting. She states that the symptoms seem to occur after eating or drinking any type of food or fluid. She does report that she does marijuana daily but states that she feels that this helps control her nausea and does not stimulate bouts of vomiting. She denies any recent sick contacts or fevers or chills but does state that along with her nausea and vomiting over the last 1 to 2 days she is also experience bouts of loose stool. She states she is concerned for dehydration as she cannot keep food or fluid down and secondary to this comes in for evaluation [facility] Medical History UTI (urinary tract infection) Migraines Asthma SVT (supraventricular tachycardia) Home Medications ?Medication ?Instructions ?Recorded ?Last Taken ?Type tizanidine 2 mg capsule (Zanaflex) 2 mg PO TID PRN muscle spasticity 11/04/24 Unknown Rx 5 days #15 caps buspirone 7.5 mg tablet 7.5 mg PO BID 30 days #60 tabs 12/11/24 Unknown Rx famotidine 20 mg tablet (Pepcid) 20 mg PO BID 30 days #60 tabs 12/11/24 Unknown Rx paliperidone 6 mg tablet,extended 6 mg PO QHS 12/11/24 Unknown History release 24 hr promethazine 25 mg tablet 25 mg PO TID PRN nausea and 12/11/24 Unknown Rx vomiting #21 tabs Allergy/AdvReac Type Severity Reaction Status Date / Time diphenhydramine (From Allergy CHILDHOOD Verified 11/06/24 19:20 Benadryl) ALLERGY Penicillins (PCN) Allergy CHILDHOOD Verified 11/06/24 19:20 ALLERGY Surgical History History of Social History household members: family Smoking Status: Current every day smoker tobacco type: e-cigarettes and smokeless tobacco ROS ROS ED Constitutional Constitutional ED: Denies chills or fever(s) Eyes Eyes: Denies blurry vision or change in vision ENT ENT ED: Denies sore throat Cardiovascular Cardiovascular: Denies chest pain Respiratory/Chest Respiratory/Chest: Denies cough or dyspnea Gastrointestinal Gastrointestinal: Reports abdominal pain, diarrhea, nausea and vomiting Genitourinary Genitourinary ED: Denies dysuria, hematuria or urinary frequency Musculoskeletal Musculoskeletal: Denies back pain or myalgias Integumentary Denies rash Neurologic Neurologic: Denies headache(s) Psychiatric Psychiatric: Reports anxiety Hematologic/Lymphatic Hematologic/Lymphatic: Denies easy bleeding or easy bruising EXAM Physical Exam Const Vital Signs: 12/11/24 05:23 Temperature 98.3 F Temperature Source Oral Pulse Rate 117 H Respiratory Rate 18 Blood Pressure 143/102 H Blood Pressure Mean 115 Pulse Ox 96 Oxygen Delivery Method Room Air Positive well nourished and well developed General Appearance ED: well developed; Negative for pallor HEENT Reports dry mucous membranes HEENT Narrative: Mucous membranes are mildly dry and tacky No tongue or lip swelling no oral lesions no airway edema or compromise No secondary findings in the posterior pharynx to suggest infection Mouth ED: Yes dry mucous membranes Mouth: dry mucous membranes Eyes PERRL and EOMs intact bilaterally General Eye ED: Negative for scleral icterus Neck supple Neck Narrative: No nuchal rigidity or meningeal signs noted Resp normal respiratory effort and clear to auscultation bilaterally Cardio regular rhythm Rate: tachycardic and other Other Details: Tachycardic rate with regular rhythm No murmurs rubs or gallop Radial and carotid pulses are equal and symmetric GI non-distended and no masses GI Narrative: Abdomen is soft and nondistended with hyperactive bowel sounds. Patient has mild diffuse pain with palpation without voluntary guarding or rigidity. No pulsatile mass or fluid wave. No pain over McBurney's point. Negative Rothman sign. Auscultation: hyperactive bowel sounds Palpation: soft Extremity normal to inspection Extremity Narrative: No asymmetric edema no pitting edema negative Homans' sign bilaterally Neuro oriented x3, CN's II-XII intact bilaterally and no sensory deficits noted Sensorium / Orientation: alert Motor Exam: strength 5/5 throughout Psych Mood & Affect: anxious and tearful Skin no rashes or lesions noted Skin Narrative: Skin turgor is slightly increased General Skin Exam: Negative for jaundice or pallor MDM MDM MDM Narrative Medical decision making narrative: Patient arrived to ER hypertensive and tachycardic but was anxious and these are most likely physiologic side effects of the anxiety. Chart review displays she has known gallstones and with recurrent bouts of nausea and vomiting there is concern for biliary colic versus acute cholecystitis versus gallstone pancreatitis. Patient may also have complications such as hyperemesis or a potential viral stomach infection such as norovirus versus rotavirus. With 1 to 2 days of nausea vomiting and loose stool there is also concern for acute kidney injury or severe electrolyte abnormality. Therefore elected to perform basic laboratory studies. Chart review reveals she has had a CT scan of her abdomen just roughly 1 month ago and ultrasound of her gallbladder in September and therefore with a soft nonsurgical abdomen I do not feel need for repeat imaging at this time. Lab work revealed no clinically significant finding. Patient is lipase normal going against pancreatitis. Liver enzymes are normal going against acute cholecystitis or biliary colic and she has no signs of KAE or clinically significant electrolyte abnormalities. Her test is also negative going against a complication. Therefore after receiving IV fluids Zofran Ativan Compazine and Pepcid he did report improvement of her symptoms and her vitals improved. He also had no further bouts of vomiting or diarrhea while in the ER. Therefore do not feel there is need for further workup at this time and patient is otherwise safe for discharge History & Record Review Discussion w/independent historian: Patient Lab Data Attestation: I reviewed the patient's lab results. Labs: Laboratory Results - last 24 hr 12/11/24 05:49 WBC 5.8 RBC 4.78 Hgb 12.4 Hct 39.1 MCV 81.8 MCH 25.9 L MCHC 31.7 L RDW Std Deviation 42.1 RDW Coeff of Jessica 14.1 Plt Count 319 MPV 10.4 Immature Gran % (Auto) 0.200 Neut % (Auto) 77.0 H Lymph % (Auto) 14.1 L Butts % (Auto) 7.0 Eos % (Auto) 1.4 Baso % (Auto) 0.3 Absolute Neuts (auto) 4.5 Absolute Lymphs (auto) 0.82 L Nucleated RBC % 0 Sodium 137 Potassium 3.5 Chloride 109 H Carbon Dioxide 24.0 Anion Gap 5 BUN 4 L Creatinine 0.68 Estim Creat Clear Calc 104.18 Est GFR (MDRD) Af Amer 136 Est GFR (MDRD) Non-Af 112 BUN/Creatinine Ratio 5.9 L Glucose 116 H Calcium 9.3 Total Bilirubin 0.20 Direct Bilirubin 0.06 AST 12 L ALT 25 Alkaline Phosphatase 129 H Total Protein 8.0 Albumin 4.0 Globulin 4.0 Lipase 21 Serum , Qual NEGATIVE Discharge Plan Triage Chief Complaint: Nausea/Vomiting/Diarrhea ED Provider: Miki Lay Dx/Rx/DC Orders Clinical Impression: Nausea & vomiting, Dehydration, Anxiety, History of migraine headaches, Asthma Instructions: Your Body's Response to Anxiety, ED Dehydration (Adult) Prescriptions: New famotidine [Pepcid] 20 mg tablet 20 mg PO BID 30 Days Qty: 60 0RF promethazine 25 mg tablet 25 mg PO TID PRN (Reason: nausea and vomiting) Qty: 21 0RF buspirone 7.5 mg tablet 7.5 mg PO BID 30 Days Qty: 60 0RF No Action tizanidine [Zanaflex] 2 mg capsule 2 mg PO TID PRN (Reason: muscle spasticity) 5 Days Qty: 15 0RF paliperidone 6 mg tablet extended release 24hr 6 mg PO QHS Patient Comments: TAKE 1 TABLET BY MOUTH DAILY AT BEDTIME starting after you finish the 3mg dose Primary Care Provider: Care Physician,No Primary Referrals: Edgar Gutierrez MD [Med Staff - Active Staff] - Care Physician,No Primary [Primary Care Provider] - Activity Restrictions/Additional Instructions: Please begin taking the Pepcid as directed to control any aspect of acid reflux that could be contributing to your nausea and vomit. As anxiety may also cause a role in your recurrent symptoms begin taking the BuSpar/buspirone twice a day as directed. If nausea and vomiting persist you may take the Phenergan/promethazine as directed to see if this helps control any exacerbation. Please follow-up with your family doctor to discuss potential GI referral based on your recurrent symptoms and return to the ER should you have any further concerns Print Language: Lithuanian Disposition Disposition: Home, Self Care
[2024-12-11 05:58] LABS: Absolute Lymphocyte Count 0.82 X10^3/uL (0.83-4.51); Absolute Neutrophil Count 4.5 X10^3/uL (2.0-7.7); Basophil# 0.02 X10^3/uL; Basophil% 0.3 % (0-1); Eosinophil# 0.08 X10^3/uL; Eosinophils% 1.4 % (0-5); Hematocrit 39.1 % (37-47); Hemoglobin 12.4 g/dL (12.0-15.0); Lymphocyte # 0.82 X10^3/ul (0.83-4.51); Lymphocyte % 14.1 % (19-41); Mean Corp Hgb Conc 31.7 g/dL (32-36); Mean Corpuscular Hgb 25.9 pg (27.0-32.0); Mean Corpuscular Volume 81.8 fL (81-99); Mean Platelet Vol. 10.4 fl (6.2-12.0); Monocyte# 0.41 X10^3/uL; NRBC Flagged by Analyzer 0 % (0-5); Neutrophil # 4.49 X10^3/uL (2.7-7.7); Platelet Count 319 K/mm3 (150-450); RBC Distribution Width CV 14.1 % (11.6-14.6); RBC Distribution Width SD 42.1 fl (35.1-43.9); Red Blood Count 4.78 M/mm3 (4.2-5.4); White Blood Count 5.8 K/mm3 (4.4-11.0)
[2024-12-11 06:13] LABS: Internal QC Validated? YES +Cl - CLEAR BKGD; Pregnancy, Serum, hCG Quali. NEGATIVE Negative
[2024-12-11 06:16] LABS: AST(SGOT) 12 U/L (15-37); Alanine Aminotransfer ALT/SGPT 25 U/L (13-56); Alkaline Phosphatase 129 U/L (45-117); Anion Gap 5 (5-15); BUN 4 mg/dL (7-18); BUN/Creat Ratio 5.9 RATIO (10-20); Bilirubin, Direct 0.06 mg/dL (0.00-0.30); Calcium,Total 9.3 mg/dL (8.5-10.1); Chloride 109 mmol/L (98-107); Creatinine, Serum 0.68 mg/dL (0.55-1.02); EST Glomerular Filtration Rate 112 mL/min (>60); Est Glom Filt Rate - Afr Amer 136 mL/min (>60); Estimated Creatinine Clearance 104.18 ml/min; Glucose 116 mg/dL (74-106); Lipase 21 U/L (13-75); Potassium 3.5 mmol/L (3.5-5.1); Sodium Level 137 mmol/L (136-145)
[2024-12-11] MEDS: proCHLORPERazine 10 MG/2 ML Vial 5 MG IV (06:31)
[2024-12-11] MEDS: LORazepam 2 MG/ML Syringe 1 MG IV (06:31)
[2024-12-11] MEDS: Famotidine 200 MG/20 ML MDV 20 MG in 0.9% Normal Saline (Pres. free 8 ML 300 MG IV (06:34)
[2024-12-11 07:25] VITALS: BP 120/78; PULSE 75; RESP 16; TEMP 36.8; O2SAT 100
--- NOTE | 2025-01-10 16:53 | CM.ED ---
Social Work SW introduced self to patient and reason for visit. When SW entered room, patient was tearful, stating she was scared about needing surgery. Emotional support was provided. Patient also stated that she had moved back to [place] less than a year ago and had not had a chance to find a PCP. [facility] provider list given to patient. No further needs identified. Ivette Patel, FLIGHT NURSE, DIRECT CHILL CASTER
== END 2024-12-11 08:05 | disposition home or self-care (01) ==
PROVIDERS: Emergency Provider Emergency Medicine; Visit Provider Emergency Medicine
DX: R11.2 Nausea with vomiting, unspecified (principal); R19.7 Diarrhea, unspecified; E86.0 Dehydration; J45.909 Unspecified asthma, uncomplicated; G43.909 Migraine, unspecified, not intractable, without status migrainosus; F41.9 Anxiety disorder, unspecified; Z79.899 Other long term (current) drug therapy; F17.290 Nicotine dependence, other tobacco product, uncomplicated; F17.220 Nicotine dependence, chewing tobacco, uncomplicated
CPT/HCPCS: 80048; 80076; 83690; 84703; 85025; 96361; 96365; 96375; 99282; A4216; J2405

== ENCOUNTER 2025-01-10 06:21 | Observation (INO) | payer MEDICAID, SELFPAY ==
[2025-01-10] VITALS (21 sets, daily range): BP systolic 90–158; BP diastolic 54–90; PULSE 78–116; RESP 15–18; TEMP 36.4–38.5; O2SAT 80–99; BMI 24.9; BMI 25.0
--- NOTE | 2025-01-10 06:55 | CT_ITS ---
PROCEDURE: ABDOMEN/PELVIS W IV CONT ONLY REASON FOR EXAM: 24-year-old female, right upper quadrant pain and history of kidney stones. Nausea and vomiting. TECHNIQUE: Abdomen and pelvis CT with intravenous contrast. No oral contrast. IV CONTRAST: Isovue-300. COMPARISON: CT abdomen pelvis 11/04/2024. FINDINGS: Lung bases: The heart is normal in size. The bibasilar lungs are clear. Liver: Mild hepatomegaly without focal hepatic mass. The major portal veins are patent. No biliary ductal dilation. Gallbladder: Several radiolucent gallstones within the gallbladder, unchanged since prior examination. No gallbladder wall thickening or pericholecystic fluid. Spleen: Unremarkable. Pancreas: Unremarkable. Adrenals: Unremarkable adrenal glands. Kidneys: Area of wedge shape hypoenhancement along the right mid lateral renal cortex no hydronephrosis or nephrolithiasis. Bladder: Decompressed. Reproductive Organs: Retroflexed uterus. Bowel: The bowel loops are normal in caliber. No ascites or pneumoperitoneum. Normal appendix located in the mid-left lower pelvis. Lymph nodes: No suspicious lymph node enlargement. Vasculature: Major vascular structures are unremarkable. Bones: No aggressive osseous lesions. CT/Abdomen/Pelvis W IV Cont ONLY IMPRESSION: 1. Wedge-shaped hypoenhancement along the mid right renal cortex, compatible wi th acute pyelonephritis. 2. Mild hepatomegaly. 3. Stable cholelithiasis without evidence of acute cholecystitis. One or more dose reduction techniques were used (e.g., Automated exposure contr ol, adjustment of the mA and/or kV according to patient size, use of iterative reconstruction technique). Reading Location: [facility]
--- NOTE | 2025-01-10 06:56 | EDS_ITS ---
HPI History of Present Illness Chief Complaint: Abd Pain Narrative Narrative: Patient is a 24-year-old female with past medical history of asthma, migraines, SVT who presented to the emergency department with a chief complaint of right- sided abdominal and back pain as well as nausea and vomiting. Patient states that she has been throwing up for the past few days and unable to keep anything down. States that she did not bend over picking up heavy that she recalls her having trauma to her back. Patient did note that she does have a history of kidney stones and she feels that this may be another kidney stone. Patient states that she has not had a but denies any other abdominal surgeries. Patient rates her pain a 7 out of 10. [facility] Medical History UTI (urinary tract infection) Migraines Asthma SVT (supraventricular tachycardia) Home Medications ?Medication ?Instructions ?Recorded ?Last Taken ?Type paliperidone 6 mg tablet,extended 6 mg PO QHS 12/11/24 Unknown History release 24 hr famotidine 20 mg tablet (Pepcid) 20 mg PO BID PRN abby 01/10/25 Unknown History Allergy/AdvReac Type Severity Reaction Status Date / Time diphenhydramine (From Allergy CHILDHOOD Verified 01/10/25 06:23 Benadryl) ALLERGY Surgical History History of Social History household members: family Smoking Status: Current every day smoker tobacco type: e-cigarettes and smokeless tobacco ROS ROS ED ROS Narrative Constitutional: Complains of chills denies fevers, Ryan, dizziness Cardiovascular: Denies chest pain or palpitations Respiratory: Denies coughing shortness of breath Abdomen: Complains of nausea vomiting and abdominal pain and flank pain as noted above : Denies painful urination, increased frequency of urinating Neurological: Denies numbness, weakness, tingling Musculoskeletal: Complains of right sided flank pain as noted above Skin: Denies any rashes or lesions EXAM Physical Exam Narrative Exam Narrative: General: Patient is lying in bed did appear to be uncomfortable secondary to her flank and abdominal pain Head: Atraumatic, normocephalic Eyes: PERRL bilaterally, EOMI bilaterally, no conjunctival injection noted Neck: Soft, supple, trachea midline Cardiovascular: Patient tachycardic with a regular rhythm no murmurs gallops rubs are noted Respiratory: Clear to auscultation bilaterally Abdomen: Tenderness palpation of the right upper quadrant no rebound or guarding on exam, soft, nondistended Musculoskeletal: Patient has some CVA tenderness noted on the right side no tenderness palpation the midline of the thoracic or lumbar spine Extremities: +5/5 strength noted in the bilateral upper and lower extremities, radial pulses +2/4 in the bilateral upper extremities Neurological: Patient follow commands knew that she was at [facility] the year is 2024 Skin: Warm, dry, intact no rashes or lesions noted Const Vital Signs: 01/10/25 06:21 01/10/25 06:25 01/10/25 07:25 Temperature 98.2 F 98.2 F 99.9 F H Temperature Source Oral Oral Oral Pulse Rate 108 H 108 H 96 Respiratory Rate 17 18 18 Blood Pressure 125/81 H 125/81 H 109/68 Blood Pressure Mean 95 95 81 Pulse Ox 98 98 95 Oxygen Delivery Method Room Air Room Air Room Air 01/10/25 08:00 01/10/25 10:00 Temperature 98.2 F 98.3 F Temperature Source Oral Oral Pulse Rate 105 H 116 H Respiratory Rate 16 16 Blood Pressure 108/62 158/87 H Blood Pressure Mean 77 110 Pulse Ox 97 98 Oxygen Delivery Method Room Air Room Air MDM MDM MDM Narrative Medical decision making narrative: Patient is a 24-year-old female who presented to the emerged part with chief complaint of abdominal pain and flank pain as well as nausea vomiting. On the differential diagnose includes but not limited to urolithiasis, UTI, py elonephritis, cholecystitis, pancreatitis. Once workup is obtained reviewed she will be reevaluated. Patient given IV fluids morphine Zofran. Patient CBC was significant for leukocytosis of 15,000, hemoglobin 0.7, platelet count was noted be 301. Patient's sodium was 135, potassium to be 3.3, creatinine normal at 0.86. Patient's AST and ALT are 14 and 26 respectively. Patient's lipase was noted to be 16, test negative, urinalysis showed no evidence of infection. Patient's CT abdomen pelvis with IV contrast was reviewed and showed wedge-shaped hypoenhancement along the mid right renal cortex compatible with acute pyelonephritis patient does not have evidence of UTI on her urinalysis therefore feel this less likely. Mild hepatomegaly. Stable cholelithiasis without evidence of acute cholecystitis. 1 back in and reevaluated the patient and she has significant right upper quadrant pain therefore added on a right upper quadrant ultrasound. Patient's right upper quadrant ultrasound showed no acute findings of cholecystitis. Patient was given Zosyn as she has a allergy as a child to penicillin therefore feel this is less likely that she has this allergy any longer. Called and discussed case with on-call general surgeon Dr. Stubbs who states that he will admit the patient. I discussed this plan with the patient she is agreeable question concerns answered. Lab Data Labs: Laboratory Results - last 24 hr 01/10/25 01/10/25 06:34 08:19 WBC 15.6 H RBC 4.53 Hgb 11.7 L Hct 36.3 L MCV 80.1 L MCH 25.8 L MCHC 32.2 RDW Std Deviation 41.3 RDW Coeff of Jessica 14.1 Plt Count 301 MPV 11.1 Immature Gran % (Auto) 0.500 Neut % (Auto) 84.8 H Lymph % (Auto) 3.7 L [place] % (Auto) 10.6 H Eos % (Auto) 0.1 Baso % (Auto) 0.3 Absolute Neuts (auto) 13.2 H Absolute Lymphs (auto) 0.57 L Nucleated RBC % 0 Differential Comment SCANNED Diff Path Review May foll Sodium 135 L Potassium 3.3 L Chloride 103 Carbon Dioxide 22.0 Anion Gap 10 BUN 12 Creatinine 0.86 Estim Creat Clear Calc 79.66 Est GFR (MDRD) Af Amer 102 Est GFR (MDRD) Non-Af 84 BUN/Creatinine Ratio 13.9 Glucose 130 H Calcium 9.4 Total Bilirubin 1.10 H AST 14 L ALT 26 Alkaline Phosphatase 116 Total Protein 8.0 Albumin 3.6 Globulin 4.4 H Albumin/Globulin Ratio 0.8 L Lipase 16 L Serum , Qual NEGATIVE Urine Color Yellow Urine Clarity Clear Urine pH 7.0 Ur Specific [place] 1.010 Urine Protein 30 H Urine Glucose (UA) Normal Urine Ketones 5 H Urine Occult Blood 10 H Urine Nitrite Negative Urine Bilirubin Negative Urine Urobilinogen 12 H Ur Leukocyte Esterase 25 H Urine RBC 0-5 SEEN Urine WBC 0-5 SEEN Ur Squamous Epith Cells 0-5 SEEN Urine Bacteria RARE Urine Mucus 0 SEEN Urine Test Cancelled Radiography Diagnostic Testing: Clinical Impression(s) from Imaging Studies Abdomen/Pelvis CT 01/10/25 06:55 IMPRESSION: 1. Wedge-shaped hypoenhancement along the mid right renal cortex, compatible with acute pyelonephritis. 2. Mild hepatomegaly. 3. Stable cholelithiasis without evidence of acute cholecystitis. One or more dose reduction techniques were used (e.g., Automated exposure control, adjustment of the mA and/or kV according to patient size, use of iterative reconstruction technique). Reading Location: [id number] Gallbladder Ultrasound 01/10/25 08:54 IMPRESSION: Sonographic findings consistent with acute cholecystitis. Reading Location: [facility] Discharge Plan Triage Chief Complaint: Abd Pain ED Provider: Jose Juan Matt Dx/Rx/DC Orders Clinical Impression: Acute cholecystitis, Nausea & vomiting, Abdominal pain Prescriptions: No Action paliperidone 6 mg tablet extended release 24hr 6 mg PO QHS Patient Comments: TAKE 1 TABLET BY MOUTH DAILY AT BEDTIME starting after you finish the 3mg dose famotidine [Pepcid] 20 mg tablet 20 mg PO BID PRN (Reason: abby) Primary Care Provider: Care Physician,No Primary Referrals: Care Physician,No Primary [Primary Care Provider] - Print Language: Irish Disposition Disposition: Acute Care [facility]
[2025-01-10 07:02] LABS: Absolute Lymphocyte Count 0.57 X10^3/uL (0.83-4.51); Absolute Neutrophil Count 13.2 X10^3/uL (2.0-7.7); Basophil# 0.04 X10^3/uL; Basophil% 0.3 % (0-1); Eosinophil# 0.01 X10^3/uL; Eosinophils% 0.1 % (0-5); Hematocrit 36.3 % (37-47); Hemoglobin 11.7 g/dL (12.0-15.0); Lymphocyte # 0.57 X10^3/ul (0.83-4.51); Lymphocyte % 3.7 % (19-41); Mean Corp Hgb Conc 32.2 g/dL (32-36); Mean Corpuscular Hgb 25.8 pg (27.0-32.0); Mean Corpuscular Volume 80.1 fL (81-99); Mean Platelet Vol. 11.1 fl (6.2-12.0); Monocyte# 1.66 X10^3/uL; Monocyte% 10.6 % (0-10); NRBC Flagged by Analyzer 0 % (0-5); Neutrophil # 13.24 X10^3/uL (2.7-7.7); Neutrophil % 84.8 % (47-70); POSITIVE DIFFERENTIAL YES; Platelet Count 301 K/mm3 (150-450); RBC Distribution Width CV 14.1 % (11.6-14.6); RBC Distribution Width SD 41.3 fl (35.1-43.9); Red Blood Count 4.53 M/mm3 (4.2-5.4); White Blood Count 15.6 K/mm3 (4.4-11.0)
[2025-01-10] MEDS: Ondansetron 4 MG/2 ML Vial IV ×2 (07:06→12:01)
[2025-01-10] MEDS: 0.9% Normal Saline (1000mL) 1,000 ML 999 ML IV (07:06)
[2025-01-10] MEDS: Morphine 4 MG/ML Syringe IV ×2 (07:06→08:26)
[2025-01-10 07:10] LABS: Internal QC Validated? YES +Cl - CLEAR BKGD; Pregnancy, Serum, hCG Quali. NEGATIVE Negative
[2025-01-10] MEDS: Acetaminophen 500 MG Tablet 1000 MG PO ×2 (07:11→19:46)
[2025-01-10 07:13] LABS: Differential Indicated SCAN CRITERIA MET
[2025-01-10 07:43] LABS: Differential Comment SCANNED
[2025-01-10 08:24] LABS: Mucous, Urine 0 SEEN /hpf (<or=2+)
[2025-01-10 08:25] LABS: Lipase 16 U/L (73-393)
[2025-01-10 08:37] LABS: ALB/GLOB Ratio 0.8 RATIO (0.9-2.4); AST(SGOT) 14 U/L (15-37); Alanine Aminotransfer ALT/SGPT 26 U/L (13-56); Albumin, Serum 3.6 g/dL (3.2-5.0); Alkaline Phosphatase 116 U/L (45-117); Anion Gap 10 (5-15); BUN 12 mg/dL (7-18); BUN/Creat Ratio 13.9 RATIO (10-20); Calcium,Total 9.4 mg/dL (8.5-10.1); Chloride 103 mmol/L (98-107); Creatinine, Serum 0.86 mg/dL (0.55-1.02); EST Glomerular Filtration Rate 84 mL/min (>60); Est Glom Filt Rate - Afr Amer 102 mL/min (>60); Estimated Creatinine Clearance 79.66 ml/min; Globulin 4.4 g/dL (2.2-4.2); Glucose 130 mg/dL (74-106); Potassium 3.3 mmol/L (3.5-5.1); Sodium Level 135 mmol/L (136-145)
[2025-01-10 08:42] LABS: Color, Urine Yellow (Yellow); Glucose, Dipstick Normal (Normal); Ketone-Dipstick 5 mg/dl (Negative); Leukocyte Esterase-Dipstick 25 /ul (Negative); Nitrite-Dipstick Negative (Negative); Occult Blood-Urine 10 /ul (Negative); Protein-Dipstick 30 mg/dl (Negative); Urine Bilirubin Dipstick Negative (Negative); Urine Clarity Clear (Clear); Urine Urobilinogen 12 mg/dl (Normal)
[2025-01-10 08:52] LABS: Bacteria RARE /hpf (None Seen); Red Blood Cells-Urine 0-5 SEEN /hpf (0-5); Squamous Epithelial Cells - UA 0-5 SEEN /hpf (5-10); White Blood Cells 0-5 SEEN /hpf (0-5)
--- NOTE | 2025-01-10 08:54 | US_ITS ---
PROCEDURE: GALLBLADDER REASON FOR EXAM: Right upper quadrant pain COMPARISON: None FINDINGS: Liver: Measures 17 cm and with normal echotexture. Gallbladder: Multiple mobile gallstones with gallbladder wall measuring 2.6 mm. There is a positive sonographic Rothman's sign. Common bile duct: 8.1 mm Pancreas: Visualized portions are sonographically unremarkable. Right kidney measures 12.2 x 4.7 x 4.4 cm.. No right upper quadrant ascites. US/Gallbladder IMPRESSION: Sonographic findings consistent with acute cholecystitis. Reading Location: [facility]
[2025-01-10] MEDS: Piperacil/Tazobactam 3.375 GM in 0.9% Normal Saline (50mL MB+) 50 ML IV ×2 (11:18→21:38)
[2025-01-10] MEDS: Lorazepam 2 MG/ML WCH Syringe 0.5 MG IV (11:53)
[2025-01-10] MEDS: HYDROmorphone 1 MG/ML Syringe 0.5 MG IV (11:55)
--- NOTE | 2025-01-10 15:13 | PRE.ANES_ITS ---
ASA Classification* ASA Classification ASA Classification: 2 and E Assessment & Plan Anesthesia* Anesthesia Assessment Anesthesia Assessment: Discussed sedation and/or anesthesia options, risks, benefits, and alternatives with patient/parents/legal guardian/POA. Questions invited. The patient/parents/legal guardian/POA seems to understand and agrees to proceed with anesthesia plan. Reviewed the physical assessment, medical history, allergy history and patient home medications list prior to surgery/procedure/anesthetic and documented any changes. Performed airway and anesthesia risk assessments. Anesthesia Type Anesthesia Type: General History Source History Obtained from:: Patient and Chart Anesthesia Focused Assessment* Temperature: 99.5 F Pulse Rate: 108 Blood Pressure: 138/58 Respiratory Rate: 15 Pulse Ox: 95 Oxygen Delivery Method: Room Air Airway Assessment Mouth opens: >3 cm Mallampati Score: IV Teeth Condition: Chipped/Broken (Patient has broken tooth #9 incisor. Also broken molars lower jaw back both sides) Neck Range of motion (ROM): Full ROM Focused Labs Anesthesia Preop lab: CBC WBC 15.6 K/mm3 (4.4-11.0) H 01/10/25 06:34 5 RBC 4.53 M/mm3 (4.2-5.4) 01/10/25 06:34 01/10/25 Hgb 11.7 g/dL (12.0-15.0) L 01/10/25 06:34 5 Hct 36.3 % (37-47) L 01/10/25 06:34 01/10/25 Plt Count 301 K/mm3 (150-450) 01/10/25 06:34 01/10/25 CHEMISTRY Potassium 3.3 mmol/L (3.5-5.1) L 01/10/25 06:34 01/10/25 Sodium 135 mmol/L (136-145) L 01/10/25 06:34 01/10/25 Magnesium 1.9 mg/dL (1.6-2.6) 03/08/24 06:36 03/08/24 Phosphorus 2.3 mg/dL (2.5-4.9) L 03/08/24 06:36 03/08/24 BUN 12 mg/dL (7-18) 01/10/25 06:34 01/10/25 Creatinine 0.86 mg/dL (0.55-1.02) 01/10/25 06:34 01/10/25 Glucose 130 mg/dL (74-106) H 01/10/25 06:34 01/10/25 TSH 1.050 uIU/mL (0.358-3.740) 10/02/24 14:40 09/23 COAG HCG, Quant 1614 mIU/mL (1-3) H 01/25/20 21:05 01/25/20 Urine Test Negative Negative 11/03/24 23:17 11/03/24 Pre-Assessment Diagnosis/Proposed Procedure Planned Operative Procedure(s): Laparoscopic cholecystectomy with intraoperative cholangiograms. Anesthesia History Anesthesia History - curriculum assistant principal: Anesthesia History - curriculum assistant principal Hx Hospitalization No 02/08/20 19:39 Any Problems With Anesthesia Cholinesterase deficiency You/Your Family Experience fever (hyperthermia) with Relationship Recent Exposure to Contagious Disease Does patient have nerve stimulator Patient instructed to have device shut off --Does patient have Pacemaker or ICD? When Was Last Pacemaker Check QUESTION #4 FULL TEXT: You/Your Family Experience fever (hyperthermia) with Anesthesia Last Oral Intake Last Oral intake: Last Oral Intake NPO since Meds taken in AM with sips of water? Meds patient instructed to take am of surgery Any additional information?: Yes NPO since: 00:00 Meds taken in AM with sips of water?: Yes PONV PONV - curriculum assistant principal: PONV - curriculum assistant principal Female HX of Motion Sickness HX of N/V After Surgery Non-Smoker Duration of Surgery greater than 60 minutes Number of Risk Factors PONV Score Height & Weight Height & Weight: Anesthesia: Height & Weight Height 5 ft 01/10/25 06:21 Weight: 57.9 kg 01/10/25 06:21 Body Mass Index (BMI) 24.9 01/10/25 06:21 Respiratory Assessment Respiratory Assessment - curriculum assistant principal: Respiratory Tract Infection Hx - curriculum assistant principal Hx Respiratory Tract Infection Any additional information?: Yes Hx Respiratory Tract Infection: No STOP Sleep Apnea STOP Sleep Apnea - curriculum assistant principal: STOP Sleep Apnea - curriculum assistant principal Hx Hypertension No 03/06/24 21:22 Hx Sleep Apnea No 03/06/24 21:22 CPAP BIPAP Do you snore loudly (louder than talking or can be heard Do you often feel tired/ fatigued/ sleepy during daytime? Has anyone observed you stop breathing during sleep? STOP Results QUESTION #5 FULL TEXT : Do you snore loudly (louder than talking or can be heard through closed doors)? Tobacco Use History Tobacco Use History - curriculum assistant principal: Tobacco Use History - curriculum assistant principal Tobacco Use Smoking Status Current every day smoker 01/10/25 06:21 Hx Tobacco Use No 03/06/24 21:22 Years Smoking Packs Smoked per Day Smoking Cessation Date was within the last 15 years Hx Smoking Cessation Date Hx Smoking Cessation Counseling Any additional information?: Yes Tobacco Use: Vapor (Patient vaped today.) Hematologic Medial History Hematologic Hx - curriculum assistant principal: Hematologic Medical Hx - fitter machinist Hx of Blood Transfusion Hx of Transfusion in last 3 Months Date of Last Transfusion (if within last 3 months) Ever experience any problems with transfusion(s)? Specify any problems Hx of Preganancy in last 3 Months Nurse Filling Out Transfusion & Questions: Date: Time: Patient unable to answer at this time (ie. confused, unrespo /Reproduction History /Reproductive History - curriculum assistant principal: /Reproductive Hx- curriculum assistant principal Hx Now Gestational Age (in weeks): EDC: Hx Hx Para Hx Section SAB No 01/10/25 06:21 PFSH Medical History UTI (urinary tract infection) Migraines Asthma SVT (supraventricular tachycardia) Home Medications ?Medication ?Instructions ?Recorded ?Last Taken ?Type paliperidone 6 mg tablet,extended 6 mg PO QHS 12/11/24 01/08/25 History release 24 hr buspirone 7.5 mg tablet 7.5 mg PO BID PRN anxiety Unknown History famotidine 20 mg tablet (Pepcid) 20 mg PO BID PRN abby 01/10/25 Unknown History promethazine 25 mg tablet 25 mg PO TID PRN nausea/vomi ting 01/10/25 Unknown History Allergy/AdvReac Type Severity Reaction Status Date / Time diphenhydramine (From Allergy CHILDHOOD Verified 01/10/25 06:23 Benadryl) ALLERGY Surgical History (Updated 01/10/25 @ 15:[address] Candido Tuttle MD) H/O cardiac radiofrequency ablation History of Social History household members: family Smoking Status: Current every day smoker tobacco type: e-cigarettes and smokeless tobacco Review of Systems (Anesthesia) ROS Narrative System reviewed and no additional complaints, except as documented.
--- NOTE | 2025-01-10 15:30 | GALL_PTH ---
PATIENT: PHYLLIS TATE LOC: [facility] U#:[id number] AGE/SX: 24/F ROOM: [facility] RE01/10/[address]: Dr. Rajendra Stubbs MD : 2000 BED: 1 DIS: 01/12/2025 SPEC #: [id number] RECD: 01/11/25 11:03 STATUS: SINDY SHIN #: [id number] BYRON: 01/10/25 15:[address]: Rajendra Stubbs DEPT: SURGICAL PATHOLOGY RECD BY: Christie Mcguire ENTERED: 01/11/25 12:09 SP TYPE: KIRK TURCIOS DR: No Primary Care Phys Tissues: Gallbladder, NOS Procedures: Surgery Specimen Level III HEADER OPERATION: Laparoscopic, cholecystectomy with IOC PRE-OP DIAGNOSIS: Abdominal pain TISSUE SUBMITTED: Gallbladder MICROSCOPIC DIAGNOSIS Gallbladder, cholecystectomy: Chronic cholecystitis and cholelithiasis. SJ.mr 01/12/2025 MICROSCOPIC DESCRIPTION Slides are reviewed. GROSS DESCRIPTION Received is one container labeled with the patient's name and designated gallbladder. The specimen consists of a gallbladder measuring 6.5 cm in length and up to 3 cm in diameter. The external surface is pink-cuevas, smooth and glistening for the most part. Focally it is granular, hemorrhagic and contains cautery artifact. The gallbladder contains green-yellow mucoid bile and multiple multi-faced greenish-yellow stones and stone fragment measuring in aggregate 5 x 4 x 1.5cm and 0.3 - 2.5 cm in greatest dimension. The mucosa is bile-stained and without any mass lesions. The gallbladder wall measures up to 0.3cm in thickness. Bag Adjuster sections from the gallbladder and the cystic duct are submitted in one cassette. / SJ: 01/11/2025 TC:3 CPT: 11480
--- NOTE | 2025-01-10 15:39 | PCM.HP.STD ---
HPI - General General Date of Admission: 01/10/25 Date of Service: 01/10/25 Chief Complaint: Right upper quadrant and right flank pain HPI Narrative PHYLLIS TATE, is a 24 F who presented overnight to the emergency department with chief complaint of right-sided flank and right upper quadrant pain along with nausea and vomiting. She states that this has been present for several days. States that the pain began mostly in the right flank and back region. She states initially she thought this may be her kidney issues. She has had issues with kidney stones in the past. Her pain has been persistent which brought her to the emergency room. She was seen evaluate by the ER staff. She was found to have a white count of 15,000. Bilirubin was slightly elevated. CT scan was performed and showed initially no findings other than possible right pyelonephritis. Her UA was reportedly negative and ER doctor did not feel that this would be possible with pyelonephritis and so then ordered an ultrasound of the right upper quadrant. This showed gallstones and no gallbladder wall thickening. Her abdomen is then reexamined and was found to have right upper quadrant pain and so a general surgery consult was obtained at that point. She was admitted. I saw the patient today. Pain mostly in the right upper quadrant but also quite significantly in the right flank. She states she has had issues with her gallbladder in the past as well as her kidney. She is uncertain if her current pain seems more like one of the other. She has not really noticed any association with fatty foods with this current episode of pain. She has been told she has had gallstones in the past. [facility] Medical History UTI (urinary tract infection) Migraines Asthma SVT (supraventricular tachycardia) Home Medications ?Medication ?Instructions ?Recorded ?Last Taken ?Type paliperidone 6 mg tablet,extended 6 mg PO QHS 12/11/24 01/08/25 History release 24 hr buspirone 7.5 mg tablet 7.5 mg PO BID PRN anxiety 01/10/25 Unknown History famotidine 20 mg tablet (Pepcid) 20 mg PO BID PRN abby 01/10/25 Unknown History promethazine 25 mg tablet 25 mg PO TID PRN nausea/vomiting 01/10/25 Unknown History Allergy/AdvReac Type Severity Reaction Status Date / Time diphenhydramine (From Allergy CHILDHOOD Verified 01/10/25 06:23 Benadryl) ALLERGY Surgical History H/O cardiac radiofrequency ablation History of Social History household members: family Smoking Status: Current every day smoker tobacco type: e-cigarettes and smokeless tobacco Vital Signs Vital Signs Vital Signs: 01/10/25 06:21 01/10/25 06:25 01/10/25 07:25 Temperature 98.2 F 98.2 F 99.9 F H Temperature Source Oral Oral Oral Pulse Rate 108 H 108 H 96 Respiratory Rate 17 18 18 Blood Pressure 125/81 H 125/81 H 109/68 Blood Pressure Mean 95 95 81 Pulse Ox 98 98 95 Oxygen Delivery Method Room Air Room Air Room Air 01/10/25 08:00 01/10/25 10:00 01/10/25 11:00 Temperature 98.2 F 98.3 F 98.7 F Temperature Source Oral Oral Oral Pulse Rate 105 H 116 H 98 Respiratory Rate 16 16 16 Blood Pressure 108/62 158/87 H 123/90 H Blood Pressure Mean 77 110 101 Pulse Ox 97 98 98 Oxygen Delivery Method Room Air Room Air Room Air 01/10/25 12:00 01/10/25 13:00 01/10/25 14:17 Temperature 98.7 F 99.5 F H 99.5 F H Temperature Source Oral Oral Pulse Rate 78 106 H 108 H Respiratory Rate 16 18 15 Blood Pressure 122/64 H 114/68 138/58 H Blood Pressure Mean 83 83 84 Pulse Ox 98 99 95 Oxygen Delivery Method Room Air Room Air 01/10/25 15:23 Temperature 99.5 F H Temperature Source Pulse Rate 108 H Respiratory Rate 15 Blood Pressure 138/58 H Blood Pressure Mean Pulse Ox 95 Oxygen Delivery Method Room Air Weight Weight: 127 lb 10.362 oz Body Mass Index (BMI) 24.9 Physical Exam Narrative She is alert and oriented x 3. No acute distress. She has moderate tenderness in the right flank and right upper quadrant. No rebound or guarding. Results Lab / Micro Data 01/10/25 06:34 01/10/25 06:34 Labs: Laboratory Results - last 24 hr 01/10/25 06:34: WBC 15.6 H, RBC 4.53, Hgb 11.7 L, Hct 36.3 L, MCV 80.1 L, MCH 25.8 L, MCHC 32.2, RDW Std Deviation 41.3, RDW Coeff of Jessica 14.1, Plt Count 301, MPV 11.1, Immature Gran % (Auto) 0.500, Neut % (Auto) 84.8 H, Lymph % (Auto) 3.7 L, [place] % (Auto) 10.6 H, Eos % (Auto) 0.1, Baso % (Auto) 0.3, Absolute Neuts (auto) 13.2 H, Absolute Lymphs (auto) 0.57 L, Nucleated RBC % 0, Differential Comment SCANNED, Diff Path Review March, Sodium 135 L, Potassium 3.3 L, Chloride 103, Carbon Dioxide 22.0, Anion Gap 10, BUN 12, Creatinine 0.86, Estim Creat Clear Calc 79.66, Est GFR (MDRD) Af Amer 102, Est GFR (MDRD) Non-Af 84, BUN/Creatinine Ratio 13.9, Glucose 130 H, Calcium 9.4, Total Bilirubin 1.10 H, AST 14 L, ALT 26, Alkaline Phosphatase 116, Total Protein 8.0, Albumin 3.6, Globulin 4.4 H, Albumin/Globulin Ratio 0.8 L, Lipase 16 L, Serum , Qual NEGATIVE 01/10/25 08:19: Urine Color Yellow, Urine Clarity Clear, Urine pH 7.0, Ur Specific [place] 1.010, Urine Protein 30 H, Urine Glucose (UA) Normal, Urine Ketones 5 H, Urine Occult Blood 10 H, Urine Nitrite Negative, Urine Bilirubin Negative, Urine Urobilinogen 12 H, Ur Leukocyte Esterase 25 H, Urine RBC 0-5 SEEN, Urine WBC 0-5 SEEN, Ur Squamous Epith Cells 0-5 SEEN, Urine Bacteria RARE, Urine Mucus 0 SEEN, Urine Test Cancelled Micro: Microbiology 01/10/25 07:05 Mucosa - Nose SARS-CoV-2, Influenza & RSV (PCR) - Final Imaging Radiology Impression Abdomen/Pelvis CT 01/10/25 06:55 IMPRESSION: 1. Wedge-shaped hypoenhancement along the mid right renal cortex, compatible with acute pyelonephritis. 2. Mild hepatomegaly. 3. Stable cholelithiasis without evidence of acute cholecystitis. One or more dose reduction techniques were used (e.g., Automated exposure control, adjustment of the mA and/or kV according to patient size, use of iterative reconstruction technique). Reading Location: [id number] Gallbladder Ultrasound 01/10/25 08:54 IMPRESSION: Sonographic findings consistent with acute cholecystitis. Reading Location: [facility] Assessment & Plan Assessment/Plan (1) Abdominal pain: PLAN: Plan The patient is a 24-year-old female with right upper quadrant and right flank pain. Possibility etiologies for her pain is either acute cholecystitis versus possible pyelonephritis. We discussed the possibility that cholecystectomy may not necessarily relieve her pain if this does t rail turner to be a kidney issue. She is understanding of this. We discussed alternatives of treating with antibiotics versus proceeding with surgery. She states that she would like to get the gallbladder out and understands the risks benefits and alternatives. Surgery will begin momentarily Charges/Coding Visit Charges Inpatient E&M: 35617 Init Hosp L3
[2025-01-10] MEDS: Bupiv/Epi 0.25% 30 ML Vial (16:05)
--- NOTE | 2025-01-10 16:10 | RAD_ITS ---
EXAM: INTRAOPERATIVE FLUOROSCOPY COMPARISON: None TECHNIQUE: 1 intraoperative images and 1 cine clip are submitted for review. FINDINGS: Intraoperative cholangiogram status post cholecystectomy demonstrates no evidence of biliary leak. No intrahepatic or extrahepatic biliary dilatation. Contrast flows directly into the small bowel. No significant stenoses. No filling defects. RAD/Cholangiogram/ O R,Initial IMPRESSION: As above Reading Location: [facility]
--- NOTE | 2025-01-10 17:06 | OP.PCM_ITS ---
Problems Associated Problem List Diagnoses (1) Abdominal pain: Procedures Digestive 40xxx-49xxx: 30993 Laparo cholecystectomy/graph Operative Report (Standard) Operative Information Date of Procedure: 01/10/25 Pre-Operative Diagnosis: abdominal pain Post-Operative Diagnosis: chronic cholecystitis / cholelithiasis Surgery/Procedure Performed: laparoscopic cholecystectomy with cholangiograms color room attendant: Yes Sweat Box Attendant: Deborah Willard Tasks completed by neurology physician assistant: Closing and Retracting Additional sales assistants and salespersons?: No Type of Anesthesia: General and Local RN Documented Start/Stop Times: Operation Date: 01/10/25 15:30 Case Time Into Pre-Op 01/10/25 14:23 Anesthesia Start 01/10/25 15:49 Into Room 01/10/25 15:49 Procedure Start 01/10/25 16:05 Procedure End 01/10/25 17:05 Anesthesia End 01/10/25 17:13 Out of Room 01/10/25 17:13 Into Recovery 01/10/25 17:15 Procedure Start Time: 16:05 Procedure Stop Time: 17:05 Select all DRAINS/GRAFTS/IMPLANTS that apply: None Estimated Blood Loss: 10 ML Specimen collected: Yes Description of specimen(s) removed: gallbladder Description of surgery: The patient is a 24-year-old female who presented to the [place] emergency room with several days of right upper quadrant/right flank pain. She was seen evaluate by the ER physician this morning. She is found have a white count of 15,000. CT scan was performed and showed gallstones but no gallbladder wall thickening. There was question of pyelonephritis however urinalysis was negative for bacteria and so this was not felt to be at the top of the differential diagnosis list. Ultrasound of the right upper quadrant was performed and again showed gallstones along with a 2.6 mm gallbladder wall. There is no pericholecystic fluid. Her bilirubin was slightly elevated at just over 1.1. Surgery consult was obtained. This was originally thought to be cholecystitis however her history was also concerning for possible pyelonephritis given the location of her pain. Prior to surgery we had a very lengthy discussion that the fact that it is very difficult to determine the exact etiology for her pain. There is certainly concern for cholecystitis given her symptoms. I did discuss the possibility that her gallbladder might not be the source for her pain and the possibility that surgery to take out her gallbladder may not relieve her pain. At the end of our lengthy discussion we decided to go ahead and proceed with cholecystectomy as she has had issues with symptomatic cholelithiasis in the past. The patient was brought to the operating room today following informed consent she was placed supine on the operative table with arms outstretched on arm boards. A general endotracheal anesthesia was induced. The abdomen was then prepped and draped in the usual sterile manner. A 5 mm incision was made just below the umbilicus which a 5 mm trocar was placed optically. This was placed without incident. Once in place the abdomen is then fully insufflated with CO2 gas. A 5 mm 0 degree scope was inserted. There were no signs of bowel or vascular injury. The gallbladder was readily visible and appeared somewhat thickened but otherwise did not have any omentum adherent to the gallbladder. Next two 5 mm trocars were placed in the right upper quadrant under direct visualization. Finally a 10 mm trocar was placed in the epigastric area. The gallbladder was then grasped and reflected in cephalad direction. The infundibulum of the gallbladder was dissected. This was performed by incising the peritoneum on either side of the gallbladder. Peritoneum was then carefully dissected off of the infundibulum using a [place] dissector as well as a laparoscopic [place]. There was a moderate amount of chronic scarring both at the infundibulum as well as around the gallbladder wall itself. There really was no significant acute edema. Eventually the cystic duct and cystic artery were dissected out circumferentially. Critical view of safety was achieved. At this point a 10 mm clip was placed on the gallbladder side the cystic duct. Scissors were then used to make a small ductotomy. There was positive return of bile. Cholangiogram catheter was inserted and cholangiograms were then perform ed using 10 cc of Omnipaque. This showed good opacification of the biliary tree without obvious filling defects. The cholangiogram catheter was then removed. 310 mm clips were placed across the cystic duct stump and this was then transected. The cystic artery was then clipped and transected in a similar manner. The gallbladder was then carefully bovied off the undersurface of the liver. Once this was freed it was placed into a bag and brought out through the 10 mm trocar site. The fascia did need to be stretched in order to remove the thickened gallbladder and contents. There were clearly stones within the gallbladder. The liver bed was examined. Couple areas were cauterized to ensure excellent hemostasis. The right upper quadrant and copiously irrigated and suctioned clear and dry. The fascia at the 10 mm trocar site was closed using 0 PDS with the aid of the suture passer/closure device. The remaining trocars were opened up. Insufflation was allowed to escape. Local anesthetic was injected into each of the incisions. The incision was then closed with 4-0 Vicryl. Skin glue was applied as dressing. She was awakened from anesthesia and taken to recovery in good condition A DOCTOR OF NATUROPATHIC MEDICINE was utilized as a early childhood assistant. His role included holding the camera, retracting the gallbladder and assistance with skin closure. Surgical Findings: chronic inflammation of gallbladder; normal cholangiograms Complications Complications: No Admit VTE Documentation VTE Present on Admission: No VTE Mechan Device Prophylaxis: SCD's VTE Pharm Prophylaxis ordered?: No Reason prophylaxis not ordered: Treatment Not Indicated
--- NOTE | 2025-01-10 17:20 | PCM.POST.ANE ---
Anesthesia: Postop Eval I Current Vital Signs Temperature: 101.3 F Pulse Rate: 116 Blood Pressure: 132/81 Respiratory Rate: 16 Pulse Ox: 96 Oxygen Delivery Method: Room Air Assessment Airway patent: Yes Spontaneous unlabored respirations: Yes Mental status: Awake nausea: No Vomiting: No Anesthesia Complication: No Fluid Hydration Crystalloid volume administer (ml): 1,300 Total IV fluid infused: 1,300 Progress Note Anesthesia document: Postop Eval 1 completed: Yes
--- NOTE | 2025-01-10 18:57 | PCM.POSTANE2 ---
Anesthesia Postop Eval I Sum Postop Eval Completion status Anesthesia document: Postop Eval 1 completed: Yes Anesthesia Postop Eval I Summary Anesthesia Postop Eval I Summary: Anesthesia Postop Eval I: Assessment Summary Airway patent Yes 01/10/25 17:26 Spontaneous unlabored Yes 01/10/25 17:26 respirations Mental status Awake 01/10/25 17:26 nausea No 01/10/25 17:26 Vomiting No 01/10/25 17:26 Anesthesia Postop Eval I: Fluid Summary Crystalloid volume administer 1,300 01/10/25 17:26 (ml) Colloids volume administered ( ml) Blood Product volume administered (ml) Total IV fluid infused 1,300 01/10/25 17:26 Anesthesia Postop Eval I: Summary Notes Anesthesia Complication No 01/10/25 17:26 Anesthesia Complication Comment: Post-operative progress note Anesthesia: Postop Eval II Evaluation Mental status: Awake and Calm Pain Level: 2 nausea: No Vomiting: No Complications Anesthesia Complication: No
[2025-01-10] MEDS: Morphine 2 MG/ML Syringe IV (21:38)
[2025-01-10] MEDS: 0.9% Saline Lock 10 ML Syringe IV (21:38)
[2025-01-11 00:24] VITALS: BP 118/58; PULSE 78; RESP 16; TEMP 36.4; O2SAT 96
[2025-01-11] MEDS: oxyCODONE 5 MG Tablet PO ×4 (00:26→20:23)
[2025-01-11 04:43] VITALS: BP 109/64; PULSE 74; RESP 16; TEMP 35.7; O2SAT 96
[2025-01-11] MEDS: Acetaminophen 500 MG Tablet 1000 MG PO ×3 (04:51→22:45)
[2025-01-11] MEDS: Piperacil/Tazobactam 3.375 GM in 0.9% Normal Saline (50mL MB+) 50 ML IV ×3 (04:52→22:46)
--- NOTE | 2025-01-11 08:28 | PN.SURG_ITS ---
Subjective Subjective Patient evaluated resting comfortably in bed. She notes incisional pain. She states her nausea has resolved since the procedure. She notes the abdominal pain and flank pain have become much less since the procedure. She states she ate a turkey sandwich last night for dinner without any concerns. She notes passing flatus. She is hydrating well. Objective Data Objective Data Vital Signs: Vital Signs Temp Pulse Resp BP Pulse Ox O2 Del Method O2 Flow Rate 96.3 F L 74 16 109/64 96 Room Air 4 01/11/25 04:43 01/11/25 04:43 01/11/25 04:43 01/11/25 04:43 01/11/25 04:43 01/11/25 04:43 01/10/25 17:35 Oxygen Flow Rate (L/min) 4 Oxygen Delivery Method Room Air Weight: 127 lb 10.362 oz Body Mass Index (BMI) 25.0 Intake & Output: Intake and Output for Last 24 Hours 01/09/25 01/10/25 01/11/25 23:59 23:59 23:59 Intake Total 1050 / 1050 1050 / 1050 Output Total 250 / 250 Balance 1050 / 1050 800 / 800 Lab / Micro Data 01/10/25 06:34 01/10/25 06:34 Labs: Laboratory Results - last 24 hr 01/10/25 06:34: Sodium 135 L, Potassium 3.3 L, Chloride 103, Carbon Dioxide 22.0, Anion Gap 10, BUN 12, Creatinine 0.86, Estim Creat Clear Calc 79.66, Est GFR (MDRD) Af Amer 102, Est GFR (MDRD) Non-Af 84, BUN/Creatinine Ratio 13.9, G lucose 130 H, Calcium 9.4, Total Bilirubin 1.10 H, AST 14 L, ALT 26, Alkaline Phosphatase 116, Total Protein 8.0, Albumin 3.6, Globulin 4.4 H, A lbumin/Globulin Ratio 0.8 L 01/10/25 08:19: Urine Color Yellow, Urine Clarity Clear, Urine pH 7.0, Ur Specific [place] 1.010, Urine Protein 30 H, Urine Glucose (UA) Normal, Urine Ketones 5 H, Urine Occult Blood 10 H, Urine Nitrite Negative, Urine Bilirubin Negative, Urine Urobilinogen 12 H, Ur Leukocyte Esterase 25 H, Urine RBC 0-5 SEEN, Urine WBC 0-5 SEEN, Ur Squamous Epith Cells 0-5 SEEN, Urine Bacteria RARE, Urine Mucus 0 SEEN, Urine Test Cancelled Micro: Microbiology 01/10/25 07:05 Mucosa - Nose SARS-CoV-2, Influenza & RSV (PCR) - Final Radiography Diagnostic Testing: Radiology Impression Gallbladder Ultrasound 01/10/25 08:54 IMPRESSION: Sonographic findings consistent with acute cholecystitis. Reading Location: [facility] Cholangiogram 01/10/25 16:10 IMPRESSION: As above Reading Location: [facility] Physical Exam GI GI Narrative: Abdomen- tenderness to palpation especially near the incision sites. Incisions c/d/i. No erythema or infection noted. Flank- pain has resolved and is no longer as tender on examination Assessment & Plan Assessment/Plan (1) Abdominal pain: QUALIFIERS: Abdominal location: right upper quadrant Qualified Code(s): R10.11 - Right upper quadrant pain PLAN: I am following this patient in conjunction with Dr. Stubbs. He has independently evaluated this patient. Labs ordered Continue IV antibiotics. Will switch to oral antibiotics for discharge Patient on regular diet Patient seems to be recovering well Hopeful discharge later today Charges/Coding Visit Charges Inpatient E&M: 41752 Subs Hosp L1 (no charge; post-op)
[2025-01-11 08:35] VITALS: BP 112/43; PULSE 61; RESP 18; TEMP 36.3; O2SAT 97
--- NOTE | 2025-01-11 08:54 | DCINST_ITS ---
Discharge Instructions Diet Discharge Diet: Light diet - advance as tolerated DC O2, CPAP, BIPAP needs Home O2 Discharge instructions: No Dressing / Incision Discharge Activity: May Not Drive (3-5 days or while taking narcotic pain medication) Lifting Restrictions: No lifting greater than 20 pounds x 4 weeks Dressing / Incision Call your doctor if your incision/area has: Continuous Slow Oozing, Sudden Increased Bleeding, Increased Pain/ Swelling, Increased Redness, Foul Smelling Discharge and Swelling at the incision site Call your doctor if you observe: Fever of 101 or Higher Suture Line Care: Avoid Pulling/Pushing and Avoid Pinching/Bending Cleanse incision/area with: Soap & Water Follow Up Care Please Follow Up With: Beverley Cuellar PA-C When: Please contact our office at [phone], opt. #2 to schedule a 2 week follow-up Test Results: Test results from this visit will be discussed in further detail at your follow- up appointment, if applicable. Discharge Plan Admission Admit Date/Time: 01/10/25 11:21 Primary Reason for Your Visit: Chronic cholecystitis; Acute pyelonephritis Attending Provider: Rajendra Stubbs Primary Care Provider: Care Physician,No Primary Instructions Additional Instructions / Restrictions: Cholecystectomy Diet ? Start light with soups and soft bland foods. You may advance diet as tolerated. Activity ? You may drive in 3-5 days but not while taking narcotic pain medication. ? I encourage walking. You may go up steps, one at a time. ? Do not swim or use hot tubs for 2 weeks. ? For comfort, you may use warm compresses or ice as needed for 15-20 minutes at a time. Lifting ? You may lift up to 20 pounds for 4 weeks. Dressings/Incision ? You may shower over your incisions ? Do NOT tub bathe for 1 week Medications ? Anesthesia used during surgery and pain medications may cause constipation. I recommend initiating on the day of surgery a fiber supplement like, Metamucil, Citrucel, FiberCon, Benefiber, or a generic form of these medications. 1 heaping tablespoon in water daily. You may continue to utilize any bowel regimen or oral laxatives that you routinely take. ? As long as you are not intolerant to Tylenol, acetaminophen, ibuprofen, Motrin, Advil, Aleve, or similar medications, I would recommend transitioning to these [id number] medicines as soon as possible instead of continued use of narcotic pain medication. Follow up ? You should call [facility] soon after surgery, at [phone] option 2 to make a follow up appointment for 14 days after your surgery. Discharge Orders/Prescriptions Prescriptions: New acetaminophen 500 mg Tablet 1,000 mg PO Q8 Qty: 0 0RF oxycodone 5 mg Tablet 5 mg PO Q6H PRN PRN (Reason: Pain Score 4-10) 3 Days Qty: 10 0RF sulfamethoxazole-trimethoprim [Bactrim DS] 800-160 mg tablet 1 tab PO BID 8 Days Qty: 16 0RF Continued paliperidone 6 mg tablet extended release 24hr 6 mg PO QHS famotidine [Pepcid] 20 mg tablet 20 mg PO BID PRN (Reason: abby) buspirone 7.5 mg tablet 7.5 mg PO BID PRN (Reason: anxiety) promethazine 25 mg tablet 25 mg PO TID PRN (Reason: nausea/vomiting) Referrals / Follow Up: Care Physician,No Primary [Primary Care Provider] - Beverley Cuellar PA-C [Med Staff - Adv Practice Prof] - 01/24/25 Disposition Disposition (needs filled in before D/C Order can be placed): Home, Self Care
[2025-01-11 09:24] LABS: Absolute Lymphocyte Count 0.46 X10^3/uL (0.83-4.51); Absolute Neutrophil Count 9.8 X10^3/uL (2.0-7.7); Basophil# 0.01 X10^3/uL; Basophil% 0.1 % (0-1); Hematocrit 30.8 % (37-47); Hemoglobin 9.7 g/dL (12.0-15.0); Lymphocyte # 0.46 X10^3/ul (0.83-4.51); Lymphocyte % 4.3 % (19-41); Mean Corp Hgb Conc 31.5 g/dL (32-36); Mean Corpuscular Hgb 25.9 pg (27.0-32.0); Mean Corpuscular Volume 82.1 fL (81-99); Mean Platelet Vol. 10.7 fl (6.2-12.0); Monocyte# 0.35 X10^3/uL; Monocyte% 3.3 % (0-10); NRBC Flagged by Analyzer 0 % (0-5); Neutrophil # 9.79 X10^3/uL (2.7-7.7); Neutrophil % 91.7 % (47-70); POSITIVE DIFFERENTIAL YES; Platelet Count 269 K/mm3 (150-450); RBC Distribution Width CV 14.6 % (11.6-14.6); RBC Distribution Width SD 44.1 fl (35.1-43.9); Red Blood Count 3.75 M/mm3 (4.2-5.4); White Blood Count 10.7 K/mm3 (4.4-11.0)
[2025-01-11] MEDS: LORazepam 1 MG Tablet PO (13:06)
[2025-01-11] MEDS: 0.9% Saline Lock 10 ML Syringe IV ×2 (13:06→22:48)
[2025-01-11] MEDS: Ketorolac 30 MG/ML Syringe IM ×2 (13:06→22:45)
--- NOTE | 2025-01-11 14:59 | CASEMGMT ---
ZEINA CM into pt room, pt lying in bed. Pt does not have a PCP but states a SW already came in and gave a pamphlet of local PCP's. Pt denies further needs at this time.
[2025-01-11 15:15] VITALS: BP 102/64; PULSE 69; RESP 18; TEMP 36.4; O2SAT 96
--- NOTE | 2025-01-11 15:28 | PCM.PN.SRG ---
Subjective Subjective Patient still with incisional pain albeit improving. Patient has quite a bit of discomfort with ambulation. Suspect she will need to remain hospitalized for pain control. Hopefully discharge tomorrow Objective Data Objective Data Vital Signs: Vital Signs Temp Pulse Resp BP Pulse Ox O2 Del Method O2 Flow Rate 97.5 F L 69 18 102/64 96 Room Air 4 01/11/25 15:15 01/11/25 15:15 01/11/25 15:15 01/11/25 15:15 01/11/25 15:15 01/11/25 15:15 01/10/25 17:35 Oxygen Flow Rate (L/min) 4 Oxygen Delivery Method Room Air Weight: 127 lb 10.362 oz Body Mass Index (BMI) 25.0 Intake & Output: Intake and Output for Last 24 Hours 01/09/25 01/10/25 01/11/25 23:59 23:59 23:59 Intake Total 1050 / 1050 1100 / 1100 Output Total 250 / 250 Balance 1050 / 1050 850 / 850 Lab / Micro Data 01/11/25 09:12 01/10/25 06:34 Labs: Laboratory Results - last 24 hr 01/11/25 09:12: WBC 10.7, RBC 3.75 L, Hgb 9.7 L, Hct 30.8 L, MCV 82.1, MCH 25.9 L, MCHC 31.5 L, RDW Std Deviation 44.1 H, RDW Coeff of Jessica 14.6, Plt Count 269, MPV 10.7, Immature Gran % (Auto) 0.600, Neut % (Auto) 91.7 H, Lymph % (Auto) 4.3 L, [place] % (Auto) 3.3, Eos % (Auto) 0.0, Baso % (Auto) 0.1, Absolute Neuts (auto) 9.8 H, Absolute Lymphs (auto) 0.46 L, Nucleated RBC % 0 Micro: Microbiology 01/10/25 07:05 Mucosa - Nose SARS-CoV-2, Influenza & RSV (PCR) - Final Radiography Diagnostic Testing: Radiology Impression Cholangiogram 01/10/25 16:10 IMPRESSION: As above Reading Location: [facility]
[2025-01-11 20:13] VITALS: BP 118/73; PULSE 83; RESP 15; TEMP 36.7; O2SAT 97
[2025-01-12 04:42] VITALS: BP 96/57; PULSE 81; RESP 15; TEMP 37; O2SAT 96
[2025-01-12] MEDS: Acetaminophen 500 MG Tablet 1000 MG PO (04:43)
[2025-01-12] MEDS: Ketorolac 30 MG/ML Syringe IM (04:43)
[2025-01-12] MEDS: Piperacil/Tazobactam 3.375 GM in 0.9% Normal Saline (50mL MB+) 50 ML IV (04:44)
[2025-01-12 06:15] LABS: Absolute Lymphocyte Count 0.87 X10^3/uL (0.83-4.51); Absolute Neutrophil Count 5.2 X10^3/uL (2.0-7.7); Basophil# 0.01 X10^3/uL; Basophil% 0.1 % (0-1); Eosinophil# 0.03 X10^3/uL; Eosinophils% 0.4 % (0-5); Hematocrit 27.2 % (37-47); Hemoglobin 8.5 g/dL (12.0-15.0); Lymphocyte # 0.87 X10^3/ul (0.83-4.51); Lymphocyte % 12.9 % (19-41); Mean Corp Hgb Conc 31.3 g/dL (32-36); Mean Corpuscular Hgb 25.6 pg (27.0-32.0); Mean Corpuscular Volume 81.9 fL (81-99); Mean Platelet Vol. 10.9 fl (6.2-12.0); Monocyte% 8.9 % (0-10); NRBC Flagged by Analyzer 0 % (0-5); Neutrophil % 77.1 % (47-70); Platelet Count 256 K/mm3 (150-450); RBC Distribution Width CV 14.8 % (11.6-14.6); RBC Distribution Width SD 44.3 fl (35.1-43.9); Red Blood Count 3.32 M/mm3 (4.2-5.4); White Blood Count 6.8 K/mm3 (4.4-11.0)
[2025-01-12 06:45] LABS: ALB/GLOB Ratio 0.8 RATIO (0.9-2.4); AST(SGOT) 18 U/L (15-37); Alanine Aminotransfer ALT/SGPT 32 U/L (13-56); Albumin, Serum 2.6 g/dL (3.2-5.0); Alkaline Phosphatase 78 U/L (45-117); Anion Gap 6 (5-15); BUN 13 mg/dL (7-18); BUN/Creat Ratio 15.5 RATIO (10-20); Calcium,Total 8.6 mg/dL (8.5-10.1); Chloride 109 mmol/L (98-107); Creatinine, Serum 0.84 mg/dL (0.55-1.02); EST Glomerular Filtration Rate 88 mL/min (>60); Est Glom Filt Rate - Afr Amer 106 mL/min (>60); Estimated Creatinine Clearance 81.56 ml/min; Globulin 3.4 g/dL (2.2-4.2); Glucose 123 mg/dL (74-106); Potassium 3.5 mmol/L (3.5-5.1); Sodium Level 140 mmol/L (136-145)
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
[2025-01-12 08:46] LABS: Pathologist Review Reviewed
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
[2025-01-12 09:40] VITALS: BP 92/50; PULSE 98; RESP 18; TEMP 36.8; O2SAT 97
[2025-01-12] MEDS: oxyCODONE 5 MG Tablet PO (09:50)
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
--- NOTE | 2025-01-12 11:45 | DCINST_ITS ---
Discharge Instructions Diet Discharge Diet: Light diet - advance as tolerated DC O2, CPAP, BIPAP needs Home O2 Discharge instructions: No Dressing / Incision Discharge Activity: May Not Drive (3-5 days or while taking narcotic pain medication) Lifting Restrictions: 20 pounds for 4 weeks Dressing / Incision Call your doctor if your incision/area has: Continuous Slow Oozing, Sudden Increased Bleeding, Increased Pain/ Swelling, Increased Redness, Foul Smelling Discharge and Swelling at the incision site Call your doctor if you observe: Fever of 101 or Higher Suture Line Care: Avoid Pulling/Pushing and Avoid Pinching/Bending Cleanse incision/area with: Soap & Water Follow Up Care Please Follow Up With: Beverley Cuellar PA-C When: Please contact our office at [phone], option #2 to schedule a follow- up appointment for 14 days Test Results: Test results from this visit will be discussed in further detail at your follow- up appointment, if applicable. Discharge Plan Admission Admit Date/Time: 01/10/25 11:21 Primary Reason for Your Visit: Chronic cholecystitis; Acute pyelonephritis Attending Provider: Rajendra Stubbs Primary Care Provider: Care Physician,No Primary Instructions Additional Instructions / Restrictions: Cholecystectomy Diet ? Start light with soups and soft bland foods. You may advance diet as tolerated. Activity ? You may drive in 3-5 days but not while taking narcotic pain medication. ? I encourage walking. You may go up steps, one at a time. ? Do not swim or use hot tubs for 2 weeks. ? For comfort, you may use warm compresses or ice as needed for 15-20 minutes at a time. Lifting ? You may lift up to 20 pounds for 4 weeks. Dressings/Incision ? You may shower over your incisions ? Do NOT tub bathe for 1 week Medications ? Anesthesia used during surgery and pain medications may cause constipation. I recommend initiating on the day of surgery a fiber supplement like, Metamucil, Citrucel, FiberCon, Benefiber, or a generic form of these medications. 1 heaping tablespoon in water daily. You may continue to utilize any bowel regimen or oral laxatives that you routinely take. ? As long as you are not intolerant to Tylenol, acetaminophen, ibuprofen, Motrin, Advil, Aleve, or similar medications, I would recommend transitioning to these [id number] medicines as soon as possible instead of continued use of narcotic pain medication. Follow up ? You should call [facility] soon after surgery, at [phone] option 2 to make a follow up appointment for 14 days after your surgery. Discharge Orders/Prescriptions Prescriptions: New acetaminophen 500 mg Tablet 1,000 mg PO Q8 Qty: 0 0RF oxycodone 5 mg Tablet 5 mg PO Q6H PRN PRN (Reason: Pain Score 4-10) 3 Days Qty: 10 0RF sulfamethoxazole-trimethoprim [Bactrim DS] 800-160 mg tablet 1 tab PO BID 8 Days Qty: 16 0RF Continued paliperidone 6 mg tablet extended release 24hr 6 mg PO QHS famotidine [Pepcid] 20 mg tablet 20 mg PO BID PRN (Reason: abby) buspirone 7.5 mg tablet 7.5 mg PO BID PRN (Reason: anxiety) promethazine 25 mg tablet 25 mg PO TID PRN (Reason: nausea/vomiting) Referrals / Follow Up: Counseling,Center [Group of Physicians] - 01/30/25 4:00 pm Care Physician,No Primary [Primary Care Provider] - Beverley Cuellar PA-C [Med Staff - [facility]] - 01/24/25 Disposition Disposition (needs filled in before D/C Order can be placed): Home, Self Care
== END 2025-01-12 12:27 | disposition home or self-care (01) ==
LOC: ED 11:11 → SDC 17:57 → MS3 17:58
PROVIDERS: Physician Assistant; Admitting Provider Surgery; Emergency Provider Emergency Medicine; Visit Provider Surgery
PROC: (CPT 47610; principal; 2025-01-10 15:10)
DX: K80.10 Calculus of gallbladder with chronic cholecystitis without obstruction (principal); J45.909 Unspecified asthma, uncomplicated; F17.290 Nicotine dependence, other tobacco product, uncomplicated; F17.220 Nicotine dependence, chewing tobacco, uncomplicated
CPT/HCPCS: 47563; 00790; C1769; 36415; 74177; 74300; 76000; 76705; 80053; 81001; 83690; 84703; 85025; 87631; 88304; 99284; Q9967; A4216; J2405

== ENCOUNTER 2025-04-11 00:47 | Emergency (ER) | payer MEDICAID, SELFPAY ==
[2025-04-11 00:48] VITALS: BP 152/92; PULSE 120; RESP 16; TEMP 37.1; O2SAT 99; BMI 27.8
--- NOTE | 2025-04-11 01:13 | CT_ITS ---
PROCEDURE: BRAIN/HEAD WITHOUT CONTRAST 04/11/2025 REASON FOR EXAM: HEAD INJURY TECHNIQUE: Head CT without intravenous contrast. Coronal and Sagittal reconstruction series were provided. One or more dose reduction techniques were used (e.g., Automated exposure control, adjustment of the mA and/or kV according to patient size, use of iterative reconstruction technique. RADIATION DOSE SUMMARY: CTDlvol: 44.99 mGy DLP: 745.49 mGycm COMPARISON: 10/02/2024 FINDINGS: No intracranial hemorrhage, mass effect or calvarial fracture. The ventricles are within limits and midline. Left forehead periorbital soft tissue swelling. Left nasal fracture and soft tissue swelling. CT/Brain/Head without Contrast IMPRESSION: No intracranial hemorrhage, mass effect or calvarial fracture. Left forehead periorbital soft tissue swelling. Left nasal fracture and soft tissue swelling. Reading Location: [id number]
--- NOTE | 2025-04-11 01:13 | CT_ITS ---
PROCEDURE: SINUS/FACIAL BONE REASON FOR EXAM: NASAL FRACTURE TECHNIQUE: CT of the paranasal sinuses without contrast. Coronal and Sagittal reconstruction series were provided. One or more dose reduction techniques were used (e.g., Automated exposure control, adjustment of the mA and/or kV according to patient size, use of iterative reconstruction technique). COMPARISON: Head CT 10/02/2024 FINDINGS: Mildly displaced and comminuted left nasal fracture with associated soft tissue swelling. No other fracture identified. Left forehead periorbital soft tissue swelling. Globes appear intact without retro bulbar stranding. Mild rightward septal nasal deviation. Right nasal septal spur. Paranasal sinuses are clear. Mastoids are clear. TMJs appear normally located. Bilateral mandibular large molar dental caries with periapical lucency associated with the 2 on the right and posterior most with possible area of osseous dehiscence sagittal 45. CT/Sinus/Facial Bone IMPRESSION: Mildly displaced and comminuted left nasal fracture with associated soft tissue swelling. Left forehead periorbital soft tissue swelling. Bilateral mandibular large molar dental caries with periapical lucency associat ed with the 2 on the right and posterior most with possible area of osseous dehiscence sagittal 45. Reading Location: [id number]
[2025-04-11] MEDS: oxyCODONE 5 MG Tablet 10 MG PO (01:21)
--- NOTE | 2025-04-11 02:22 | EX.ED.DYSGE1 ---
HPI History of Present Illness Chief Complaint: Other, Pain/Inj Informant: patient Narrative Narrative: Patient is a 25-year-old female with history of asthma migraine headache. She also reports history of schizophrenia. She states that she will sometimes release her anger on herself. She states roughly an hour prior to arrival she was striking her head/face off a wooden stud in the drywall. She denies any loss of consciousness history of bleeding disorder or blood thinner use. She states that she developed swelling to the forehead and nose as well as nasal bleeding. She states she has concern for nasal bone fracture and with this comes in for evaluation. [facility] Medical History UTI (urinary tract infection) Migraines Asthma SVT (supraventricular tachycardia) Home Medications ?Medication ?Instructions ?Recorded ?Last Taken ?Type paliperidone 6 mg tablet,extended 6 mg PO QHS 12/11/24 01/08/25 History release 24 hr buspirone 7.5 mg tablet 7.5 mg PO BID PRN anxiety 01/10/25 Unknown History famotidine 20 mg tablet (Pepcid) 20 mg PO BID PRN abby 01/10/25 Unknown History promethazine 25 mg tablet 25 mg PO TID PRN nausea/vomiting 01/10/25 Unknown History acetaminophen 500 mg tablet 1,000 mg (2 x 500 mg) PO Q8 #0 tabs 01/11/25 Unknown Rx oxycodone 5 mg tablet 5 mg PO Q6H PRN PRN Pain Score 01/11/25 Unknown Rx 4-10 3 days #10 tabs sulfamethoxazole 800 1 tab PO BID 8 days #16 tabs 01/11/25 Unknown Rx mg-trimethoprim 160 mg tablet (Bactrim DS) oxycodone-acetaminophen 5 mg-325 1 tab PO Q6H PRN pain 3 days #12 04/11/25 Unknown Rx mg tablet (Percocet) tabs Allergy/AdvReac Type Severity Reaction Status Date / Time diphenhydramine (From Allergy CHILDHOOD Verified 04/11/25 00:54 Benadryl) ALLERGY Surgical History H/O cardiac radiofrequency ablation History of Social History household members: family Smoking Status: Current every day smoker tobacco type: e-cigarettes ROS ROS ED Constitutional Constitutional ED: Denies chills or fever(s) Eyes Eyes: Denies blurry vision or change in vision ENT ENT ED: Reports other Details: Positive nasal swelling and bruising and nosebleed Cardiovascular Cardiovascular: Reports other Details: Negative syncope ; Denies chest pain Respiratory/Chest Respiratory/Chest: Denies cough or dyspnea Gastrointestinal Gastrointestinal: Denies abdominal pain, diarrhea, nausea or vomiting Musculoskeletal Musculoskeletal: Denies back pain or neck pain Integumentary Reports other Details: Positive facial swelling and bruising Neurologic Neurologic: Denies headache(s) Hematologic/Lymphatic Hematologic/Lymphatic: Denies easy bleeding or easy bruising EXAM Physical Exam Const Vital Signs: 04/11/25 00:48 Temperature 98.7 F Temperature Source Oral Pulse Rate 120 H Respiratory Rate 16 Blood Pressure 152/92 H Blood Pressure Mean 112 Pulse Ox 99 Oxygen Delivery Method Room Air Positive well nourished and well developed General Appearance ED: well developed HEENT HEENT Narrative: Patient has a 1 x 2 hematoma with ecchymosis along the left lateral forehead/frontal bone consistent with report of head trauma/facial injury There is soft tissue swelling and ecchymosis to the bridge of the nose as well No septal hematoma noted; there is a scant amount of blood within the bilateral nostrils No obvious dental fracture noted No signs of mandible or maxilla injury; no dislocation of the jaw. No signs of depressed or basilar skull fracture Eyes PERRL and EOMs intact bilaterally Eyes Narrative: Soft tissue swelling and ecchymosis to the left lateral forehead/temporal bone just above the left eyebrow as documented above No hyphema noted Neck supple Neck Narrative: No bony deformity or step-off of the cervical spine no midline tenderness to palpation Resp normal respiratory effort and clear to auscultation bilaterally Cardio regular rate and regular rhythm Extremity normal to inspection Neuro oriented x3, CN's II-XII intact bilaterally and no sensory deficits noted Sensorium / Orientation: alert Motor Exam: strength 5/5 throughout Psych mental status grossly normal Skin Skin Narrative: Soft tissue swelling to the face and bridge of the nose as documented above MDM MDM MDM Narrative Medical decision making narrative: Patient arrived to the ER hypertensive and tachycardic but was also anxious upon arrival. She reported self-inflicted wounds to the head/face. In order to rule out traumatic skull fracture versus traumatic subarachnoid or subdural hemorrhage versus nasal bone fracture I did like to perform CTs of the head and face. Head CT revealed no sign of skull fracture or traumatic bleed. CT of the face confirmed a comminuted left-sided nasal bone fracture but otherwise revealed no acute findings. The patient does not have a septal hematoma. There is no signs of a retrobulbar hematoma either. Therefore there is no need for emergent ENT/oral maxillofacial or neurosurgical consultation. Patient will be placed on pain medication secondary to the nasal bone fracture and advised to follow-up with ENT to discuss potential need for surgical fixation of her nasal bone if needed. However at this time there has been improvement of her vitals her neurologic exam is normal there is no sign of underlying traumatic brain injury and therefore she is otherwise safe for discharge. History & Record Review Discussion w/independent historian: Patient Radiography Diagnostic Testing: Clinical Impression(s) from Imaging Studies Brain CT 04/11/25 01:13 IMPRESSION: No intracranial hemorrhage, mass effect or calvarial fracture. Left forehead periorbital soft tissue swelling. Left nasal fracture and soft tissue swelling. Reading Location: [facility] Facial/Sinus 04/11/25 01:13 IMPRESSION: Mildly displaced and comminuted left nasal fracture with associated soft tissue swelling. Left forehead periorbital soft tissue swelling. Bilateral mandibular large molar dental caries with periapical lucency associated with the 2 on the right and posterior most with possible area of osseous dehiscence sagittal 45. Reading Location: [facility] Discharge Plan Triage Chief Complaint: Other, Pain/Inj ED Provider: Miki Lay Dx/Rx/DC Orders Clinical Impression: Traumatic hematoma of face, Fracture of nasal bones, Asthma, History of migraine headaches Instructions: ED Nose Fracture, with X-Ray, ED Hematoma Prescriptions: New oxycodone-acetaminophen [Percocet] 5-325 mg tablet 1 tab PO Q6H PRN (Reason: pain) 3 Days Qty: 12 0RF No Action paliperidone 6 mg tablet extended release 24hr 6 mg PO QHS famotidine [Pepcid] 20 mg tablet 20 mg PO BID PRN (Reason: abby) buspirone 7.5 mg tablet 7.5 mg PO BID PRN (Reason: anxiety) promethazine 25 mg tablet 25 mg PO TID PRN (Reason: nausea/vomiting) acetaminophen 500 mg Tablet 1,000 mg PO Q8 Qty: 0 0RF oxycodone 5 mg Tablet 5 mg PO Q6H PRN PRN (Reason: Pain Score 4-10) 3 Days Qty: 10 0RF sulfamethoxazole-trimethoprim [Bactrim DS] 800-160 mg tablet 1 tab PO BID 8 Days Qty: 16 0RF Primary Care Provider: Care Physician,No Primary Referrals: Zen Woodruff MD [Med Staff - Active Staff] - (Nasal fracture) Care Physician,No Primary [Primary Care Provider] - Activity Restrictions/Additional Instructions: Please take the Percocet as directed to help control pain from your nasal fracture. Continue to ice the area to reduce swelling and help with pain control. Follow-up with ENT to discuss potential need for surgical fixation and return to the ER should you have any further concerns Print Language: Nauruan Disposition Disposition: Home, Self Care Discharge Date/Time: 04/11/25 02:31
[2025-04-11 02:30] VITALS: BP 136/71; PULSE 95; RESP 18; TEMP 36.6; O2SAT 98
== END 2025-04-11 02:31 | disposition home or self-care (01) ==
PROVIDERS: Emergency Provider Emergency Medicine; Visit Provider Emergency Medicine
DX: S02.2XXA Fracture of nasal bones, initial encounter for closed fracture (principal); F20.9 Schizophrenia, unspecified; X83.8XXA Intentional self-harm by other specified means, initial encounter; J45.909 Unspecified asthma, uncomplicated; F17.290 Nicotine dependence, other tobacco product, uncomplicated; Z79.899 Other long term (current) drug therapy
CPT/HCPCS: 70450; 70486; 99282

== ENCOUNTER 2025-06-19 08:00 | Outpatient (RCR) | payer MEDICAID, SELFPAY ==
--- NOTE | 2025-06-19 10:00 | BH.SGPN.GN ---
Behaviors/Verbalizations/Mental Status: [] Eye contact is good. Motor activity is appropriate. Appearance is casual. Speech is Appropriate. Mood is dysthymic. Affect is congruent. Thoughts are linear and logical. No evidence of psychosis. Client Response/Progress/Benefit: [] Pt did not participated in group discussions however was attentive AEB taking notes. Attentive during psychoeducation on SMART Goal Setting. Attentive as group identifed common barriers to goal setting which included; mental health struggles, energy/motivation, limited support, change to routine, limited knowledge how to set goals, having unrealistic goals, and our internal expectations. Group also identified benefits of goals, which included: can map progress, it challenges one, can boast confidence, and can cause positive change/growth. Pt identified personal benefits to goal setting. Benefited from increased awareness of mental health benefits of goals as well as psychoeducation on SMART goal criteria. Will continue in IOP to prevent decompensation, stabilize mood, and improve functioning. Narrative Note: []
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
--- NOTE | 2025-06-19 11:05 | BH.SGPN.GN ---
Behaviors/Verbalizations/Mental Status: []Pt alert and oriented. Appearance is casual, hygiene is appropriate. Eye contact good. Motor activity appropriate. Speech within normal limits. Affect is anxious. Mood is constricted. Thoughts linear, logical, no signs of hallucinations or delusions. Client Response/Progress/Benefit: [] Pt was engaged during discussion and experiential activity. Completed the worksheet challenging them to develop a personal SMART goal. Pt chose a SMART goal to ?allow myself to love myself and realize my self-worth. Pt believes this goal will benefit pt through feeling better mentally. Identified obstacles such as depression, anxiety, timing, and negative thoughts. Pt was able to identify solutions including reminding herself that she will not always feel low, affirmations, and practicing self-compassion. Benefited from this group by developing a short-term SMART goal related to mental health. Will continue IOP to prevent decompensation, gain healthy coping skills, and improve functioning. Narrative Note: []
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
--- NOTE | 2025-06-22 10:20 | BH.DR.ITP ---
Initial Treatment Plan Patient Information Visit Information: ADMISSION DATE: EXPECTED LOS: 6-8 weeks Diagnoses:: Schizophrenia spectrum Problems/Symptoms Problem #1:: Schizophrenia spectrum disorder Symptom:: Auditory and visual hallucinations, reports blackout spells, feeling easily overwhelmed and anxious at times
--- NOTE | 2025-06-22 11:10 | BH.SGPN.GN ---
Behaviors/Verbalizations/Mental Status: [] Client alert and oriented, casually dressed and groomed. Eye contact good. Motor activity appropriate. Speech within normal limits. Affect congruent, mood euthymic. Thoughts linear, logical, no signs of hallucinations or delusions Client Response/Progress/Benefit: [] Client responded well to session, attentive. Did well to process activity and work with group to relate the strategies used to overcome barriers in the activity to managing change in own life. Client identified a change they would like to make along with the stage of change they are currently in and a small goal to support it. Appeared to benefit from identifying a small goal to work towards. Client will continue IOP tx to prevent decompensation, gain healthy coping skills, and improve daily functioning. Narrative Note: []
[2025-06-22 11:11] VITALS: BP 147/95; PULSE 57
== END 2025-06-22 23:59 ==
LOC: BHIOP 08:00
PROVIDERS: Referring Provider Internal Medicine; Visit Provider Internal Medicine
DX: F20.9 Schizophrenia, unspecified (principal)
CPT/HCPCS: H2012; S9480; 90837

== ENCOUNTER 2025-06-23 07:52 | Outpatient (RCR) | payer MEDICAID, SELFPAY ==
--- NOTE | 2025-06-27 14:47 | BH.COMM ---
Communication Note Communication with Client Communication Note: Pt scheduled for IOP group on this date; however, did not show. Pt later called indicating that she overslept and would like to reschedule for later in the week.
--- NOTE | 2025-06-28 14:48 | BH.COMM ---
Communication Note Communication with Client Communication Note: Pt scheduled for IOP group and individual sessions on this date. Pt did not show or call to cancel. Pt later called in reporting difficulties with motivation and in getting out of bed in the morning despite acknowledging the importance of tx at this time. Reports wanting to remain in the program and a desire to work on her mental health. Therapist provided emotion validation and offered to look into transportation resources to reduce additional barriers.
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
--- NOTE | 2025-06-29 10:15 | BH.SGPN.GN ---
Behaviors/Verbalizations/Mental Status: []Client alert and oriented, casually dressed. Eye contact good. Motor activity appropriate. Speech loud and rapid. Affect congruent, mood stressed and excitable. Thoughts linear, logical, no signs of hallucinations or delusions. Client Response/Progress/Benefit: [] Pt was an active participant AEB taking notes and engaging in group activity. Connected with the topic of pitfalls and listened to group discussion on barriers that prevent from choosing a healthier path to mental wellness. Group worked together to identify examples of personal pitfalls. These examples included; shutting down, not asking for help, negative thinking patterns, avoidance, and isolation. In the experiential activity pt struggled at times to listen to others? ideas. Pt benefited from group as Pt learned to better identify potential barriers to improving mental health symptoms. Identified personal barrier of lack of motivation. Pt will continue IOP tx to prevent decompensation, improve daily functioning, and gain healthy coping skills. Narrative Note: []
--- NOTE | 2025-06-29 11:15 | BH.SGPN.GN ---
Behaviors/Verbalizations/Mental Status: [] Client Response/Progress/Benefit: [] Narrative Note: []
--- NOTE | 2025-06-30 11:51 | BH.COMM ---
Communication Note Communication with Client Communication Note: Pt scheduled for IOP group and individual sessions on this date. Pt did not show or call to cancel.
--- NOTE | 2025-07-05 09:37 | BH.COMM ---
Communication Note Communication with Client Communication Note: Pt scheduled for IOP group on this date; however, did not show.
--- NOTE | 2025-07-06 11:46 | BH.DS_ITS ---
Discharge Summary Demographics Date of Admission:: 06/19/25 Discharge Date: 07/06/25 Presenting Problems at Admission:: Felicia is a 25y/o female who presented to [facility] program for further evaluation and treatment of depression and possible schizophrenia versus schizoaffective disorder. She was referred to [facility] by [facility] after an evaluation on 05/22/2025 when she texted her ex-boyfriend that she was suicidal, her ex then contacted police for a welfare check. She was subsequently referred to [facility]. Pt reports that prior to that, in a separate incident, she had also been coming off of a aguiar in which she had been mixing Percocet, Suboxone and other medications. Reports she then felt so overwhelmed she texted the ex- boyfriend (father of her children) that she was suicidal and then the reservation sales agent and CPS showed up and her children were taken away. Pt is currently granted supervised visitation with them and is working to stabilize her mental health in order to regain her children. Discharge Diagnoses:: Schizophrenia, unspecified: Problem Details:Rule out schizoaffective disorder Reason for Discharge:: Pt to discharge from [facility] as pt had multiple no-call/no- shows and has not returned to the IOP program since 06/29/25. Pt has been in attendance 3 of 9 scheduled days, leaving part day one of these days. Multiple attempts have been made to follow-up with pt; however, pt has not returned any calls. Treatment Progress During Treatment & Response: Limited progress as pt did not attend IOP for more than 4 sessions. Pt did well individually, however was only seen once due to unattendance. When in attendance she reported benefitting from [facility] support and information learned. Issues Still to be Addressed:: Pt can benefit from ongoing therapy to process her PTSD, improve distress tolerance, and prevent relapse. Pt can also benefit from parenting classes. Discharge Recommendations/Instructions:: Pt encouraged to continue with outpatient therapy, she was unable to be given referral resources due to lack of attendance. Discharge Handout
== END 2025-07-06 11:48 | disposition home or self-care (01) ==
LOC: BHIOP 07:52
PROVIDERS: Referring Provider Internal Medicine; Visit Provider Internal Medicine
DX: F20.9 Schizophrenia, unspecified (principal)
CPT/HCPCS: H2020

== ENCOUNTER 2025-08-16 10:18 | Emergency (ER) | payer MEDICAID, SELFPAY ==
[2025-08-16 10:19] VITALS: BP 136/95; PULSE 97; RESP 18; TEMP 36.9; O2SAT 99; BMI 26.5
--- NOTE | 2025-08-16 12:06 | RAD_ITS ---
PROCEDURE: THORACIC SPINE 3 VIEWS 08/16/2025 REASON FOR EXAM: BACK PAIN TECHNIQUE: Procedure Code: RADSPT Modality: DX Procedure: THORACIC SPINE 3 VIEWS COMPARISON: None FINDINGS: Vertebral body heights and alignment normal. Disc spaces negative. Facet joints negative. No fractures and no dislocations. Cervicothoracic and thoracolumbar junctions negative. RAD/Thoracic Spine 3 Views IMPRESSION: Negative thoracic spine. Reading Location: [place] [address]
[2025-08-16 12:18] VITALS: BP 134/76; PULSE 80; RESP 18; O2SAT 100
[2025-08-16 12:38] LABS: Mucous, Urine 0 SEEN /hpf (<or=2+); Red Blood Cells-Urine 0 SEEN /hpf (0-5)
[2025-08-16 12:41] LABS: Color, Urine Yellow (Yellow); Glucose, Dipstick Normal (Normal); Ketone-Dipstick Negative (Negative); Leukocyte Esterase-Dipstick 100 /ul (Negative); Nitrite-Dipstick Negative (Negative); Occult Blood-Urine Negative /ul (Negative); Protein-Dipstick 15 mg/dl (Negative); Specific Gravity, Urine 1.010 (1.002-1.030); Urine Bilirubin Dipstick Negative (Negative)
[2025-08-16 12:51] LABS: Squamous Epithelial Cells - UA 5-10 SEEN /hpf (5-10)
[2025-08-16 12:53] LABS: Internal QC Validated? YES +Cl - CLEAR BKGD; Pregnancy, Urine Negative Negative
[2025-08-16 12:54] LABS: Record Kit Lot#,Urine Preg 0000964736
--- NOTE | 2025-08-16 13:16 | ED.VIS.BACK ---
HPI History of Present Illness Chief Complaint: Back Informant: patient Onset/Context/Timing Onset: Today Context: Sudden Onset Injury: other (Coughing thank) Timing: Continuous Quality: Sharp Location: Thoracic Worsened by: improves with Movement Relieved by: Nothing Associated Symptoms Associated Symptoms: Negative for Numbness, Tingling, Radiation to Right Leg, Radiation to Left Leg, Fever, Abdominal Pain, Dysuria, Unable to Ambulate, Unable to Transfer, Urinary Retention, Urinary Incontinence, Constipation or Fecal Incontinence Narrative Narrative: Patient presents with back pain that began today. Patient states she was coughing and felt some pain in her lower thoracic area. Patient states it began rather suddenly. Patient states it is sharp. Patient states it is worse with any movement. Patient states nothing makes it better. Patient denies any radiation of the pain. Patient denies any paresthesias or weakness. Patient denies any bowel or bladder changes. Patient denies any saddle anesthesia. [facility] Medical History UTI (urinary tract infection) Migraines Asthma SVT (supraventricular tachycardia) Home Medications ?Medication ?Instructions ?Recorded ?Last Taken ?Type naproxen 500 mg tablet 500 mg PO BID PRN #20 tabs 08/16/25 Unknown Rx Allergy/AdvReac Type Severity Reaction Status Date / Time diphenhydramine (From Allergy CHILDHOOD Verified 08/16/25 10:20 Benadryl) ALLERGY Surgical History History of cholecystectomy H/O cardiac radiofrequency ablation History of Social History household members: family Smoking Status: Current every day smoker tobacco type: e-cigarettes ROS ROS ED Constitutional Constitutional ED: Denies chills or fever(s) Eyes Eyes: Denies blurry vision or change in vision ENT ENT ED: Denies rhinorrhea or sore throat Cardiovascular Cardiovascular: Denies chest pain or palpitations Respiratory/Chest Respiratory/Chest: Reports cough; Denies dyspnea Gastrointestinal Gastrointestinal: Denies nausea or vomiting Genitourinary Genitourinary ED: Denies dysuria or hematuria Musculoskeletal Musculoskeletal: Reports back pain and neck pain Integumentary Denies abscess or rash Neurologic Neurologic: Reports headache(s); Denies weakness Allergic/Immunologic Allergic/Immunologic ED: Denies mouth swelling or urticaria EXAM Physical Exam Const Vital Signs: 08/16/25 10:19 08/16/25 12:18 Temperature 98.5 F Temperature Source Oral Pulse Rate 97 80 Respiratory Rate 18 18 Blood Pressure 136/95 H 134/76 H Blood Pressure Mean 108 95 Pulse Ox 99 100 Oxygen Delivery Method Room Air Room Air Positive well nourished and well developed General Appearance ED: well developed and NAD HEENT Reports moist mucous membranes Neck supple and no JVD Back/Spine Back/Spine Narrative: There is mild tenderness to lower thoracic spine paraspinal muscles on the left. There is no bony crepitance or step-off. There is good range of motion. Thoracic Spine / Upper Back: paraspinal muscle tenderness left Extremity normal to inspection General Extremety ED: Negative for edema or tenderness General Extremity: Negative for edema Neuro oriented x3 and no sensory deficits noted Sensorium / Orientation: alert Motor Exam: strength 5/5 throughout Psych mental status grossly normal MDM MDM MDM Narrative Medical decision making narrative: Differential diagnosis includes urinary tract infection, musculoskeletal strain, and occult fracture. X-rays of the thoracic spine will be obtained to assess for occult fracture or spondylolisthesis. Urinalysis will be obtained to assess for urinary tract infection and hematuria. Lab Data Attestation: I reviewed the patient's lab results. Lab results narrative: Urinalysis was reviewed. There is no evidence of urinary tract infection or hematuria. Urine hCG was reviewed and was negative. Labs: Laboratory Results - last 24 hr 08/16/25 12:30 Urine Color Yellow Urine Clarity Sl. Cloudy Urine pH 6.5 Ur Specific [employer] 1.010 Urine Protein 15 H Urine Glucose (UA) Normal Urine Ketones Negative Urine Occult Blood Negative Urine Nitrite Negative Urine Bilirubin Negative Urine Urobilinogen Normal Ur Leukocyte Esterase 100 H Urine RBC 0 SEEN Urine WBC 0-5 SEEN Ur Squamous Epith Cells 5-10 SEEN Urine Bacteria 1+ Urine Mucus 0 SEEN Urine Test Negative Radiography Diagnostic Testing: Clinical Impression(s) from Imaging Studies Thoracic Spine X-Ray 08/16/25 12:06 IMPRESSION: Negative thoracic spine. Reading Location: [place] [address] X-rays of the thoracic spine were obtained. There are 2 views. On my independent interpretation, there is no acute fracture or spondylolisthesis noted. Radiologist also interpreted the x-rays and agrees. Treatment and Re-Evaluation Narrative: Patient was given a dose of [place] and Zofran here. Patient was advised of her findings. Patient was given a prescription for Naprosyn. Patient was instructed to follow-up with her primary care physician in 5 to 7 days. Patient understood and was agreeable with the plan. All questions were answered. Discharge Plan Triage Chief Complaint: Back ED Provider: Rob Queen Dx/Rx/DC Orders Clinical Impression: Strain of thoracic back region Instructions: ED Back Sprain/Strain Prescriptions: New naproxen 500 mg tablet 500 mg PO BID PRN Qty: 20 0RF Stand Alone Forms: ED Work / School Excuse Primary Care Provider: Care Physician,No Primary Referrals: Edgar Gutierrez MD [Med Staff - Active Staff, Family Practice] - 5-7 Days Care Physician,No Primary [Primary Care Provider, Medical] Print Language: Vietnamese Disposition Disposition: Home, Self Care
[2025-08-16] MEDS: HYDROcodone Bitartrate/Apap 5/325 Tablet PO (13:30)
[2025-08-16 13:56] VITALS: BP 117/89; PULSE 81; RESP 16; TEMP 37; O2SAT 100
== END 2025-08-16 13:56 | disposition home or self-care (01) ==
PROVIDERS: Emergency Provider Emergency Medicine; Visit Provider Emergency Medicine
DX: S29.012A Strain of muscle and tendon of back wall of thorax, initial encounter (principal); X58.XXXA Exposure to other specified factors, initial encounter; M54.2 Cervicalgia; R05.9 Cough, unspecified; J45.909 Unspecified asthma, uncomplicated; F17.290 Nicotine dependence, other tobacco product, uncomplicated
CPT/HCPCS: J2405; 72072; 81001; 81025; 99282

== ENCOUNTER 2025-09-18 21:12 | Emergency (ER) | payer MEDICAID, SELFPAY ==
[2025-09-18 21:13] VITALS: BP 130/82; PULSE 76; RESP 18; TEMP 36.6; O2SAT 100
[2025-09-18] MEDS: 0.9% Normal Saline (1000mL) 1,000 ML 999 ML IV (21:36)
[2025-09-18 21:40] LABS: Hematocrit 41.4 % (37-47); Hemoglobin 12.6 g/dL (12.0-15.0); Immature Granulocytes Count 0.120 X10^3/uL (0.0-0.0); Mean Corp Hgb Conc 30.4 g/dL (32-36); Mean Corpuscular Volume 83.5 fL (81-99); Mean Platelet Vol. 10.8 fl (6.2-12.0); NRBC Flagged by Analyzer 0 % (0-5); Platelet Count 416 K/mm3 (150-450); RBC Distribution Width CV 15.0 % (11.6-14.6); RBC Distribution Width SD 45.7 fl (35.1-43.9); Red Blood Count 4.96 M/mm3 (4.2-5.4); White Blood Count 20.5 K/mm3 (4.4-11.0)
--- NOTE | 2025-09-18 21:55 | RAD_ITS ---
PROCEDURE: RAD/Chest 1 View (Portable)
[2025-09-18 21:57] LABS: Anion Gap 13 (5-15); BUN 15 mg/dL (4-19); BUN/Creat Ratio 19.4 RATIO (10-20); Calcium,Total 9.3 mg/dL (7.6-11.0); Carbon Dioxide 23.4 mmol/L (21.0-32.0); Chloride 106 mmol/L (98-108); Glucose 136 mg/dL (70-99); Potassium 3.8 mmol/L (3.3-5.1); Troponin T High Sensitivity 8 ng/L (<=14)
[2025-09-18 22:12] VITALS: BP 138/108; PULSE 60; RESP 22; O2SAT 100
--- NOTE | 2025-09-18 22:29 | ED.VIS.CHEST ---
HPI History of Present Illness Chief Complaint: Chest Pain Narrative Narrative: Patient is a 25-year-old female presenting to the emergency department for nausea, vomiting and chest pain. Patient has a past medical history of schizophrenia, anxiety, SVT status post ablations and cannabis use. States that she uses cannabis daily and last use this afternoon. States she woke up from a nap and developed nausea with multiple episodes of nonbloody, nonbilious vomiting. States that she is having midsternal chest pain as well. She denies any fever, chills, cough, congestion prior to this. Denies any abdominal pain, diarrhea, constipation, dysuria or hematuria. PFSH PFS Medical History UTI (urinary tract infection) Migraines Asthma SVT (supraventricular tachycardia) Home Medications ?Medication ?Instructions ?Recorded ?Last Taken ?Type naproxen 500 mg tablet 500 mg PO BID PRN #20 tabs 08/16/25 Unknown Rx ondansetron 4 mg disintegrating 4 mg PO Q8H PRN PRN Nausea #10 tabs 09/18/25 Unknown Rx tablet Allergy/AdvReac Type Severity Reaction Status Date / Time diphenhydramine (From Allergy CHILDHOOD Verified 09/18/25 21:18 Benadryl) ALLERGY Surgical History History of cholecystectomy H/O cardiac radiofrequency ablation History of Social History household members: family Smoking Status: Current every day smoker tobacco type: e-cigarettes ROS ROS ED ROS Narrative see HPI EXAM Physical Exam Narrative Exam Narrative: Vital signs: Reviewed General: Alert and oriented x 3. Acute distress secondary to dry heaving HEENT: Head is normocephalic and atraumatic, sinuses nontender, pupils equal round and reactive. Nares are patent. Oropharynx and throat exams normal. Neck: Supple without lymphadenopathy nontender Cardiovascular: Regular rate and rhythm, no murmurs. No rubs or gallops. Normal S1 and S2 Respiratory: Clear to auscultation bilaterally. No wheezes, rales, rhonchi Chest: Chest wall is nontender to palpation. There is no crepitus, erythema or ecchymosis. Abdominal: Soft and nontender. Normal bowel sounds. No guarding or rebound. Nonsurgical abdomen Extremities: No tenderness. No bruising. Normal range of motion. Normal sensation. Skin: No rash or redness. Neurological: Cranial nerves II through XII are grossly intact. Normal strength and sensation. Normal cerebellar function The rest of the physical exam is unremarkable Const Vital Signs: 09/18/25 21:13 09/18/25 21:16 09/18/25 22:12 Temperature 97.8 F Temperature Source Oral Pulse Rate 76 60 Respiratory Rate 18 22 H Respiratory Effort Normal Non-Labored Respiratory Pattern Normal Blood Pressure 130/82 H 138/108 H Blood Pressure Mean 98 118 Pulse Ox 100 100 Oxygen Delivery Method Room Air Room Air 09/18/25 23:00 09/18/25 23:36 Temperature 98 F Temperature Source Pulse Rate 73 69 Respiratory Rate 17 17 Respiratory Effort Respiratory Pattern Blood Pressure 120/71 121/74 H Blood Pressure Mean 87 89 Pulse Ox 98 97 Oxygen Delivery Method Room Air MDM MDM MDM Narrative Medical decision making narrative: Patient is a 25-year-old female presenting to the emergency department for nausea, vomiting and chest pain. Patient was seen and examined. Vitals are stable. Patient is in acute distress when I enter the room due to dry heaving. Screaming asking for Zofran immediately when I enter the room. Differential includes but is not limited to: Cannabis hyperemesis syndrome, gastroenteritis, ACS, less likely Christine-Matson tear given no blood in the vomit. Well-appearing, nontoxic, no crepitus of the chest wall, do not think this is Boerhaave's. Patient received Zofran by EMS. No vomiting in the room but she has dry heaving. Fluid bolus and Haldol given due to concern for cannabis hyperemesis syndrome. EKG shows sinus rhythm with a sinus arrhythmia. There is no ischemic changes. No ST elevation or depression. CBC with leukocytosis of 20.5, I do think this is reactive from her vomiting today. She has no abdominal pain on exam and is afebrile. I do not think she has acute intra-abdominal pathology that is causing her symptoms. Given her unremarkable abdominal exam I do not think she requires imaging of her abdomen at this time. Hemoglobin within normal limits. BMP with no significant abnormalities. Initial troponin of 8 and reflex of 10. Chest x-ray reviewed by myself. No opacities, pneumothorax or widened mediastinum. No pneumomediastinum noted. Patient was reevaluated after fluids and Haldol. She is resting comfortably in bed. States that the chest pain, nausea and vomiting have improved. I educated her on her negative cardiac workup. I did recommend that she stops using marijuana daily and prescribed her Zofran for home to take as needed every 6 to 8 hours. Patient discharged from the Emergency Department. I do not feel that the patient's evaluation reveals any acute reason for admission at this time. I instructed them to either follow-up with their primary care physician or promptly return to the Emergency Department for reevaluation should symptoms worsen or new symptoms develop. I explained what symptoms would indicate the need to return to the emergency department. Shared decision making was used. The patient voiced understanding of the treatment plan and is agreeable with it. Clinical impression Chest pain Nausea and vomiting Cannabis hyperemesis History & Record Review Discussion w/independent historian: Patient Lab Data Attestation: I reviewed the patient's lab results. Labs: Laboratory Results - last 24 hr 09/18/25 09/18/25 20:55 22:48 WBC 20.5 H RBC 4.96 Hgb 12.6 Hct 41.4 MCV 83.5 MCH 25.4 L MCHC 30.4 L RDW Std Deviation 45.7 H RDW Coeff of Jessica 15.0 H Plt Count 416 MPV 10.8 Immature Gran % (Auto) 0.600 Neut % (Auto) 86.2 H Lymph % (Auto) 4.9 L [place] % (Auto) 6.3 Eos % (Auto) 1.7 Baso % (Auto) 0.3 Absolute Neuts (auto) 17.7 H Absolute Lymphs (auto) 1.00 Nucleated RBC % 0 Sodium 142 Potassium 3.8 Chloride 106 Carbon Dioxide 23.4 Anion Gap 13 BUN 15 Creatinine 0.77 Est GFR (MDRD) Non-Af 109 BUN/Creatinine Ratio 19.4 Glucose 136 H Calcium 9.3 Troponin T High Sens 8 Troponin T Hi Sens 2 Hr 10 Radiography Chest X-Ray - ED: 1 View, Normal, No Acute Disease and No Infiltrates Diagnostic Testing: Clinical Impression(s) from Imaging Studies Chest X-Ray 09/18/25 21:55 IMPRESSION: No Acute Findings. Reading Location: [facility] Discharge Plan Triage Chief Complaint: Chest Pain ED Provider: Simin Lauren Dx/Rx/DC Orders Clinical Impression: Nausea & vomiting, Chest pain Instructions: ED Chest Pain, Uncertain Cause, ED Vomiting (Adult) Prescriptions: New ondansetron 4 mg tablet,disintegrating 4 mg PO Q8H PRN PRN (Reason: Nausea) Qty: 10 0RF No Action naproxen 500 mg tablet 500 mg PO BID PRN Qty: 20 0RF Primary Care Provider: Care Physician,No Primary Referrals: Edgar Gutierrez MD [Med Staff - Active Staff, Family Practice] - As soon as possible Care Physician,No Primary [Primary Care Provider, Medical] Activity Restrictions/Additional Instructions: Please abstain from cannabis use. This is likely worsening your nausea and vomiting. Your evaluation in the Emergency Department did not reveal any acute reason for admission. However, I want to emphasize that you may be early in the course of a disease process or illness even if it is not present. For this reason you should follow-up within 24 hours for reevaluation with either your primary care physician or if necessary back here in the Emergency Department. You should return to the Emergency Department immediately if your symptoms worsen or new symptoms develop. Print Language: Yi Disposition Disposition: Home, Self Care
[2025-09-18 23:00] VITALS: BP 120/71; PULSE 73; RESP 17; O2SAT 98
[2025-09-18 23:25] LABS: Troponin T High Sens 2 HR 10 ng/L (<=14)
[2025-09-18 23:36] VITALS: BP 121/74; PULSE 69; RESP 17; TEMP 36.6; O2SAT 97
== END 2025-09-18 23:45 | disposition home or self-care (01) ==
PROVIDERS: Emergency Provider Student in an Organized Health Care Education/Training Program; Visit Provider Student in an Organized Health Care Education/Training Program
DX: R07.2 Precordial pain (principal); F20.9 Schizophrenia, unspecified; R11.16 Cannabis hyperemesis syndrome; F12.90 Cannabis use, unspecified, uncomplicated; J45.909 Unspecified asthma, uncomplicated; F41.9 Anxiety disorder, unspecified; F17.290 Nicotine dependence, other tobacco product, uncomplicated; Z79.899 Other long term (current) drug therapy
CPT/HCPCS: 71045; 80048; 84484; 85025; 93005; 96361; 96374; 96375; 99285; A4216; J2405

== ENCOUNTER → 2025-10-02 | Outpatient (CLI) | payer MEDICAID, SELFPAY ==
[2025-10-02 12:38] LABS: hCG Titer Quant., Serum 293 mIU/mL (<9 non-preg)
== END | disposition home or self-care (01) ==
LOC: VSLAB 10:14
DX: Z32.01 Encounter for pregnancy test, result positive (principal)
CPT/HCPCS: 36415; 84702

== ENCOUNTER 2025-10-27 08:20 | Emergency (ER) | payer MEDICAID, SELFPAY ==
[2025-10-27 08:22] VITALS: BP 147/95; PULSE 85; RESP 14; TEMP 36.6; O2SAT 98; BMI 26.2
--- NOTE | 2025-10-27 08:54 | ED.VIS.FEGU ---
HPI HPI - Female History of Present Illness Chief Complaint: Vag Bld, Preg Informant: patient Associated Symptoms P: 3 Ab: 3 Narrative Narrative: 25-year-old female, 7 with 3 living children, 8 weeks 2 days , presents with vaginal bleeding that began last night. Initially noted a quarter-sized blood spot in underwear; no blood on wiping then. This morning developed bright red bleeding approximately quarter-sized with each void, without tissue passage, and cramping in the lower back. Reports right-sided pain under the ribs, worse with deep inspiration, and a constant dull ache in the center of the back. Nausea and vomiting recently x couple weeks; has not been able to keep much down but staying hydrated. Notes decreased symptoms (less breast tenderness and nausea). Denies urinary problems. Yesterday had a transvaginal ultrasound showing heart rate 152 with appropriate measurements; also had a Pap smear, told no expected cause for bleeding beyond possible light spotting. Prior miscarriage before 7 weeks (described as chemical ). History of kidney infections; back pain and vomiting feel similar, but clinician felt current pain less likely renal. PFSH PFSH Medical History UTI (urinary tract infection) Migraines Asthma SVT (supraventricular tachycardia) Home Medications ?Medication ?Instructions ?Recorded ?Last Taken ?Type naproxen 500 mg tablet 500 mg PO BID PRN #20 tabs 08/16/25 Unknown Rx ondansetron 4 mg disintegrating 4 mg PO Q8H PRN PRN Nausea #10 tabs 09/18/25 Unknown Rx tablet Allergy/AdvReac Type Severity Reaction Status Date / Time diphenhydramine (From Allergy CHILDHOOD Verified 10/27/25 08:21 Benadryl) ALLERGY Penicillins AdvReac Other Verified 10/27/25 08:22 Surgical History History of cholecystectomy H/O cardiac radiofrequency ablation History of Social History household members: family Smoking Status: Current every day smoker tobacco type: e-cigarettes ROS ROS ED Constitutional Constitutional ED: Denies chills or fever(s) Eyes Eyes: Denies change in vision or diplopia ENT ENT ED: Denies rhinorrhea or sore throat Cardiovascular Cardiovascular: Denies chest pain or palpitations Respiratory/Chest Respiratory/Chest: Denies cough or dyspnea Gastrointestinal Gastrointestinal: Reports abdominal pain; Denies diarrhea, nausea or vomiting Genitourinary Genitourinary ED: Denies dysuria or hematuria Musculoskeletal Musculoskeletal: Reports back pain; Denies neck pain Integumentary Denies abscess or rash Neurologic Neurologic: Denies headache(s), paresthesias or weakness Psychiatric Psychiatric: Denies suicidal thoughts EXAM Physical Exam Const Vital Signs: 10/27/25 08:22 10/27/25 10:20 Temperature 98 F Temperature Source Oral Pulse Rate 85 80 Respiratory Rate 14 14 Blood Pressure 147/95 H 128/83 H Blood Pressure Mean 112 98 Pulse Ox 98 100 Oxygen Delivery Method Room Air Room Air Positive well nourished and well developed Constitutional Narrative: Well-appearing NAD General Appearance ED: well developed and NAD HEENT Reports moist mucous membranes normocephalic and atraumatic Eyes PERRL and EOMs intact bilaterally Neck full ROM and supple Resp normal respiratory effort and clear to auscultation bilaterally Cardio regular rate, regular rhythm and no murmurs GI non-distended GI Narrative: Mildly tender right upper quadrant negative Rothman otherwise benign abdomen no pelvic tenderness. Auscultation: normoactive bowel sounds Palpation: soft Back/Spine no CVA tenderness General Back: other FROM without apparent discomfort/limitation Extremity normal to inspection General Extremety ED: Negative for edema, pulses abnormal or tenderness General Extremity: Negative for edema or pulses abnormal Neuro oriented x3, CN's II-XII intact bilaterally and no sensory deficits noted Sensorium / Orientation: awake and alert Motor Exam: strength 5/5 throughout Skin no rashes or lesions noted and no wounds MDM MDM MDM Narrative Medical decision making narrative: Bedside ultrasound, patient has single live intrauterine with heart tones 149. Patient is clinically hemodynamically stable her blood type is O+ RhoGAM not indicated. Otherwise her labs are normal there is no leukocytosis, electrolyte imbalance, elevated liver enzyme or lipase. Her urine shows no pyuria and I do not think has any infection. She was given some Tylenol which helped a little with regards to her right upper quadrant pain, I reexamined her she is tender over the lower ribs in addition to the right upper quadrant subcostal. She has no GI symptoms now to suggest this is GI and her labs are normal. It is worse when she moves. I suspect this is muscular and she states she is in agreement that could be the case, she had been vomiting a lot given her early . Given the ultrasound showing a single live intrauterine , she is not tender in her pelvis and I have no suspicion for heterotopic, and her blood counts are stable with a hemoglobin of 11.2 and normal vital signs I feel she stable for discharge home and close outpatient follow-up with her front end mechanic. She has increased bleeding over the weekend she is advised to call them. History & Record Review Additional record(s) reviewed:: Prior labs (Blood type O+) Lab Data Attestation: I reviewed the patient's lab results. Labs: Laboratory Results - last 24 hr 10/27/25 10/27/25 10/27/25 08:36 08:59 09:30 WBC 7.2 RBC 4.29 Hgb 11.2 L Hct 34.6 L MCV 80.7 L MCH 26.1 L MCHC 32.4 RDW Std Deviation 44.3 H RDW Coeff of Jessica 15.4 H Plt Count TNP MPV 11.8 Immature Gran % (Auto) 0.300 Neut % (Auto) 69.6 Lymph % (Auto) 19.2 [place] % (Auto) 8.1 Eos % (Auto) 2.2 Baso % (Auto) 0.6 Absolute Neuts (auto) 5.0 Absolute Lymphs (auto) 1.37 Nucleated RBC % 0 Platelet Estimate ADEQUATE Sodium Cancelled 137 Potassium Cancelled 3.9 Chloride Cancelled 104 Carbon Dioxide Cancelled 22.1 Anion Gap Cancelled 11 BUN Cancelled 9 Creatinine Cancelled 0.58 L Estim Creat Clear Calc Cancelled 119.96 Est GFR (MDRD) Non-Af Cancelled 128 BUN/Creatinine Ratio Cancelled 16.4 Glucose Cancelled 101 H Calcium Cancelled 9.2 Total Bilirubin Cancelled 0.22 AST Cancelled 23 ALT Cancelled 19 Alkaline Phosphatase Cancelled 98 Total Protein Cancelled 6.9 Albumin Cancelled 4.0 Globulin Cancelled 2.9 Albumin/Globulin Ratio Cancelled 1.4 Lipase Cancelled 24 Urine Color Yellow Urine Clarity Sl. Cloudy Urine pH 7.0 Ur Specific [place] 1.015 Urine Protein 30 H Urine Glucose (UA) Normal Urine Ketones Negative Urine Occult Blood 250 H Urine Nitrite Negative Urine Bilirubin Negative Urine Urobilinogen Normal Ur Leukocyte Esterase 100 H Urine RBC 0 SEEN Urine WBC 0-5 SEEN Ur Squamous Epith Cells 5-10 SEEN Amorphous Sediment 2+ PHOS Urine Bacteria RARE Urine Mucus 0 SEEN Discharge Plan Triage Chief Complaint: Vag Bld, Preg ED Provider: Yannick Singh Dx/Rx/DC Orders Clinical Impression: Strain of abdominal muscle, Threatened in first trimester Instructions: Miscarriage Threatened Prescriptions: No Action naproxen 500 mg tablet 500 mg PO BID PRN Qty: 20 0RF ondansetron 4 mg tablet,disintegrating 4 mg PO Q8H PRN PRN (Reason: Nausea) Qty: 10 0RF Primary Care Provider: Care Physician,No Primary Referrals: Narcisa Merchant MD [Med Staff - Active Staff, Obstetrics-Gynecology (OBGYN)] - As soon as possible Activity Restrictions/Additional Instructions: May take Tylenol and/or place topical pain relievers on muscle strain area, such as Biofreeze, lidocaine patch, etc. Print Language: [place]ian Disposition Disposition: Home, Self Care
[2025-10-27 09:11] LABS: Mucous, Urine 0 SEEN /hpf (<or=2+); Red Blood Cells-Urine 0 SEEN /hpf (0-5)
[2025-10-27 09:12] LABS: Hematocrit 34.6 % (37-47); Hemoglobin 11.2 g/dL (12.0-15.0); Immature Granulocytes Count 0.020 X10^3/uL (0.0-0.0); Mean Corp Hgb Conc 32.4 g/dL (32-36); Mean Corpuscular Volume 80.7 fL (81-99); Mean Platelet Vol. 11.8 fl (6.2-12.0); NRBC Flagged by Analyzer 0 % (0-5); POSITIVE COUNT YES; RBC Distribution Width CV 15.4 % (11.6-14.6); RBC Distribution Width SD 44.3 fl (35.1-43.9); Red Blood Count 4.29 M/mm3 (4.2-5.4); White Blood Count 7.2 K/mm3 (4.4-11.0)
[2025-10-27 09:12] LABS: Color, Urine Yellow (Yellow); Glucose, Dipstick Normal (Normal); Ketone-Dipstick Negative (Negative); Leukocyte Esterase-Dipstick 100 /ul (Negative); Nitrite-Dipstick Negative (Negative); Occult Blood-Urine 250 /ul (Negative); Protein-Dipstick 30 mg/dl (Negative); Specific Gravity, Urine 1.015 (1.002-1.030); Urine Bilirubin Dipstick Negative (Negative)
[2025-10-27 09:26] LABS: Squamous Epithelial Cells - UA 5-10 SEEN /hpf (5-10)
[2025-10-27 09:34] LABS: Differential Indicated SCAN CRITERIA MET
[2025-10-27 09:53] LABS: Lipase 24 U/L (13-75)
[2025-10-27 10:01] LABS: AST(SGOT) 23 U/L (<=31); Alanine Aminotransfer ALT/SGPT 19 U/L (<=34); Albumin, Serum 4.0 g/dL (3.5-5.0); Alkaline Phosphatase 98 U/L (35-104); Anion Gap 11 (5-15); BUN 9 mg/dL (4-19); BUN/Creat Ratio 16.4 RATIO (10-20); Calcium,Total 9.2 mg/dL (7.6-11.0); Carbon Dioxide 22.1 mmol/L (21.0-32.0); Chloride 104 mmol/L (98-108); Estimated Creatinine Clearance 119.96 ml/min (50-250); Globulin 2.9 g/dL (2.2-4.2); Glucose 101 mg/dL (70-99); Potassium 3.9 mmol/L (3.3-5.1)
[2025-10-27 10:20] VITALS: BP 128/83; PULSE 80; RESP 14; O2SAT 100
[2025-10-27 11:27] VITALS: BP 126/84; PULSE 80; RESP 14; TEMP 36.6; O2SAT 100
== END 2025-10-27 11:28 | disposition home or self-care (01) ==
PROVIDERS: Emergency Provider Emergency Medicine; Visit Provider Emergency Medicine
DX: O20.0 Threatened abortion (principal); O9A.211 Injury, poisoning and certain other consequences of external causes complicating pregnancy, first trimester; S39.011A Strain of muscle, fascia and tendon of abdomen, initial encounter; X58.XXXA Exposure to other specified factors, initial encounter; O26.21 Pregnancy care for patient with recurrent pregnancy loss, first trimester; O99.331 Smoking (tobacco) complicating pregnancy, first trimester; F17.290 Nicotine dependence, other tobacco product, uncomplicated; Z3A.08 8 weeks gestation of pregnancy
CPT/HCPCS: 80053; 81001; 83690; 85025; 99285; A4216